=== PATIENT | male | born 1950 | race Caucasian/White ===

== ENCOUNTER 2016-05-29 14:01 | Inpatient (IN) | payer BC ==
--- NOTE | 2016-05-29 14:04 | PDOC ---
History of Present Illness - General History Source: Patient Exam Limitations: No Limitations - History of Present Illness Initial Comments: 05/29/16 14:20 The patient is a 65 year old male, with significant past medical history of GERD , HTN, who presents today complaining of chest pain starting this morning. The patient was talking to his son when he felt a sharp pain localized to the middle of his chest. He states the pain is a 4/10 in severity and was accompanied by sweats. The patient states that the chest pain is present at this moment. He denies performing any strenuous activity or heavy lifting. The patient notes that he is scheduled for a cholecystectomy on 06/08/16. No SOB, cough. No fever, chills, nausea, vomiting. No abdominal pain. Allergies: none reported 05/29/16 14:27 <Rosita Lima - Last Filed: 05/29/16 15:54> <Uzma Pacheco - Last Filed: 05/29/16 15:56> - General Chief Complaint: Chest Pain Stated Complaint: CHEST PAIN Time Seen by Provider: 05/29/16 14:03 Past History <Rosita Lima - Last Filed: 05/29/16 15:54> <Uzma Pacheco - Last Filed: 05/29/16 15:56> - Past Medical History Allergies/Adverse Reactions: Allergies Allergy/AdvReac Type Severity Reaction Status Date / Time No Known Allergies Allergy Verified 05/29/16 14:03 Home Medications: Ambulatory Orders Nebivolol [Bystolic -] 5 mg PO DAILY 05/29/16 Review of Systems - Review of Systems Able to Perform ROS?: Yes Comments:: 05/29/16 14:22 GENERAL/CONSTITUTIONAL: Yes: sweats. No fever or chills. No weakness. HEAD, EYES, EARS, NOSE AND THROAT: No change in vision. No ear pain or discharge. No sore throat. CARDIOVASCULAR: Yes: chest pain. No shortness of breath. RESPIRATORY: No cough, wheezing, or hemoptysis. GASTROINTESTINAL: No nausea, vomiting, diarrhea or constipation. GENITOURINARY: No dysuria, frequency, or change in urination. MUSCULOSKELETAL: No joint or muscle swelling or pain. No neck or back pain. SKIN: No rash NEUROLOGIC: No headache, vertigo, loss of consciousness, or change in strength/ sensation. ENDOCRINE: No increased thirst. No abnormal weight change. HEMATOLOGIC/LYMPHATIC: No anemia, easy bleeding, or history of blood clots. ALLERGIC/IMMUNOLOGIC: No hives or skin allergy. <Rosita Lima - Last Filed: 05/29/16 15:54> *Physical Exam - Vital Signs Last Vital Signs Temp Pulse Resp BP Pulse Ox 98.5 F 55 L 18 169/90 100 05/29/16 14:02 05/29/16 14:02 05/29/16 14:02 05/29/16 14:02 05/29/16 14:02 - Physical Exam Comments: 05/29/16 14:22 GENERAL: Anxious. Awake, alert, and fully oriented, in no acute distress HEAD: No signs of trauma EYES: PERRLA, EOMI, sclera anicteric, conjunctiva clear ENT: Auricles normal inspection, hearing grossly normal, nares patent, oropharynx clear without exudates. Moist mucosa NECK: Normal ROM, supple, no lymphadenopathy, JVD, or masses LUNGS: Breath sounds equal, clear to auscultation bilaterally. No wheezes, and no crackles HEART: Regular rate and rhythm, normal S1 and S2, no murmurs, rubs or gallops ABDOMEN: Soft, nontender, normoactive bowel sounds. No guarding, no rebound. No masses EXTREMITIES: Normal range of motion, no edema. No clubbing or cyanosis. No cords, erythema, or tenderness NEUROLOGICAL: Cranial nerves II through XII grossly intact. Normal speech, normal gait SKIN: Warm, Dry, normal turgor, no rashes or lesions noted. <Rosita Lima - Last Filed: 05/29/16 15:54> Heart Score/ECG Review - History History: Moderately suspicious - Electrocardiogram EKG: Non specific repolarization disturbance - Age Age: >/= 65 - Risk Factors Risk Factors Heart Score: Yes Hx Hypertension Based on the list above the patient has:: 1-2 risk factors - Troponin Troponin: </= normal limit - Score Heart Score - Total: 5 <Uzma Pacheco - Last Filed: 05/29/16 15:56> ED Treatment Course - LABORATORY CBC & Chemistry Diagram: 05/29/16 14:17 05/29/16 14:17 - RADIOLOGY Radiograph Interpretation: 05/29/16 14:32 EXAM#: TYPE/EXAM: RESULT: [id number] RAD/CHEST X-RAY PORTABLE* AP portable chest: Chest pain A single AP view of the chest reveals clear lungs, degenerative changes, normal mediastinum, prominent knob, normal shilpa and normal heart. The angles are sharp and the soft tissues are intact. An acute process is not seen. Impression: No acute pathology. No studies for comparison. Reported By: Jose Bejarano MD 05/29/16 1430 - Medications Given in the ED: ED Medications Discontinued Medications Generic Name Dose Route Start Last Admin Trade Name Freq PRN Reason Stop Dose Admin Aspirin 324 mg 05/29/16 14:14 05/29/16 14:17 Asa - PO 05/29/16 14:15 324 mg ONCE ONE Administration <Rosita Lima - Last Filed: 05/29/16 15:54> - LABORATORY CBC & Chemistry Diagram: 05/29/16 14:17 05/29/16 14:17 <Uzma Pacehco - Last Filed: 05/29/16 15:56> Medical Decision Making - Medical Decision Making 05/29/16 15:54 Dr. Morales was paged via paging service at 3:33pm. Dr. Malone is engineering document control clerk, awaiting call back. Dr. Malone called at 3:50pm and spoke with Dr. Pacheco regarding the patient' s care. <Rosita Lima - Last Filed: 05/29/16 15:54> *DC/Admit/Observation/Transfer - Attestations Scribe Attestion: 05/29/16 14:23 Documentation prepared by KAT Rosado, acting as dental assistant medical assistant for Uzma Pacheco MD. <Rosita Lima - Last Filed: 05/29/16 15:54> - Discharge Dispostion Admit: Yes <Uzma Pacheco - Last Filed: 05/29/16 15:56> Diagnosis at time of Disposition: Chest pain Qualifiers: Chest pain type: unspecified Qualified Code(s): R07.9 - Chest pain, unspecified - Discharge Dispostion Condition at time of disposition: Stable
[2016-05-29 14:05] VITALS: BMI 28.8
[2016-05-29] MEDS ORDERED: ASPIRIN 81 MG CHEWABLE TABLETS PO ONE (14:14)
[2016-05-29] MEDS ORDERED: NITROGLYCERIN SUBLINGUAL 1/150 0.4 MG TAB ONE (14:28)
[2016-05-29] MEDS ORDERED: NITROGLYCERIN SUBLINGUAL 1/150 0.4 MG TAB SL ONE (14:30)
[2016-05-29 14:37] LABS: BASOPHIL 0.9 % (0-2.0); EOSINOPHIL 2.5 % (0-4.5); MCH 31.6 pg (25.7-33.7); MCHC 34.8 g/dl (32.0-35.9); MEAN CELL VOLUME 90.8 fl (80-96); MEAN PLT VOLUME 8.1 fl (7.5-11.1); NEUTROPHILS 49.9 % (42.8-82.8); PLATELET COUNT 196 K/MM3 (134-434); RDW 12.5 % (11.9-15.9); WHITE BLOOD COUNT 6.9 K/mm3 (4.0-10.0)
[2016-05-29 14:42] LABS: INR 1.1 (0.82-1.09); PROTHROMBIN TIME (PATIENT) 12.3 SEC (10.2-13.0)
[2016-05-29 14:47] LABS: ALBUMIN 3.9 g/dl (3.5-5.0); ALK PHOS 122 U/L (32-92); ANION GAP 5 (8-16); CALCIUM 9.6 mg/dl (8.4-10.2); CO2 25 mmol/L (22-28); CPK(DFH) 75 IU/L (38-174); CREATININE 0.8 mg/dl (0.6-1.3); GLUCOSE,RANDOM 92 mg/dl (74-106); SGOT/AST 40 U/L (10-42); SGPT/ALT 29 U/L (10-40); TOT PROT 7.2 g/dl (6.4-8.3)
[2016-05-29] MEDS ORDERED: FAMOTIDINE 20 MG/50 ML IVPB 50 ML IVPB ONE ×2 (15:21→15:25)
[2016-05-29 15:26] LABS: TROPONIN I (DFP) < 0.03 ng/ml (0.03-0.50)
[2016-05-29] MEDS ORDERED: morphine CARPU-JECT 4 MG/1 ML DISP.SYRIN IVPUSH ONE (16:51)
[2016-05-29] MEDS ORDERED: morphine CARPU-JECT 2 MG/1 ML DISP.SYRIN IVPUSH PRN ×2 (16:55→17:20)
--- NOTE | 2016-05-29 16:57 | ED.PROV ---
Physicial Exam I saw and examined the patient. - Vital Signs Last Vital Signs Temp Pulse Resp BP Pulse Ox 97.6 F 54 L 18 131/70 100 05/29/16 16:26 05/29/16 16:26 05/29/16 16:26 05/29/16 16:26 05/29/16 16:26 - Physical Exam Reason for Response: 05/29/16 16:57 Called to bedside, as patient developed acute pain in the epigastric/substernal region. He is pacing in the room, in obvious discomfort. VSS. Will give morphine for pain.
[2016-05-29] MEDS ORDERED: NITROGLYCERIN SUBLINGUAL 1/150 0.4 MG TAB SL PRN (17:30)
[2016-05-29] MEDS ORDERED: DOCUSATE SODIUM 100 MG CAPSULE (FP) PO PRN (17:31)
[2016-05-29] MEDS ORDERED: DEXTROSE 5%-0.45% SALINE 1,000 ML IV SCH (17:45)
[2016-05-29] MEDS ORDERED: ONDANSETRON 4 MG/2 ML VIAL ONE (17:47)
[2016-05-29] MEDS: HEPARIN NA (PORCINE) 5,000 UNITS/ML 1ML VIAL SQ SCH (21:15)
[2016-05-29] MEDS: FAMOTIDINE 20 MG/50 ML IVPB 50 ML IVPB SCH (21:15)
[2016-05-29 21:33] LABS: CPK(DFH) 52 IU/L (38-174)
[2016-05-29 21:49] LABS: TROPONIN I (DFP) < 0.03 ng/ml (0.03-0.50)
[2016-05-30 04:27] LABS: TROPONIN I < 0.02 ng/ml (0.00-0.05)
[2016-05-30 08:10] LABS: EOSINOPHIL 0.2 % (0-4.5); MCHC 33.7 g/dl (32.0-35.9); MEAN PLT VOLUME 8.2 fl (7.5-11.1); NEUTROPHILS 83.9 % (42.8-82.8); PLATELET COUNT 172 K/MM3 (134-434); RDW 12.5 % (11.9-15.9); WHITE BLOOD COUNT 11.6 K/mm3 (4.0-10.0)
[2016-05-30 08:43] LABS: ALBUMIN 3.3 g/dl (3.5-5.0); ALK PHOS 170 U/L (32-92); ANION GAP 6 (8-16); BILIRUBIN,TOTAL 4.6 mg/dl (0.2-1.0); CALCIUM 8.7 mg/dl (8.4-10.2); CO2 27 mmol/L (22-28); CREATININE 0.8 mg/dl (0.6-1.3); GLUCOSE,RANDOM 119 mg/dl (74-106); SGOT/AST 196 U/L (10-42); SGPT/ALT 247 U/L (10-40); TOT PROT 6.2 g/dl (6.4-8.3)
[2016-05-30] MEDS ORDERED: morphine CARPU-JECT 4 MG/1 ML DISP.SYRIN ONE (08:50)
[2016-05-30] MEDS ORDERED: ONDANSETRON 4 MG/2 ML VIAL ONE (08:50)
[2016-05-30] MEDS ORDERED: morphine CARPU-JECT 4 MG/1 ML DISP.SYRIN IVPUSH ONE (08:51)
[2016-05-30] MEDS ORDERED: ONDANSETRON 4 MG/2 ML VIAL IVPUSH ONE (08:51)
--- NOTE | 2016-05-30 08:57 | ED.PROV ---
Physicial Exam I saw and examined the patient. - Vital Signs Last Vital Signs Temp Pulse Resp BP Pulse Ox 100.3 F H 60 18 102/57 95 05/30/16 07:41 05/30/16 06:08 05/30/16 06:08 05/30/16 06:08 05/30/16 07:42 - Physical Exam Reason for Response: 05/30/16 08:53 Asked to evaluate this patient who is admitted to the hospital. The patient c/ o severe burning epigastric pain this am that was unrelieved with morphine 2mg IV. The patient's admitting physician has not responded to nursing calls. The patient says that he has had this pain intermittently for the past month. The pain is localized to the epigastrium. Respiratory/Chest: positive: Normal Breath Sounds. negative: Chest Tender Cardiovascular: positive: Regular Rhythm, Regular Rate, S1, S2 Critical Care Time/MDM Note - Medical Decision Making Note: 05/30/16 08:54 65 y/o male with h/o gall stones and epigastric pain. DDx includes but is not limited to: cholecystitis, pancreatitis, ACS, aortic emergnecy. Plan: 1. Labs--cardiac enzymes and lipase 2. EKG 3. Urine analysis 4. Pain control with higher doses of narcotics 5. Zofran for nausea 6. Will discuss with PCP/admitting physician
[2016-05-30] MEDS: FAMOTIDINE 20 MG/50 ML IVPB 50 ML IVPB SCH ×2 (09:34→22:10)
[2016-05-30] MEDS: HEPARIN NA (PORCINE) 5,000 UNITS/ML 1ML VIAL SQ SCH ×2 (09:35→22:09)
[2016-05-30] MEDS: PNEUMOC 13-VAL CONJ-DIP CRM/PF 0.5 ML DISP.SYRIN IM ONE ×2 (09:35→10:42)
--- NOTE | 2016-05-30 09:47 | PN ---
Progress Note (short form) - Note Progress Note: ID Consult dictated Acute cholecystitis Possible biliary sepsis Possible gallstone pancreatitis Obtain c/s Surgical evaluation Empiric Zosyn
[2016-05-30] MEDS ORDERED: NEBIVOLOL 5 MG TABLET (FP) PO SCH (10:00)
[2016-05-30] MEDS ORDERED: PIPERACILLIN/TAZOB 4.5 GM 4.5 GM in DEXTROSE 5%-WATER - 100 ML IVPB SCH (10:00)
[2016-05-30 10:10] LABS: CPK(DFH) 40 IU/L (38-174)
[2016-05-30 10:20] LABS: TROPONIN I (DFP) < 0.03 ng/ml (0.03-0.50)
--- NOTE | 2016-05-30 10:42 | HP ---
Admitting History and Physical - Primary Care Physician PCP: Sheri Morales - Admission Chief Complaint: RUQ abdominal pain radiating to his right side of back since monday History of Present Illness: 65 yr old male came in on monday with sudden onset of excruciating RUQ and epigastric pain and right sided chest pain, had some nausea as well and he came to ER and found to have elevated temp 100.7 and wbc high. per patient he had similar attack about a month ago was at [facility] he got ivabx there and was told that he needs surgery but patient was skeptical about that and refused he has been seeing dr hutchinson every since that episode to see how he is doing he is schedule for gall ballder surgery on june [address] hutchinson in ER: he got asa ful dose and NTG morphine iv abx today he has temp 100.3 elevated wbc count just came back from liver sono was in excruciationg pain in epigastric and RUQ region nad right lower chest wall area earlier today get 2mg morphine no relief then got another 2mg morphine and now pain free History Source: Patient - Past Medical History Cardiovascular: Yes: HTN Gastrointestinal: Yes: GERD - Smoking History Smoking history: Never smoked Have you smoked in the past 12 months: No - Alcohol/Substance Use Hx Alcohol Use: No Home Medications - Allergies Allergies/Adverse Reactions: Allergies Allergy/AdvReac Type Severity Reaction Status Date / Time No Known Allergies Allergy Verified 05/29/16 14:03 - Home Medications Home Medications: Ambulatory Orders Nebivolol [Bystolic -] 5 mg PO DAILY 05/29/16 Review of Systems - Review of Systems Constitutional: reports: Other (no abdominal or chest wall pain- got morphine no nausea- got zofran) Physical Examination Vital Signs: Vital Signs Temperature 100.3 F H 05/30/16 07:41 Pulse Rate 79 05/30/16 09:40 Respiratory Rate 18 05/30/16 09:40 Blood Pressure 125/67 05/30/16 09:40 O2 Sat by Pulse Oximetry (%) 95 05/30/16 07:42 Constitutional: Yes: Calm Neck: Yes: Trachea Midline Cardiovascular: Yes: Regular Rate and Rhythm, S1, S2 Respiratory: Yes: CTA Bilaterally Gastrointestinal: Yes: Soft, Hypoactive Bowel Sounds, Other (no tenderness on exam bc he got iv pain meds a little while ago) Edema: No Neurological: Yes: Alert, Oriented Psychiatric: Yes: Alert, Oriented Labs: CBC, BMP 05/30/16 07:25 05/30/16 07:25 Imaging - Results Ultrasound: Pending Problem List - Problems (1) RUQ abdominal pain Assessment/Plan: NPO r/o cholecystitis iv abx ID on board dr hutchinson to see patient regarding surgery iv fluids iv pain meds iv zofran elevated LFT cehck GGTP and trend LFT DVT px Code(s): R10.11 - RIGHT UPPER QUADRANT PAIN (2) Chest pain Assessment/Plan: most likey liver related pain control will need surgery and med clearance so will get cardio to see patient CE negatie 2 sets EKG NSR Code(s): R07.9 - CHEST PAIN, UNSPECIFIED Qualifiers: Chest pain type: unspecified Qualified Code(s): R07.9 - Chest pain, unspecified (3) GERD (gastroesophageal reflux disease) Assessment/Plan: iv meds Code(s): K21.9 - GASTRO-ESOPHAGEAL REFLUX DISEASE WITHOUT ESOPHAGITIS (4) HTN (hypertension) Assessment/Plan: bystolic Code(s): I10 - ESSENTIAL (PRIMARY) HYPERTENSION
[2016-05-30] MEDS ORDERED: morphine CARPU-JECT 4 MG/1 ML DISP.SYRIN IVPUSH PRN (10:48)
--- NOTE | 2016-05-30 11:02 | CONS ---
DATE OF CONSULTATION: HISTORY: The patient is a 65-year-old male with a known history of cholelithiasis evaluated for fever and abdominal pain. The patient recently had an attack of acute cholecystitis and was hospitalized at [facility]. He was scheduled to have an elective cholecystectomy on June 08, 2016. He was now admitted with complaints of chest pain. He was admitted through the emergency room on May 29, 2016 with complaints of sternal chest pain. His course has been complicated by recurrent, severe epigastric pain associated with nausea but no vomiting. He also has developed low-grade fever. The patient denies any shortness of breath or palpitations. Denies diarrhea. He reports the pain he is experiencing is similar to the pain he had with his acute cholecystitis. PAST MEDICAL HISTORY: Positive for hypertension and gastroesophageal reflux. He is nondiabetic. ALLERGIES: No known allergies. MEDICATIONS: Include Bystolic. SOCIAL HISTORY: He resides at home. Denies tobacco, alcohol, or illicit drug use. REVIEW OF SYSTEMS: Neurologic: No loss of consciousness, seizure activity, or focal weakness. Cardiac: As per HPI. Respiratory: Negative cough or sputum production. Gastrointestinal: As per HPI. Genitourinary: Negative for urinary tract infection. LABORATORY DATA: White count 6.9, hematocrit 45.2, platelet count 196, BUN 16, creatinine 0.8. DIAGNOSTIC DATA: Chest x-ray negative for acute infiltrate. PHYSICAL EXAMINATION: General: He is in moderate distress secondary to epigastric pain. Vital Signs: Temperature 100.3, T-max 100.7, blood pressure 102/57, pulse 60 regular, respirations 18 per minute. HEENT: Sclerae mildly icteric. Dry mucous membranes. Heart: Sounds S1, S2. Lungs: Clear. Abdomen: Hypoactive bowel sounds. At the present time, there is no tenderness elicited. No right upper quadrant or epigastric tenderness to palpation. Extremities: Negative for edema. IMPRESSION: 1. Acute cholecystitis. 2. Possible biliary sepsis. 3. Chest pain syndrome, likely secondary to cholecystitis. 4. Possible gallstone pancreatitis. PLAN: Await blood culture results, surgical evaluation. Empiric antibiotic coverage with Zosyn 4.5 g IV piggyback every 8 hours. Analgesics. We will follow. Thank you for the kind referral. JOSÉ MIGUEL REYNAGA M.D. [id number]
--- NOTE | 2016-05-30 11:10 | CONSULT ---
Consult Consult Specialty:: Cardiology Referred by:: Dr Freitas Reason for Consultation:: CP, pre-op - History of Present Illness Chief Complaint: epigastric pain History of Present Illness: 65 yo male with remote smoking (jn his 20s), recent hx of hx (about a month ago) , recently developed abd pain -. dx with cholelithiasis and scheduled for surgery on 06/17/[address] hutchinson, presents here with severe epigastric pain. Patient clearly describes pain in epigastric area with some radiation laterally to the right, but no chest or back radiation. he reports some SOB with the severe pain, but no palpitations or dizziness. He is now pain free after pain meds He has no history of CAD, NE, CP syndrome or CHF. - History Source History Provided By: Patient - Past Medical History Cardio/Vascular: Yes: HTN (recent diagnosis a month ago after being diagnosed with cholelithiasis) Gastrointestinal: Yes: GERD Hepatobiliary: Yes: Cholelithiasis - Past Surgical History Additional Surgical History: right hernia, cataract (? side), left ear for tympanic membrane upture?, left finger resection after a table saw accident in 2008 - Alcohol/Substance Use Hx Alcohol Use: No - Smoking History Smoking history: Former smoker (remote, in his 20s) Have you smoked in the past 12 months: No - Social History Usual Living Arrangement: With Spouse (2nd spouse) Home Medications - Allergies Allergies/Adverse Reactions: Allergies Allergy/AdvReac Type Severity Reaction Status Date / Time No Known Allergies Allergy Verified 05/29/16 14:03 - Home Medications Home Medications: Ambulatory Orders Nebivolol [Bystolic -] 5 mg PO DAILY 05/29/16 Family Disease History - Family Disease History Family History: Denies (premature CAD, though father of Mi at 70. Had had valve surgery earlier) Review of Systems - Review of Systems Constitutional: reports: Fever (at gonzalo eof exam) Eyes: reports: No Symptoms HENT: reports: No Symptoms Neck: reports: No Symptoms Cardiovascular: reports: Edema (rare dependent (has varicosities)), Shortness of Breath (with the epigastric pain) Gastrointestinal: reports: Abdominal Pain (epigastric) Genitourinary: reports: No Symptoms Musculoskeletal: reports: No Symptoms Neurological: reports: No Symptoms Psychiatric: reports: No Symptoms Physical Exam Vital Signs: Vital Signs Temperature 102.1 F H 05/30/16 10:00 Pulse Rate 79 05/30/16 09:40 Respiratory Rate 18 05/30/16 09:40 Blood Pressure 125/67 05/30/16 09:40 O2 Sat by Pulse Oximetry (%) 95 05/30/16 07:42 Constitutional: Yes: No Distress Eyes: Yes: Conjunctiva Clear HENT: Yes: Atraumatic Neck: Yes: Supple Cardiovascular: Yes: Regular Rate and Rhythm. No: Murmur Respiratory: Yes: CTA Bilaterally Gastrointestinal: Yes: Normal Bowel Sounds, Soft, Tenderness (mild) Extremities: Yes: Other (warm, mild varicosities) Edema: No Peripheral Pulses WNL: Yes Neurological: Yes: Alert, Oriented Psychiatric: Yes: Alert, Oriented Labs: CBC, BMP 05/30/16 07:25 05/30/16 07:25 Imaging - Results Chest X-ray: Report Reviewed, Image Reviewed EKG: Report Reviewed, Image Reviewed (SR, RBBB, no acute changes(repeat EKG w/o sign changes)) Other: Other (tele -. SR) Assessment/Plan 65 yo male with the above history, here with severe epigastric pain -. ruled out for NE (has had 4 neg trop I) EKG w/o acute changes I think the epigastric pain was truly from his GB disease rather than atypical angina No cardiac contraindications to the intended surgery Rec: Proceed with ERCP/surgery as deemed indicated Continue bystolic Pain management Per Im/GI/surgery Thanks! We'll follow! D/w pt and at bedside D/w RN
[2016-05-30] MEDS: ACETAMINOPHEN 1000 MG/100 ML VIAL (NON FORMULARY) IVPB PRN (11:31)
[2016-05-30 11:40] LABS: PH,URINE 5.5 (4.5-8); URINE APPEARANCE Clear; URINE BILIRUBIN 3+ (NEGATIVE); URINE GLUCOSE (UA) Negative (NEGATIVE); URINE KETONE Negative (NEGATIVE); URINE LEUK ESTERASE Negative (NEGATIVE); URINE NITRITE Negative (NEGATIVE); URINE PROTEIN Trace (NEGATIVE); URINE UROBILINOGEN 1.0 E.U/dl (0.2-1.0)
[2016-05-30 12:00] LABS: URINE BLOOD TRACE (NEGATIVE); URINE COLOR DK YELLOW
[2016-05-30 12:02] LABS: URINE MUCUS 1+; URINE WBC 0-3 (3-5)
--- NOTE | 2016-05-30 12:43 | PN ---
Progress Note (short form) - Note Progress Note: spoke to surgery plan for surgery later in week after ERCP awaitng ultrasound report will consult GI for ERCP given elevated LFT repeat LFT in am Problem List - Problems (1) RUQ abdominal pain Code(s): R10.11 - RIGHT UPPER QUADRANT PAIN (2) Chest pain Code(s): R07.9 - CHEST PAIN, UNSPECIFIED Qualifiers: Qualified Code(s): R07.9 - Chest pain, unspecified (3) GERD (gastroesophageal reflux disease) Code(s): K21.9 - GASTRO-ESOPHAGEAL REFLUX DISEASE WITHOUT ESOPHAGITIS (4) HTN (hypertension) Code(s): I10 - ESSENTIAL (PRIMARY) HYPERTENSION
--- NOTE | 2016-05-30 12:43 | PN ---
Progress Note (short form) - Note Progress Note: surgery asked to evaluate for abd pain. full eval to follow. Labs suspicious for choledocholithiasis and dilated cbd. Dr. Diaz to be called to evaluate for ERCP.
--- NOTE | 2016-05-30 12:50 | PN ---
Progress Note (short form) - Note Progress Note: dr kylie woodson go to [facility] will consult dr haley and see if hey have priviliges there dr s[place] Problem List - Problems (1) RUQ abdominal pain Code(s): R10.11 - RIGHT UPPER QUADRANT PAIN (2) Chest pain Code(s): R07.9 - CHEST PAIN, UNSPECIFIED Qualifiers: Chest pain type: unspecified Qualified Code(s): R07.9 - Chest pain, unspecified (3) GERD (gastroesophageal reflux disease) Code(s): K21.9 - GASTRO-ESOPHAGEAL REFLUX DISEASE WITHOUT ESOPHAGITIS (4) HTN (hypertension) Code(s): I10 - ESSENTIAL (PRIMARY) HYPERTENSION
--- NOTE | 2016-05-30 13:50 | PN ---
Progress Note (short form) - Note Progress Note: dr hansa wolfe ERCP and dulce maria haley and wilfrido wilder come [facility] will have paient transfer to [facility] for ERCP and then surgery spoke to electric motor repair supervisor Problem List - Problems (1) RUQ abdominal pain Code(s): R10.11 - RIGHT UPPER QUADRANT PAIN (2) Chest pain Code(s): R07.9 - CHEST PAIN, UNSPECIFIED Qualifiers: Chest pain type: unspecified Qualified Code(s): R07.9 - Chest pain, unspecified (3) GERD (gastroesophageal reflux disease) Code(s): K21.9 - GASTRO-ESOPHAGEAL REFLUX DISEASE WITHOUT ESOPHAGITIS (4) HTN (hypertension) Code(s): I10 - ESSENTIAL (PRIMARY) HYPERTENSION
--- NOTE | 2016-05-30 14:19 | EKG ---
Test Reason : Blood Pressure : / mmHG Vent. Rate : 055 BPM Atrial Rate : 055 BPM P-R Int : 130 ms QRS Dur : 128 ms QT Int : 452 ms P-R-T Axes : 045 -37 020 degrees QTc Int : 432 ms SINUS BRADYCARDIA LEFT AXIS DEVIATION RIGHT BUNDLE BRANCH BLOCK NO PREVIOUS ECGS AVAILABLE Confirmed by MD FRAUSTO MARJORY ([id number]) on 05/30/2016 2:19:45 PM Referred By: CARMINA LUCAS Confirmed By:LEFTY FRAUSTO MD
[2016-05-30] MEDS ORDERED: SODIUM CHLORIDE 1,500 ML IV ONE (16:15)
--- NOTE | 2016-05-30 16:22 | CON.GI ---
Consult Consult Specialty:: GI Referred by:: Dr Morales Reason for Consultation:: abdominal pain - History of Present Illness Chief Complaint: Abdominal and chest pain History of Present Illness: 65 seen last month at [facility] with abdominal pain that proved to be cholecystitis. He was seen by Dr Carbajal who planned on doing abbie as opt next week. The patient now comes to the the [facility] with severe epigastric/ chest pain which began acutely. A consult was called with Dr Brunson but he is on vacation and as such,, the patient was transferred here after spending 36 hours at [facility]. On admission he had markedly elevated LFTs with a t bili of 4.6. This morning prior to his transfer here he had a BP of 78/55, and a temp >102. He states the pain resolved at ~9AM and he currently feels much better. He has had no radiologic studies done and no repeat BW to this point. - History Source History Provided By: Patient, Medical Record Limitations to Obtaining History: No Limitations - Past Medical History Cardio/Vascular: Yes: HTN (recent diagnosis a month ago after being diagnosed with cholelithiasis) Gastrointestinal: Yes: GERD Hepatobiliary: Yes: Cholelithiasis - Past Surgical History Additional Surgical History: right hernia, cataract (? side), left ear for tympanic membrane upture?, left finger resection after a table saw accident in 2008 - Alcohol/Substance Use Hx Alcohol Use: No - Smoking History Smoking history: Former smoker (remote, in his 20s) Have you smoked in the past 12 months: No - Social History Usual Living Arrangement: With Spouse (2nd spouse) Home Medications - Allergies Allergies/Adverse Reactions: Allergies Allergy/AdvReac Type Severity Reaction Status Date / Time No Known Allergies Allergy Verified 05/29/16 14:03 - Home Medications Home Medications: Ambulatory Orders Nebivolol [Bystolic -] 5 mg PO DAILY 05/29/16 Physical Exam-GI Vital Signs: Vital Signs Temperature 98.7 F 05/30/16 14:27 Pulse Rate 68 05/30/16 14:47 Respiratory Rate 18 05/30/16 14:47 Blood Pressure 98/54 05/30/16 14:47 O2 Sat by Pulse Oximetry (%) 95 05/30/16 07:42 Constitutional: Yes: Well Nourished, No Distress HENT: Yes: Normocephalic Neck: Yes: Supple Cardiovascular: Yes: Regular Rate and Rhythm Respiratory: Yes: CTA Bilaterally Gastrointestinal Inspection: Yes: WNL ...Auscultate: Yes: Normoactive Bowel Sounds ...Palpate: Yes: Soft. No: Tenderness Labs: CBC, BMP 05/30/16 07:25 05/30/16 07:25 INR, PTT INR 1.10 (0.82-1.09) 05/29/16 14:17 Hepatic Panel Total Bilirubin 4.6 mg/dl (0.2-1.0) H D 05/30/16 07:25 AST 196 U/L (10-42) H D 05/30/16 07:25 ALT 247 U/L (10-40) H D 05/30/16 07:25 Alkaline Phosphatase 170 U/L (32-92) H D 05/30/16 07:25 Albumin 3.3 g/dl (3.5-5.0) L 05/30/16 07:25 Abnormal Lab Results 05/29/16 05/30/16 05/30/16 21:00 07:25 07:25 WBC 11.6 H D Neutrophils % 83.9 H D Lymphocytes % 6.2 L D Sodium 135 L Anion Gap 6 L Random Glucose 119 H D Total Bilirubin 4.6 H D AST 196 H D ALT 247 H D Alkaline Phosphatase 170 H D Troponin I < 0.03 L Total Protein 6.2 L Albumin 3.3 L Urine Blood Urine Bilirubin 05/30/16 05/30/16 09:33 11:00 WBC Neutrophils % Lymphocytes % Sodium Anion Gap Random Glucose Total Bilirubin AST ALT Alkaline Phosphatase Troponin I < 0.03 L Total Protein Albumin Urine Blood Trace H Urine Bilirubin 3+ H Assessment/Plan Patient with likely passed gallstone, feeling better at this time. Will get MRCP to better evaluate and repeat BW NPO IV AbRx
--- NOTE | 2016-05-30 17:08 | PN ---
Teaching Attending Note Name of Resident: Paul Bridges ATTENDING PHYSICIAN STATEMENT I saw and evaluated the patient. I reviewed the resident's note and discussed the case with the resident. I agree with the resident's findings and plan as documented. SUBJECTIVE: Patient seen and examined in the ICU. Awake and alert. No CP or SOB. Abdominal pain has improved from yesterday (? passing of stone). Seen by GI. Noted borderline hemodynamics. Currently on IVF resuscitation. Bradycardia likely due to Bystolic. Intake & Output 05/27/16 05/28/16 05/29/16 05/30/16 23:59 23:59 23:59 23:59 Intake Total 0 1727 Output Total 350 400 Balance -350 1327 Weight 184 lb Last Vital Signs Temp Pulse Resp BP Pulse Ox 97.4 F L 47 L 18 100/59 95 05/30/16 16:49 05/30/16 16:49 05/30/16 16:49 05/30/16 16:49 05/30/16 16:40 Active Medications Acetaminophen (Ofirmev Injection -) 1,000 mg IVPB Q8H PRN Last Admin: 05/30/16 11:31 Dose: 1,000 mg Docusate Sodium (Colace -) 100 mg PO BID PRN PRN Reason: CONSTIPATION Heparin Sodium (Porcine) (Heparin -) 5,000 unit SQ BID [facility] Last Admin: 05/30/16 09:35 Dose: Not Given Famotidine/Sodium Chloride (Pepcid 20 Mg Premixed Ivpb -) 50 mls @ 100 mls/hr IVPB BID WM Last Admin: 05/30/16 09:34 Dose: 100 mls/hr Piperacillin Sod/Tazobactam (Sod 4.5 gm/ Dextrose) 100 mls @ 200 mls/hr IVPB Q8H-IV WM PRN Reason: Protocol Last Admin: 05/30/16 10:53 Dose: 200 mls/hr Sodium Chloride (Normal Saline -) 1,500 mls @ 1,500 mls/hr IV ASDIR ONE Stop: 05/30/16 17:14 Last Admin: 05/30/16 14:30 Dose: 1,500 mls/hr Dextrose/Sodium Chloride (Dextrose 5%-Normal Saline+20 Meq Kcl -) 1,000 mls @ 125 mls/hr IV ASDIR WM Morphine Sulfate (Morphine Injection -) 4 mg IVPUSH Q4H PRN PRN Reason: PAIN Nitroglycerin (Nitrostat -) 0.4 mg SL Q5M PRN PRN Reason: FOR CHEST PAIN Ondansetron HCl (Zofran Injection) 4 mg IVPB Q6H PRN PRN Reason: NAUSEA Constitutional: Yes: Awake and alert, NAD Neck: Yes: Trachea Midline Cardiovascular: Yes: S1, S2 bradycardia Respiratory: Yes: Clear Gastrointestinal: Yes: Soft, (+) BS, (+) minimal tenderness to the RUQ Edema: No Neurological: Yes: Alert, Oriented Psychiatric: Yes: Alert, Oriented Labs: Laboratory Results - last 24 hr 05/29/16 05/29/16 05/30/16 21:00 21:00 03:00 WBC RBC Hgb Hct MCV MCHC RDW Plt Count MPV Neutrophils % Lymphocytes % Monocytes % Eosinophils % Basophils % Sodium Potassium Chloride Carbon Dioxide Anion Gap BUN Creatinine Creat Clearance w eGFR Random Glucose Lactic Acid Calcium Total Bilirubin AST ALT Alkaline Phosphatase Creatine Kinase Cancelled 52 48 Troponin I Cancelled < 0.03 L < 0.02 Total Protein Albumin Total Amylase Lipase Urine Color Urine Appearance Urine pH Ur Specific [place] Urine Protein Urine Glucose (UA) Urine Ketones Urine Blood Urine Nitrite Urine Bilirubin Urine Urobilinogen Ur Leukocyte Esterase Urine RBC Urine WBC Ur Epithelial Cells Urine Mucus 05/30/16 05/30/16 05/30/16 07:25 07:25 07:25 WBC 11.6 H D RBC 4.67 Hgb 14.5 Hct 43.0 MCV 92.0 MCHC 33.7 RDW 12.5 Plt Count 172 MPV 8.2 Neutrophils % 83.9 H D Lymphocytes % 6.2 L D Monocytes % 9.7 Eosinophils % 0.2 D Basophils % 0.0 Sodium 135 L Potassium 4.0 Chloride 102 Carbon Dioxide 27 Anion Gap 6 L BUN 14 Creatinine 0.8 Creat Clearance w eGFR > 60 Random Glucose 119 H D Lactic Acid Calcium 8.7 Total Bilirubin 4.6 H D AST 196 H D ALT 247 H D Alkaline Phosphatase 170 H D Creatine Kinase Troponin I Total Protein 6.2 L Albumin 3.3 L Total Amylase 43 Lipase Urine Color Urine Appearance Urine pH Ur Specific [place] Urine Protein Urine Glucose (UA) Urine Ketones Urine Blood Urine Nitrite Urine Bilirubin Urine Urobilinogen Ur Leukocyte Esterase Urine RBC Urine WBC Ur Epithelial Cells Urine Mucus 05/30/16 05/30/16 05/30/16 09:33 09:33 10:00 WBC RBC Hgb Hct MCV MCHC RDW Plt Count MPV Neutrophils % Lymphocytes % Monocytes % Eosinophils % Basophils % Sodium Potassium Chloride Carbon Dioxide Anion Gap BUN Creatinine Creat Clearance w eGFR Random Glucose Lactic Acid 1.350 Calcium Total Bilirubin AST ALT Alkaline Phosphatase Creatine Kinase 40 Troponin I < 0.03 L Total Protein Albumin Total Amylase Lipase 33 Urine Color Urine Appearance Urine pH Ur Specific [place] Urine Protein Urine Glucose (UA) Urine Ketones Urine Blood Urine Nitrite Urine Bilirubin Urine Urobilinogen Ur Leukocyte Esterase Urine RBC Urine WBC Ur Epithelial Cells Urine Mucus 05/30/16 11:00 WBC RBC Hgb Hct MCV MCHC RDW Plt Count MPV Neutrophils % Lymphocytes % Monocytes % Eosinophils % Basophils % Sodium Potassium Chloride Carbon Dioxide Anion Gap BUN Creatinine Creat Clearance w eGFR Random Glucose Lactic Acid Calcium Total Bilirubin AST ALT Alkaline Phosphatase Creatine Kinase Troponin I Total Protein Albumin Total Amylase Lipase Urine Color Dk yellow Urine Appearance Clear Urine pH 5.5 Ur Specific [place] 1.025 Urine Protein Trace Urine Glucose (UA) Negative Urine Ketones Negative Urine Blood Trace H Urine Nitrite Negative Urine Bilirubin 3+ H Urine Urobilinogen 1.0 e.u/dl Ur Leukocyte Esterase Negative Urine RBC 3-5 Urine WBC 0-3 Ur Epithelial Cells 0-3 Urine Mucus 1+ Problem List (1) RUQ abdominal pain suspected Acute cholecystitis Code(s): R10.11 - RIGHT UPPER QUADRANT PAIN (2) Chest pain Code(s): R07.9 - CHEST PAIN, UNSPECIFIED Qualifiers: Chest pain type: unspecified Qualified Code(s): R07.9 - Chest pain, unspecified (3) GERD (gastroesophageal reflux disease) Assessment/Plan: Code(s): K21.9 - GASTRO-ESOPHAGEAL REFLUX DISEASE WITHOUT ESOPHAGITIS (4) HTN (hypertension) Assessment/Plan: Code(s): I10 - ESSENTIAL (PRIMARY) HYPERTENSION PLAN: IVF changed May need additional fluid boluses Palomo-culture D/C Bystolic ABX per ID Noted MRI was ordered NPO per GI Strict I&O VTE prophylaxis ICU monitoring Dr Aj CCTime 35"
--- NOTE | 2016-05-30 17:30 | CONSULT ---
Consultation: PCP: : Sheri Morales CONSULT REQUEST: We have been asked to medically evaluate this patient for (ICU) . HISTORY OF PRESENT ILLNESS: 65YM w significant history of recent of hx HTn, cholelithiasis one month ago, presents with epigastric. pain started yesterday gradually, progressed, constant , sharp, radiating to left, no chest or back radiation, associated with sob, dysuria, urgency, hesitancy, Dark yellow urine, nausea and no vomiting. Patient denies fever, chills, CP, palpitations, dizziness. currently patient denies any Abd pain, Nausea, or any SOB. hx (started on Bystolic two weeks ago) , recently developed abd pain. dx cholelithiasis one month ago patient differed surgery opting for second opinion. He reports some SOB with the severe pain, but no palpitations or dizziness. He is now pain free after pain meds. - Admission Chief Complaint: RUQ abdominal pain radiating to his right side of back since monday - History Source History Provided By: Patient, Medical Record Limitations to Obtaining History: No Limitations - Past Medical History Cardio/Vascular: Yes: HTN (recent diagnosis a month ago after being diagnosed with cholelithiasis) Gastrointestinal: Yes: GERD Hepatobiliary: Yes: Cholelithiasis Surgical History: left ear for tympanic membrane rupture repair, right hernia, left 3rd and 4th digit resection, and 2nd and 5th digit repair after a table saw accident in 2008 Social history: occacianal drinks beer, 15 pack years (quit 25 years ago), no history drug use. 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 Family History: father [place] 70's, mother DM, sister at 46 years of age ovarian CA. REVIEW OF SYSTEMS: CONSTITUTIONAL: Absent: fever, chills, diaphoresis, generalized weakness, malaise, loss of appetite, weight change HEENT: Absent: rhinorrhea, nasal congestion, throat pain, throat swelling, difficulty swallowing, mouth swelling, ear pain, eye pain, visual changes CARDIOVASCULAR: Absent: chest pain, syncope, palpitations, irregular heart rate, lightheadedness , peripheral edema RESPIRATORY: Absent: cough, shortness of breath, dyspnea with exertion, orthopnea, wheezing, stridor, hemoptysis. GASTROINTESTINAL: Absent: abdominal pain, abdominal distension, nausea, vomiting, diarrhea, constipation, melena, hematochezia GENITOURINARY: dysuria, urgency, hesitancy, Dark yellow urine Absent: frequency, hematuria, flank pain, genital pain MUSCULOSKELETAL: Absent: myalgia, arthralgia, joint swelling, back pain, neck pain SKIN: Absent: rash, itching, pallor HEMATOLOGIC/IMMUNOLOGIC: Absent: easy bleeding, easy bruising, lymphadenopathy, frequent infections ENDOCRINE: Absent: unexplained weight gain, unexplained weight loss, heat intolerance, cold intolerance NEUROLOGIC: Absent: headache, focal weakness or paresthesias, dizziness, unsteady gait, seizure, mental status changes, bladder or bowel incontinence PSYCHIATRIC: Absent: anxiety, depression, suicidal or homicidal ideation, hallucinations. PHYSICAL EXAMINATION Vital Signs - 24 hr 05/29/16 05/29/16 05/30/16 19:41 22:40 06:08 Temperature 100.7 F H 99.5 F Pulse Rate 85 60 Respiratory 18 17 18 Rate Blood Pressure 104/50 102/57 O2 Sat by Pulse 100 92 L 95 Oximetry (%) 05/30/16 05/30/16 05/30/16 07:41 07:42 09:40 Temperature 100.3 F H Pulse Rate 79 Respiratory 18 Rate Blood Pressure 125/67 O2 Sat by Pulse 95 Oximetry (%) 05/30/16 05/30/16 05/30/16 10:00 12:05 14:15 Temperature 102.1 F H 100.4 F H Pulse Rate 58 L Respiratory Rate Blood Pressure 78/55 O2 Sat by Pulse Oximetry (%) 05/30/16 05/30/16 14:27 14:47 Temperature 98.7 F Pulse Rate 68 Respiratory 18 Rate Blood Pressure 98/54 O2 Sat by Pulse Oximetry (%) GENERAL: Awake, alert, and fully oriented, in no acute distress. HEAD: Normal with no signs of trauma. EYES: Jaundice, extraocular movements intact, sclera anicteric, EARS, NOSE, THROAT: Ears normal, nares patent, oropharynx clear without exudates. dry mucous membranes. NECK: Normal range of motion, supple without lymphadenopathy, JVD, or masses. LUNGS: Breath sounds equal, crackles Right lung bases, No wheezes, No accessory muscle use. HEART: Regular rate and rhythm, normal S1 and S2 without murmur, rub or gallop. ABDOMEN: Soft, mild tenderness epgastric area, not distended, normoactive bowel sounds, no guarding, no rebound, no masses. No hepatomegaly or splenomegaly. MUSCULOSKELETAL: Normal range of motion at all joints. bony deformities right hand missing part 3rd and 4th digit, No CVA tenderness. EXTREMITIES: 2+ pulses, warm, well-perfused. No calf tenderness. No peripheral edema. NEUROLOGICAL: Cranial nerves II-XII intact. Normal speech.gait no assessed. PSYCHIATRIC: Cooperative. Good eye contact. Appropriate mood and affect. SKIN: Warm, dry, normal turgor, no rashes or lesions noted. Laboratory Results - last 24 hr 05/29/16 05/29/16 05/30/16 21:00 21:00 03:00 WBC RBC Hgb Hct MCV MCHC RDW Plt Count MPV Neutrophils % Lymphocytes % Monocytes % Eosinophils % Basophils % Sodium Potassium Chloride Carbon Dioxide Anion Gap BUN Creatinine Creat Clearance w eGFR Random Glucose Lactic Acid Calcium Total Bilirubin AST ALT Alkaline Phosphatase Creatine Kinase Cancelled 52 48 Troponin I Cancelled < 0.03 L < 0.02 Total Protein Albumin Total Amylase Lipase Urine Color Urine Appearance Urine pH Ur Specific [place] Urine Protein Urine Glucose (UA) Urine Ketones Urine Blood Urine Nitrite Urine Bilirubin Urine Urobilinogen Ur Leukocyte Esterase Urine RBC Urine WBC Ur Epithelial Cells Urine Mucus 05/30/16 05/30/16 05/30/16 07:25 07:25 07:25 WBC 11.6 H D RBC 4.67 Hgb 14.5 Hct 43.0 MCV 92.0 MCHC 33.7 RDW 12.5 Plt Count 172 MPV 8.2 Neutrophils % 83.9 H D Lymphocytes % 6.2 L D Monocytes % 9.7 Eosinophils % 0.2 D Basophils % 0.0 Sodium 135 L Potassium 4.0 Chloride 102 Carbon Dioxide 27 Anion Gap 6 L BUN 14 Creatinine 0.8 Creat Clearance w eGFR > 60 Random Glucose 119 H D Lactic Acid Calcium 8.7 Total Bilirubin 4.6 H D AST 196 H D ALT 247 H D Alkaline Phosphatase 170 H D Creatine Kinase Troponin I Total Protein 6.2 L Albumin 3.3 L Total Amylase 43 Lipase Urine Color Urine Appearance Urine pH Ur Specific [place] Urine Protein Urine Glucose (UA) Urine Ketones Urine Blood Urine Nitrite Urine Bilirubin Urine Urobilinogen Ur Leukocyte Esterase Urine RBC Urine WBC Ur Epithelial Cells Urine Mucus 05/30/16 05/30/16 05/30/16 09:33 09:33 10:00 WBC RBC Hgb Hct MCV MCHC RDW Plt Count MPV Neutrophils % Lymphocytes % Monocytes % Eosinophils % Basophils % Sodium Potassium Chloride Carbon Dioxide Anion Gap BUN Creatinine Creat Clearance w eGFR Random Glucose Lactic Acid 1.350 Calcium Total Bilirubin AST ALT Alkaline Phosphatase Creatine Kinase 40 Troponin I < 0.03 L Total Protein Albumin Total Amylase Lipase 33 Urine Color Urine Appearance Urine pH Ur Specific [place] Urine Protein Urine Glucose (UA) Urine Ketones Urine Blood Urine Nitrite Urine Bilirubin Urine Urobilinogen Ur Leukocyte Esterase Urine RBC Urine WBC Ur Epithelial Cells Urine Mucus 05/30/16 11:00 WBC RBC Hgb Hct MCV MCHC RDW Plt Count MPV Neutrophils % Lymphocytes % Monocytes % Eosinophils % Basophils % Sodium Potassium Chloride Carbon Dioxide Anion Gap BUN Creatinine Creat Clearance w eGFR Random Glucose Lactic Acid Calcium Total Bilirubin AST ALT Alkaline Phosphatase Creatine Kinase Troponin I Total Protein Albumin Total Amylase Lipase Urine Color Dk yellow Urine Appearance Clear Urine pH 5.5 Ur Specific [place] 1.025 Urine Protein Trace Urine Glucose (UA) Negative Urine Ketones Negative Urine Blood Trace H Urine Nitrite Negative Urine Bilirubin 3+ H Urine Urobilinogen 1.0 e.u/dl Ur Leukocyte Esterase Negative Urine RBC 3-5 Urine WBC 0-3 Ur Epithelial Cells 0-3 Urine Mucus 1+ Active Medications Generic Name Dose Route Start Last Admin Trade Name Freq PRN Reason Stop Dose Admin Acetaminophen 1,000 mg 05/30/16 09:24 05/30/16 11:31 Ofirmev Injection - IVPB 1,000 mg Q8H PRN Administration Docusate Sodium 100 mg 05/29/16 17:31 Colace - PO BID PRN CONSTIPATION Heparin Sodium (Porcine) 5,000 unit 05/29/16 22:00 05/30/16 09:35 Heparin - SQ Not Given BID WM Famotidine/Sodium Chloride 50 mls @ 100 mls/hr 05/29/16 22:00 05/30/16 09:34 Pepcid 20 Mg Premixed Ivpb - IVPB 100 mls/hr BID WM Administration Dextrose/Sodium Chloride 1,000 mls @ 83 mls/hr 05/29/16 17:45 05/29/16 17:30 D5-1/2ns - IV 83 mls/hr ASDIR WM Administration Piperacillin Sod/Tazobactam 100 mls @ 200 mls/hr 05/30/16 10:00 05/30/16 10:53 Sod 4.5 gm/ Dextrose IVPB 200 mls/hr Q8H-IV WM Administration Protocol Sodium Chloride 1,500 mls @ 1,500 mls/hr 05/30/16 16:15 05/30/16 14:30 Normal Saline - IV 05/30/16 17:14 1,500 mls/hr ASDIR ONE Administration Morphine Sulfate 4 mg 05/30/16 10:48 Morphine Injection - IVPUSH Q4H PRN PAIN Nebivolol 5 mg 05/30/16 10:00 05/30/16 09:40 Bystolic - PO 5 mg DAILY WM Administration Nitroglycerin 0.4 mg 05/29/16 17:30 Nitrostat - SL Q5M PRN FOR CHEST PAIN Ondansetron HCl 4 mg 05/30/16 10:47 Zofran Injection IVPB Q6H PRN NAUSEA ASSESSMENT/PLAN: A consult was called with Dr Brunson but he is on vacation and as such,, the patient was transferred here after spending 36 hours at [facility]. On admission he had markedly elevated LFTs with a t bili of 4.6. This morning prior to his transfer here he had a BP of 78/55, and a temp >102. Sever sepsis: 2/2 RUQ abdominal pain suspected Acute cholecystitis, most likely patient passed gallstone, feeling much better, patient with likely passed gallstone, feeling better at this time. Will get MRCP to better evaluate and repeat BW D5NS May need additional fluid boluses ID consulted GI following Piperacillin Sod/Tazobactam Strict I&O MRI was ordered follow cultures HTN borderline hemodynamics. D/C Bystolic Currently on IVF resuscitation. FEN: NPO replete electrolytes as needed Dextrose/Sodium Chloride DVT heprin 5,00units BID Dispo: We will continue to follow the patient in ICU. Visit type - Emergency Visit Emergency Visit: Yes ED Registration Date: 05/29/16 Care time: The patient presented to the Emergency Department on the above date and was hospitalized for further evaluation of their emergent condition. - New Patient This patient is new to me today: Yes Date on this admission: 05/29/16 - Critical Care Critical Care patient: Yes Total Critical Care Time (in minutes): 42 Critical Care Statement: The care of this patient involved high complexity decision making to prevent further life threatening deterioration of the patient 's condition and/or to evalute & treat vital organ system(s) failure or risk of failure.
[2016-05-30 17:41] LABS: BASOPHIL 0.2 % (0-2.0); EOSINOPHIL 0.7 % (0-4.5); MCH 31.3 pg (25.7-33.7); MEAN CELL VOLUME 92.1 fl (80-96); NEUTROPHILS 82.2 % (42.8-82.8); PLATELET COUNT 156 K/MM3 (134-434); RDW 13.2 % (11.9-15.9); WHITE BLOOD COUNT 10.5 K/mm3 (4.0-10.0)
[2016-05-30] MEDS: D5-NS + 20 MEQ KCL - 1,000 ML IV SCH (17:42)
[2016-05-30] MEDS: PIPERACILLIN/TAZOB 4.5 GM 100 ML IVPB SCH (17:43)
--- NOTE | 2016-05-30 17:46 | PN ---
Progress Note (short form) - Note Progress Note: surgery pt seen and examined. full consult dictated. 65m with known biliary disease admitted for r/o NM and severe chest pain. Initial lfts wnl but repeat this morning markedly elevated. u/s not read but poss dilated cbd noted on wet films. Pt transferred to [facility] for gi eval and poss ercp. on exam abd is soft, nt. pt appears well. Plan- cholelithiasis, elevated lfts- suspect choledocholithiasis. GI w/u in progress. Once cbd cleared or stone proven to have passed, would proceed with surgery this admission. Agree with abx to prophylax against cholangitis.
[2016-05-30 18:45] LABS: ALBUMIN 2.8 g/dl (3.4-5.0); ANION GAP 8 (8-16); CALCIUM 7.8 mg/dL (8.5-10.1); CO2 27 mmol/L (21-32); GLUCOSE,RANDOM 111 mg/dL (74-106)
[2016-05-30 18:49] LABS: ALK PHOS 173 U/L (45-117); BILIRUBIN,TOTAL 5.9 mg/dL (0.2-1.0); CREATININE 1.1 mg/dL (0.7-1.3); SGOT/AST 117 U/L (15-37); SGPT/ALT 209 U/L (12-78); TOT PROT 5.8 g/dl (6.4-8.2)
--- NOTE | 2016-05-30 19:22 | CONS ---
DATE OF CONSULTATION: 05/30/2016 REASON FOR CONSULTATION: Abdominal pain. REQUESTING PHYSICIAN: This is a consultation at the request of Fritz Malone M.D. BRIEF HISTORY: This is a 65-year-old male with known biliary disease, who had been scheduled for elective cholecystectomy in June. He presented to the [place] emergency room on Monday with severe chest pain and was admitted to rule out myocardial infarction. At the time, he had normal liver function tests. He had 3 sets of troponins done which were unremarkable. But because of persistent pain, a general surgery consultation was requested. At my recommendation, liver function tests were repeated, and an ultrasound was ordered. Repeat liver function tests now show markedly elevated with a bilirubin of 4.6, an AST of 196, an ALT of 247, and an alkaline phosphatase of 170. His amylase and lipase are noted to be normal. Patient at this point was transferred to the [facility] for a GI evaluation. Patient currently feels better but still has some epigastric pain, denies nausea, denies vomiting. PAST MEDICAL HISTORY: Significant for gastroesophageal reflux disease and hypertension. ALLERGIES: No known drug allergies. HOME MEDICATIONS: Include Bystolic. PAST SURGICAL HISTORY: Includes hand surgery and a right open inguinal hernia repair. FAMILY HISTORY: Significant for a sister with ovarian cancer. REVIEW OF SYSTEMS: General: Denies fatigue or malaise. Cardiac: Admits to chest pain and sweats. Gastrointestinal: No nausea, no vomiting, no diarrhea. Admits to occasional dark urine. Genitourinary: Denies dysuria. Musculoskeletal: Denies joint pain, joint swelling. Psychiatric: Denies anxiety, depression, or hearing voices. PHYSICAL EXAMINATION: General: This is a well-developed, well-nourished 65-year-old male in no distress. Vital signs: He is afebrile with a T-max of 102.1. HEENT: Head is normocephalic. Sclerae anicteric. Neck: Supple. Chest: Clear. Abdomen: Soft with mild epigastric fullness. No tenderness. He has a well healed right inguinal hernia scar. Extremities: No edema. LABORATORY: On review of his laboratory, his liver function tests are as in HPI. His white blood cell count is elevated at 11.6, which is up from 6.9. He is afebrile, but he has a T-max at 10 o'clock this morning of 102.1. IMAGING: On review of his imaging, he has an ultrasound which has not been read. There appears to be a dilated common bile duct, but this needs to be officially reviewed by the radiologist, as the films are not properly labeled. ASSESSMENT: A 65-year-old male with known cholelithiasis, and biliary disease, presents with severe epigastric pain and chest pain with now markedly elevated liver function test and fever. Clinically suspect he has choledocholithiasis. May even have cholangitis, as he had fevers and jaundice, but he does not have right upper quadrant pain, but he does have epigastric pain, which is likely close enough to Charcot triad. Therefore, I agree with antibiotics. I agree with gastrointestinal workup. Patient may benefit from endoscopic retrograde cholangiopancreatography to clear the duct. If an endoscopic retrograde cholangiopancreatography is not done, then the duct will need to be proven to be cleared by magnetic resonance cholangiopancreatography and resolution of elevation in liver function test and resolution of fevers. Once this is done, patient would benefit from cholecystectomy prior to discharge. I will follow the patient with you once the common duct has been shown to be clear, will make arrangements for cholecystectomy. Risks and benefits of surgery have been explained to patient in detail. These are including but not limited to the possibility of conversion to open, to the possibility of injury to the common bile duct , possibly cystic duct stump leak, possible injury to viscera, possibility of blood loss requiring blood transfusion, possibly future obstruction, possibly future hernia, plus a multitude of medical risks including but not limited to cardiac, neurologic, pulmonary and vascular complications, and even . The patient understands these risks and is agreeable to surgery. DO ANASTACIA LOPEZ/[id number]
--- NOTE | 2016-05-30 20:03 | PN ---
GI Progress Note Subjective: patient seen in ICU, chart reviewed, abd ultrasound done official reading -- pending - Objective Vital Signs: Vital Signs Temperature 97.4 F L 05/30/16 16:49 Pulse Rate 47 L 05/30/16 18:32 Respiratory Rate 20 05/30/16 18:32 Blood Pressure 85/57 05/30/16 18:32 O2 Sat by Pulse Oximetry (%) 95 05/30/16 16:40 Constitutional: Well Nourished Eyes: Yes: Sclera Icterus HENT: Yes: Atraumatic Neck: Yes: Supple Cardiovascular: Yes: Regular Rate and Rhythm Respiratory: Yes: CTA Bilaterally ...Palpate: Yes: Soft. No: Firm/Rigid, Guarding, Hepatomegaly, Mass, Pulsatile Mass, Splenomegaly, Tenderness Labs: CBC, BMP 05/30/16 17:00 INR, PTT INR 1.10 (0.82-1.09) 05/29/16 14:17 Problem List - Problems (1) Obstructive jaundice Assessment/Plan: r/o CBD stone R> await abd ultrasound and MRCP results informed consent obtained foe ERCP continue IV hydration CC: 35 min Code(s): K83.8 - OTHER SPECIFIED DISEASES OF BILIARY TRACT
[2016-05-31] MEDS ORDERED: ATROPINE SULFATE 1 MG/10 ML DISP.SYRIN ONE (00:29)
[2016-05-31] MEDS: PIPERACILLIN/TAZOB 4.5 GM 100 ML IVPB SCH ×3 (01:03→18:04)
[2016-05-31] MEDS: D5-NS + 20 MEQ KCL - 1,000 ML IV SCH ×3 (05:00→18:05)
[2016-05-31 06:56] LABS: TROPONIN I < 0.02 ng/ml (0.00-0.05)
[2016-05-31 07:00] LABS: BASOPHIL 0.4 % (0-2.0); EOSINOPHIL 3.7 % (0-4.5); MCH 31.3 pg (25.7-33.7); MEAN CELL VOLUME 92.1 fl (80-96); MEAN PLT VOLUME 8.3 fl (7.5-11.1); NEUTROPHILS 68.8 % (42.8-82.8); PLATELET COUNT 146 K/MM3 (134-434); RDW 13.3 % (11.9-15.9); WHITE BLOOD COUNT 6.4 K/mm3 (4.0-10.0)
[2016-05-31 07:01] LABS: MAGNESIUM 1.9 mg/dL (1.8-2.4); PHOSPHOROUS 1.8 mg/dL (2.5-4.9)
[2016-05-31 07:42] LABS: GLUCOSE,RANDOM 102 mg/dL (74-106)
[2016-05-31 07:43] LABS: ALBUMIN 2.8 g/dl (3.4-5.0); ANION GAP 9 (8-16); CALCIUM 8.1 mg/dL (8.5-10.1); CO2 25 mmol/L (21-32); SGOT/AST 74 U/L (15-37); SGPT/ALT 168 U/L (12-78); TOT PROT 5.9 g/dl (6.4-8.2)
[2016-05-31 07:44] LABS: ALK PHOS 165 U/L (45-117)
--- NOTE | 2016-05-31 07:50 | PN ---
Physical Exam: SUBJECTIVE: Patient seen and examined patient at bed side in ICU. Patient reports more discomfort and more RUQ and epgastric pain. reports chills. denies subjective fevers, cp, sob, N/V/D. reports two yellow soft BM today. awaiting official MRI abd to direct management for possible ERCP. called radiology and no dilation no stone per MRI, Radiology discussed case with dr. Rivers. OBJECTIVE: Vital Signs Period Temp Pulse Resp BP Sys/Myers Pulse Ox Last 24 Hr 97.4 F-102.1 F 45-79 18-22 78-139/54-87 95-99 GENERAL: Awake, alert, and fully oriented, in mild acute distress. HEAD: Normal with no signs of trauma. EYES: more Jaundice than yesterday, extraocular movements intact, sclera anicteric, EARS, NOSE, THROAT: Ears normal, nares patent, oropharynx clear without exudates. dry mucous membranes. NECK: Normal range of motion, supple without lymphadenopathy, JVD, or masses. LUNGS: Breath sounds equal, crackles Right lung bases, No wheezes, No accessory muscle use. HEART: Regular rate and rhythm, normal S1 and S2 without murmur, rub or gallop. ABDOMEN: Soft, mild tenderness epgastric area, and RUQ, not distended, normoactive bowel sounds, no guarding, no rebound, no masses. No hepatomegaly or splenomegaly. MUSCULOSKELETAL: Normal range of motion at all joints. bony deformities right hand missing part 3rd and 4th digit, No CVA tenderness. EXTREMITIES: 2+ pulses, warm, well-perfused. No calf tenderness. No peripheral edema. NEUROLOGICAL: Cranial nerves II-XII intact. Normal speech.gait no assessed. PSYCHIATRIC: Cooperative. Good eye contact. Appropriate mood and affect. SKIN: Warm, dry, normal turgor, no rashes or lesions noted. Laboratory Results - last 24 hr 05/30/16 05/30/16 05/30/16 07:25 07:25 07:25 WBC 11.6 H D RBC 4.67 Hgb 14.5 Hct 43.0 MCV 92.0 MCHC 33.7 RDW 12.5 Plt Count 172 MPV 8.2 Neutrophils % 83.9 H D Lymphocytes % 6.2 L D Monocytes % 9.7 Eosinophils % 0.2 D Basophils % 0.0 Sodium 135 L Potassium 4.0 Chloride 102 Carbon Dioxide 27 Anion Gap 6 L BUN 14 Creatinine 0.8 Creat Clearance w eGFR > 60 Random Glucose 119 H D Lactic Acid Calcium 8.7 Phosphorus Magnesium Total Bilirubin 4.6 H D AST 196 H D ALT 247 H D Alkaline Phosphatase 170 H D Creatine Kinase Troponin I Total Protein 6.2 L Albumin 3.3 L Total Amylase 43 Lipase Urine Color Urine Appearance Urine pH Ur Specific [place] Urine Protein Urine Glucose (UA) Urine Ketones Urine Blood Urine Nitrite Urine Bilirubin Urine Urobilinogen Ur Leukocyte Esterase Urine RBC Urine WBC Ur Epithelial Cells Urine Mucus 05/30/16 05/30/16 05/30/16 09:33 09:33 10:00 WBC RBC Hgb Hct MCV MCHC RDW Plt Count MPV Neutrophils % Lymphocytes % Monocytes % Eosinophils % Basophils % Sodium Potassium Chloride Carbon Dioxide Anion Gap BUN Creatinine Creat Clearance w eGFR Random Glucose Lactic Acid 1.350 Calcium Phosphorus Magnesium Total Bilirubin AST ALT Alkaline Phosphatase Creatine Kinase 40 Troponin I < 0.03 L Total Protein Albumin Total Amylase Lipase 33 Urine Color Urine Appearance Urine pH Ur Specific [place] Urine Protein Urine Glucose (UA) Urine Ketones Urine Blood Urine Nitrite Urine Bilirubin Urine Urobilinogen Ur Leukocyte Esterase Urine RBC Urine WBC Ur Epithelial Cells Urine Mucus 05/30/16 05/30/16 05/30/16 11:00 17:00 17:00 WBC 10.5 H RBC 4.23 Hgb 13.3 Hct 39.0 MCV 92.1 MCHC 34.0 RDW 13.2 Plt Count 156 MPV 8.0 Neutrophils % 82.2 Lymphocytes % 8.9 Monocytes % 8.0 Eosinophils % 0.7 Basophils % 0.2 Sodium 141 Potassium 4.3 Chloride 106 Carbon Dioxide 27 Anion Gap 8 BUN 14 Creatinine 1.1 Creat Clearance w eGFR > 60 Random Glucose 111 H Lactic Acid Calcium 7.8 L Phosphorus Magnesium Total Bilirubin 5.9 H AST 117 H ALT 209 H Alkaline Phosphatase 173 H Creatine Kinase Troponin I Total Protein 5.8 L Albumin 2.8 L Total Amylase Lipase 86 Urine Color Dk yellow Urine Appearance Clear Urine pH 5.5 Ur Specific [place] 1.025 Urine Protein Trace Urine Glucose (UA) Negative Urine Ketones Negative Urine Blood Trace H Urine Nitrite Negative Urine Bilirubin 3+ H Urine Urobilinogen 1.0 e.u/dl Ur Leukocyte Esterase Negative Urine RBC 3-5 Urine WBC 0-3 Ur Epithelial Cells 0-3 Urine Mucus 1+ 05/31/16 05/31/16 05/31/16 05:15 05:15 05:15 WBC 6.4 D RBC 4.19 Hgb 13.1 Hct 38.6 MCV 92.1 MCHC 34.0 RDW 13.3 Plt Count 146 MPV 8.3 Neutrophils % 68.8 Lymphocytes % 15.5 D Monocytes % 11.6 H Eosinophils % 3.7 D Basophils % 0.4 Sodium Potassium Chloride Carbon Dioxide Anion Gap BUN Creatinine Creat Clearance w eGFR Random Glucose Lactic Acid Calcium Phosphorus 1.8 L Magnesium 1.9 Total Bilirubin AST ALT Alkaline Phosphatase Creatine Kinase 30 L Troponin I < 0.02 Total Protein Albumin Total Amylase Lipase Urine Color Urine Appearance Urine pH Ur Specific [place] Urine Protein Urine Glucose (UA) Urine Ketones Urine Blood Urine Nitrite Urine Bilirubin Urine Urobilinogen Ur Leukocyte Esterase Urine RBC Urine WBC Ur Epithelial Cells Urine Mucus Active Medications Generic Name Dose Route Start Last Admin Trade Name Freq PRN Reason Stop Dose Admin Acetaminophen 1,000 mg 05/30/16 09:24 05/30/16 11:31 Ofirmev Injection - IVPB 1,000 mg Q8H PRN Administration Docusate Sodium 100 mg 05/29/16 17:31 Colace - PO BID PRN CONSTIPATION Heparin Sodium (Porcine) 5,000 unit 05/29/16 22:00 05/30/16 22:09 Heparin - SQ 5,000 unit BID WM Administration Famotidine/Sodium Chloride 50 mls @ 100 mls/hr 05/29/16 22:00 05/30/16 22:10 Pepcid 20 Mg Premixed Ivpb - IVPB 100 mls/hr BID WM Administration Dextrose/Sodium Chloride 1,000 mls @ 125 mls/hr 05/30/16 17:15 05/31/16 05:00 Dextrose 5%-Normal Saline+20 Meq Kcl - IV 125 mls/hr ASDIR WM Administration Piperacillin Sod/Tazobactam Sod 100 mls @ 200 mls/hr 05/30/16 18:00 05/31/16 01 :03 Zosyn 4.5gm Ivpb (Pre-Docked) IVPB 200 mls/hr Q8H-IV WM Administration Protocol Morphine Sulfate 4 mg 05/30/16 10:48 Morphine Injection - IVPUSH Q4H PRN PAIN Nitroglycerin 0.4 mg 05/29/16 17:30 Nitrostat - SL Q5M PRN FOR CHEST PAIN Ondansetron HCl 4 mg 05/30/16 10:47 Zofran Injection IVPB Q6H PRN NAUSEA Laboratory Tests 05/30/16 05/30/16 05/30/16 03:00 07:25 07:25 WBC 11.6 H D Hgb 14.5 Neutrophils % 83.9 H D Calcium Phosphorus Total Bilirubin 4.6 H D GGT AST 196 H D ALT 247 H D Troponin I < 0.02 Total Amylase Lipase 05/30/16 05/30/16 05/30/16 07:25 09:33 09:33 WBC Hgb Neutrophils % Calcium Phosphorus Total Bilirubin GGT AST ALT Troponin I < 0.03 L Total Amylase 43 Lipase 33 05/30/16 05/30/16 05/31/16 17:00 17:00 05:15 WBC 10.5 H 6.4 D Hgb 13.3 13.1 Neutrophils % Calcium Phosphorus Total Bilirubin 5.9 H GGT AST 117 H ALT 209 H Troponin I Total Amylase Lipase 86 05/31/16 05/31/16 05:15 05:15 WBC Hgb Neutrophils % Calcium 8.1 L Phosphorus 1.8 L Total Bilirubin 5.0 H GGT 261 H AST 74 H D ALT 168 H Troponin I < 0.02 Total Amylase Lipase MRI OF THE ABDOMEN WITHOUT IV GADOLINIUM WITH MRCP FINDINGS: The visualized lung bases inferior mediastinum are unremarkable. The liver is normal in size with no evidence of abnormal loss of signal on out of phase imaging to suggest fatty infiltration. There is no evidence of focal hepatic signal abnormality. The pancreas is homogeneous in signal with no evidence of focal signal abnormality. The pancreatic duct is nondilated. The gallbladder is distended containing small layering stones in the region of the neck but with no definite wall thickening or surrounding edema. The CBD is normal in caliber with no evidence of filling defects. There is no intrahepatic biliary ductal dilatation. The pancreatic duct and CBD are seen through the ampulla of Vater and appear widely patent. The adrenal glands are unremarkable. There is no focal renal signal abnormality. There is no hydronephrosis. There is no evidence of abdominal lymphadenopathy or abdominal ascites. Diverticular disease is seen in the cecum and ascending colon. Incompletely characterized lesions measuring approximately 2.1 cm seen in L1 and L3 vertebral arteries. IMPRESSION: Gallstones with no MRI evidence of cholecystitis. No choledocholithiasis or biliary ductal dilatation seen. Incompletely characterized L1 and L3 vertebral bodies lesions possibly hemangiomas. Further evaluation with MRI of the lumbar spine on a nonemergent basis is suggested. ASSESSMENT/PLAN: A consult was called with Dr Brunson but he is on vacation and as such,, the patient was transferred here after spending 36 hours at [facility]. On admission he had markedly elevated LFTs with a t bili. today afebrile wbc and LFTs trending down, Total bili High Sever sepsis: 2/2 RUQ abdominal pain suspected Acute cholecystitis, most likely patient passed gallstone, feeling much better, patient with likely passed gallstone, feeling better at this time. today afebrile wbc and LFTs trending down, Total bili 5.0 High D5NS ID following discussed case with Dr marin awaitng offical MRi report. concerned for obstruction in light of elevated T bili. Piperacillin Sod/Tazobactam Strict I&O follow cultures d/c pepcid started protonix HTN Stable today, may be secondary to medications or early sepsis. D/C Bystolic Currently on IVF resuscitation. Vertebarl body mass: Incompletely characterized L1 and L3 vertebral bodies lesions possibly hemangiomas. will need to follow up as outpatient. Further evaluation with MRI of the lumbar spine on a nonemergent basis is suggested. FEN: advance diet as tolerated, cholesterol fat controlled. replete electrolytes as needed Dextrose/Sodium Chloride DVT heprin 5,00units BID GI prophylaxis PPI Visit type - Emergency Visit Emergency Visit: Yes ED Registration Date: 05/29/16 Care time: The patient presented to the Emergency Department on the above date and was hospitalized for further evaluation of their emergent condition. - New Patient This patient is new to me today: No - Critical Care Critical Care patient: Yes Total Critical Care Time (in minutes): 44 Critical Care Statement: The care of this patient involved high complexity decision making to prevent further life threatening deterioration of the patient 's condition and/or to evalute & treat vital organ system(s) failure or risk of failure.
--- NOTE | 2016-05-31 07:57 | PN ---
Progress Note, Physician History of Present Illness: less pain no n/v no cp - Current Medication List Current Medications: Active Medications Acetaminophen (Ofirmev Injection -) 1,000 mg IVPB Q8H PRN Last Admin: 05/30/16 11:31 Dose: 1,000 mg Docusate Sodium (Colace -) 100 mg PO BID PRN PRN Reason: CONSTIPATION Heparin Sodium (Porcine) (Heparin -) 5,000 unit SQ BID [facility] Last Admin: 05/30/16 22:09 Dose: 5,000 unit Famotidine/Sodium Chloride (Pepcid 20 Mg Premixed Ivpb -) 50 mls @ 100 mls/hr IVPB BID [facility] Last Admin: 05/30/16 22:10 Dose: 100 mls/hr Dextrose/Sodium Chloride (Dextrose 5%-Normal Saline+20 Meq Kcl -) 1,000 mls @ 125 mls/hr IV ASDIR [facility] Last Admin: 05/31/16 05:00 Dose: 125 mls/hr Piperacillin Sod/Tazobactam Sod (Zosyn 4.5gm Ivpb (Pre-Docked)) 100 mls @ 200 mls/hr IVPB Q8H-IV WM PRN Reason: Protocol Last Admin: 05/31/16 01:03 Dose: 200 mls/hr Morphine Sulfate (Morphine Injection -) 4 mg IVPUSH Q4H PRN PRN Reason: PAIN Nitroglycerin (Nitrostat -) 0.4 mg SL Q5M PRN PRN Reason: FOR CHEST PAIN Ondansetron HCl (Zofran Injection) 4 mg IVPB Q6H PRN PRN Reason: NAUSEA - Objective Vital Signs: Vital Signs Temperature 98 F 05/31/16 06:00 Pulse Rate 50 L 05/31/16 06:00 Respiratory Rate 18 05/31/16 06:00 Blood Pressure 139/87 05/31/16 06:00 O2 Sat by Pulse Oximetry (%) 99 05/30/16 22:00 Cardiovascular: Yes: Regular Rate and Rhythm Respiratory: Yes: Regular, CTA Bilaterally Gastrointestinal: Yes: Normal Bowel Sounds, Soft. No: Tenderness Labs: CBC, BMP 05/31/16 05:15 05/31/16 05:15 INR, PTT INR 1.10 (0.82-1.09) 05/29/16 14:17 Problem List - Problems (1) Gallstone of bile duct with gallbladder inflammation and obstruction Assessment/Plan: NPO IV ABX SURGERY AND GI ON BOARD--AWAIT MRCP IVF MONITOR LABS DVT px Code(s): K80.41 - CALCULUS OF BILE DUCT W CHOLECYSTITIS, UNSP, W OBSTRUCTION (2) RUQ abdominal pain Assessment/Plan: ABOVE Code(s): R10.11 - RIGHT UPPER QUADRANT PAIN (3) Chest pain Assessment/Plan: RESOLVED--PROBABLY RELATED TO GB Code(s): R07.9 - CHEST PAIN, UNSPECIFIED Qualifiers: Chest pain type: unspecified Qualified Code(s): R07.9 - Chest pain, unspecified (4) HTN (hypertension) Assessment/Plan: MONITOR BP ON BYSTOLIC Code(s): I10 - ESSENTIAL (PRIMARY) HYPERTENSION (5) Hypotension Assessment/Plan: ?SEPSIS ON ABX MONITOR BP ON IVF AND ABX Code(s): I95.9 - HYPOTENSION, UNSPECIFIED
[2016-05-31] MEDS: HEPARIN NA (PORCINE) 5,000 UNITS/ML 1ML VIAL SQ SCH ×2 (09:15→21:06)
--- NOTE | 2016-05-31 10:53 | PN ---
Progress Note, Physician History of Present Illness: Awake, alert C/o intermittant epigastric pain, nausea No vomiting + soft BMs today Temps, WBC improved Blood c/s GNR MRCP done, results pending - Current Medication List Current Medications: Active Medications Acetaminophen (Ofirmev Injection -) 1,000 mg IVPB Q8H PRN Last Admin: 05/30/16 11:31 Dose: 1,000 mg Docusate Sodium (Colace -) 100 mg PO BID PRN PRN Reason: CONSTIPATION Heparin Sodium (Porcine) (Heparin -) 5,000 unit SQ BID [facility] Last Admin: 05/31/16 09:15 Dose: 5,000 unit Famotidine/Sodium Chloride (Pepcid 20 Mg Premixed Ivpb -) 50 mls @ 100 mls/hr IVPB BID [facility] Last Admin: 05/30/16 22:10 Dose: 100 mls/hr Dextrose/Sodium Chloride (Dextrose 5%-Normal Saline+20 Meq Kcl -) 1,000 mls @ 125 mls/hr IV ASDIR [facility] Last Admin: 05/31/16 05:00 Dose: 125 mls/hr Piperacillin Sod/Tazobactam Sod (Zosyn 4.5gm Ivpb (Pre-Docked)) 100 mls @ 200 mls/hr IVPB Q8H-IV WM PRN Reason: Protocol Last Admin: 05/31/16 09:17 Dose: 200 mls/hr Morphine Sulfate (Morphine Injection -) 4 mg IVPUSH Q4H PRN PRN Reason: PAIN Nitroglycerin (Nitrostat -) 0.4 mg SL Q5M PRN PRN Reason: FOR CHEST PAIN Ondansetron HCl (Zofran Injection) 4 mg IVPB Q6H PRN PRN Reason: NAUSEA - Objective Vital Signs: Vital Signs Temperature 98.9 F 05/31/16 09:23 Pulse Rate 50 L 05/31/16 06:00 Respiratory Rate 18 05/31/16 06:00 Blood Pressure 139/87 05/31/16 06:00 O2 Sat by Pulse Oximetry (%) 98 05/31/16 09:00 Constitutional: Yes: No Distress Eyes: Yes: Sclera Icterus Cardiovascular: Yes: Regular Rate and Rhythm, S1, S2 Respiratory: Yes: CTA Bilaterally Gastrointestinal: Yes: Normal Bowel Sounds, Soft, Tenderness, Other (+ Epigastric tenderness to palp) Edema: No Labs: CBC, BMP 05/31/16 05:15 05/31/16 05:15 INR, PTT INR 1.10 (0.82-1.09) 05/29/16 14:17 Assessment/Plan Probable acute cholecystitis Gram Negative bacteremia/ Biliary sepsis Await results of MRCP GI/ surgical follow up pending identification of blood isolate, continue empiric Zosyn
[2016-05-31] MEDS: FAMOTIDINE 20 MG/50 ML IVPB 50 ML IVPB SCH (11:22)
[2016-05-31] MEDS ORDERED: HYDROmorphone HCL CARPU-JECT 1 MG/1 ML DISP.SYRIN IVPUSH PRN (12:46)
[2016-05-31] MEDS ORDERED: DOCUSATE SODIUM 100 MG CAPSULE (FP) PO PRN (12:46)
--- NOTE | 2016-05-31 13:29 | EKG ---
Test Reason : Blood Pressure : / mmHG Vent. Rate : 043 BPM Atrial Rate : 043 BPM P-R Int : 132 ms QRS Dur : 124 ms QT Int : 466 ms P-R-T Axes : 040 -06 004 degrees QTc Int : 393 ms MARKED SINUS BRADYCARDIA RIGHT BUNDLE BRANCH BLOCK ABNORMAL ECG WHEN COMPARED WITH ECG OF 30-MAY-2016 08:03, VENT. RATE HAS DECREASED BY 36 BPM QT HAS SHORTENED Confirmed by CORRINE CONN MD ([id number]) on 05/31/2016 1:29:24 PM Referred By: Confirmed By:CORRINE CONN MD
--- NOTE | 2016-05-31 13:40 | EKG ---
Test Reason : Blood Pressure : / mmHG Vent. Rate : 079 BPM Atrial Rate : 079 BPM P-R Int : 138 ms QRS Dur : 132 ms QT Int : 392 ms P-R-T Axes : 033 -26 003 degrees QTc Int : 449 ms NORMAL SINUS RHYTHM RIGHT BUNDLE BRANCH BLOCK ABNORMAL ECG WHEN COMPARED WITH ECG OF 29-MAY-2016 14:02, NO SIGNIFICANT CHANGE WAS FOUND Confirmed by CORRINE CONN MD ([id number]) on 05/31/2016 1:40:28 PM Referred By: MD DR. LEIVA Confirmed By:CORRINE CONN MD
[2016-05-31] MEDS: PANTOPRAZOLE SODIUM 100 ML IVPB SCH (14:05)
--- NOTE | 2016-05-31 14:12 | PN ---
Progress Note, Physician History of Present Illness: Currently denies any abdominal pain, chest pain, or dyspnea. - Current Medication List Current Medications: Active Medications Acetaminophen (Ofirmev Injection -) 1,000 mg IVPB Q8H PRN Last Admin: 05/30/16 11:31 Dose: 1,000 mg Docusate Sodium (Colace -) 100 mg PO BID PRN PRN Reason: CONSTIPATION Heparin Sodium (Porcine) (Heparin -) 5,000 unit SQ BID [facility] Last Admin: 05/31/16 09:15 Dose: 5,000 unit Dextrose/Sodium Chloride (Dextrose 5%-Normal Saline+20 Meq Kcl -) 1,000 mls @ 125 mls/hr IV ASDIR WM Last Admin: 05/31/16 05:00 Dose: 125 mls/hr Piperacillin Sod/Tazobactam Sod (Zosyn 4.5gm Ivpb (Pre-Docked)) 100 mls @ 200 mls/hr IVPB Q8H-IV WM PRN Reason: Protocol Last Admin: 05/31/16 09:17 Dose: 200 mls/hr Pantoprazole Sodium (Protonix 40mg Ivpb (Pre-Docked)) 100 mls @ 200 mls/hr IVPB DAILY WM Nitroglycerin (Nitrostat -) 0.4 mg SL Q5M PRN PRN Reason: FOR CHEST PAIN Ondansetron HCl (Zofran Injection) 4 mg IVPB Q6H PRN PRN Reason: NAUSEA - Objective Vital Signs: Vital Signs Temperature 98.9 F 05/31/16 09:23 Pulse Rate 50 L 05/31/16 06:00 Respiratory Rate 18 05/31/16 06:00 Blood Pressure 139/87 05/31/16 06:00 O2 Sat by Pulse Oximetry (%) 98 05/31/16 09:00 Constitutional: Yes: Well Nourished, No Distress Eyes: Yes: Conjunctiva Clear, EOM Intact HENT: Yes: Atraumatic, Normocephalic Cardiovascular: Yes: Regular Rate and Rhythm. No: JVD, Murmur Respiratory: Yes: CTA Bilaterally Gastrointestinal: Yes: Normal Bowel Sounds, Soft. No: Tenderness Edema: No Neurological: Yes: Alert, Oriented, Cran Nerves II-XII Intact Psychiatric: Yes: WNL Labs: CBC, BMP 05/31/16 05:15 05/31/16 05:15 INR, PTT INR 1.10 (0.82-1.09) 05/29/16 14:17 Assessment/Plan 65 yo male with gallstones, who was admitted with severe epigastric pain -> ruled out for UT (trops negative x4) No acute ischemic ECG changes. Patient's epigastric pain was his known gallbladder disease. Patient does not have any cardiac contraindications to surgery if clinically indicated. MRCP results pending. RECS: Patient may proceed with surgery if clinically indicated. Patient may proceed without futher cardiac work-up or intervention. Ensure adequate pain management Further recs as per primary team, GI, and surgery. Will see prn. Please call with questions.
--- NOTE | 2016-05-31 15:27 | PN ---
Teaching Attending Note Name of Resident: Paul Bridges ATTENDING PHYSICIAN STATEMENT I saw and evaluated the patient. I reviewed the resident's note and discussed the case with the resident. I agree with the resident's findings and plan as documented. SUBJECTIVE: Patient seen and examined in the ICU. Awake and alert. No CP or SOB. Abdominal pain has slightly worsened since yesterday. Hungry as he has been NPO. For possible ERCP today. Intake & Output 05/28/16 05/29/16 05/30/16 05/31/16 23:59 23:59 23:59 23:59 Intake Total 0 2077 1600 Output Total 350 650 250 Balance -350 1427 1350 Weight 184 lb 185 lb 8 oz Last Vital Signs Temp Pulse Resp BP Pulse Ox 98.9 F 50 L 18 139/87 98 05/31/16 09:23 05/31/16 06:00 05/31/16 06:00 05/31/16 06:00 05/31/16 09:00 Active Medications Acetaminophen (Ofirmev Injection -) 1,000 mg IVPB Q8H PRN Last Admin: 05/30/16 11:31 Dose: 1,000 mg Docusate Sodium (Colace -) 100 mg PO BID PRN PRN Reason: CONSTIPATION Heparin Sodium (Porcine) (Heparin -) 5,000 unit SQ BID [facility] Last Admin: 05/31/16 09:15 Dose: 5,000 unit Dextrose/Sodium Chloride (Dextrose 5%-Normal Saline+20 Meq Kcl -) 1,000 mls @ 125 mls/hr IV ASDIR [facility] Last Admin: 05/31/16 14:43 Dose: 125 mls/hr Piperacillin Sod/Tazobactam Sod (Zosyn 4.5gm Ivpb (Pre-Docked)) 100 mls @ 200 mls/hr IVPB Q8H-IV WM PRN Reason: Protocol Last Admin: 05/31/16 09:17 Dose: 200 mls/hr Pantoprazole Sodium (Protonix 40mg Ivpb (Pre-Docked)) 100 mls @ 200 mls/hr IVPB DAILY [facility] Last Admin: 05/31/16 14:05 Dose: 200 mls/hr Nitroglycerin (Nitrostat -) 0.4 mg SL Q5M PRN PRN Reason: FOR CHEST PAIN Ondansetron HCl (Zofran Injection) 4 mg IVPB Q6H PRN PRN Reason: NAUSEA Ursodiol (Actigal -) 300 mg PO BID WM Constitutional: Yes: Awake and alert, NAD Neck: Yes: Trachea Midline Cardiovascular: Yes: S1, S2 bradycardia Respiratory: Yes: Clear Gastrointestinal: Yes: Soft, (+) BS, (+) mild tenderness mid-epigastric to the RUQ Edema: No Neurological: Yes: Alert, Oriented Psychiatric: Yes: Alert, Oriented Labs: Laboratory Results - last 24 hr 05/30/16 05/30/16 05/31/16 17:00 17:00 05:15 WBC 10.5 H 6.4 D RBC 4.23 4.19 Hgb 13.3 13.1 Hct 39.0 38.6 MCV 92.1 92.1 MCHC 34.0 34.0 RDW 13.2 13.3 Plt Count 156 146 MPV 8.0 8.3 Neutrophils % 82.2 68.8 Lymphocytes % 8.9 15.5 D Monocytes % 8.0 11.6 H Eosinophils % 0.7 3.7 D Basophils % 0.2 0.4 Sodium 141 Potassium 4.3 Chloride 106 Carbon Dioxide 27 Anion Gap 8 BUN 14 Creatinine 1.1 Creat Clearance w eGFR > 60 Random Glucose 111 H Calcium 7.8 L Phosphorus Magnesium Total Bilirubin 5.9 H GGT AST 117 H ALT 209 H Alkaline Phosphatase 173 H Creatine Kinase Troponin I Total Protein 5.8 L Albumin 2.8 L Lipase 86 05/31/16 05/31/16 05:15 05:15 WBC RBC Hgb Hct MCV MCHC RDW Plt Count MPV Neutrophils % Lymphocytes % Monocytes % Eosinophils % Basophils % Sodium 143 Potassium 4.3 Chloride 109 H Carbon Dioxide 25 Anion Gap 9 BUN 12 Creatinine 1.0 Creat Clearance w eGFR > 60 Random Glucose 102 Calcium 8.1 L Phosphorus 1.8 L Magnesium 1.9 Total Bilirubin 5.0 H GGT 261 H AST 74 H D ALT 168 H Alkaline Phosphatase 165 H Creatine Kinase 30 L Troponin I < 0.02 Total Protein 5.9 L Albumin 2.8 L Lipase Problem List (1) RUQ abdominal pain suspected Acute cholecystitis Code(s): R10.11 - RIGHT UPPER QUADRANT PAIN (2) Chest pain Code(s): R07.9 - CHEST PAIN, UNSPECIFIED Qualifiers: Chest pain type: unspecified Qualified Code(s): R07.9 - Chest pain, unspecified (3) GERD (gastroesophageal reflux disease) Assessment/Plan: Code(s): K21.9 - GASTRO-ESOPHAGEAL REFLUX DISEASE WITHOUT ESOPHAGITIS (4) HTN (hypertension) Assessment/Plan: Code(s): I10 - ESSENTIAL (PRIMARY) HYPERTENSION PLAN: IVF Monitor off Bystolic ABX per ID For possible ERCP NPO Strict I&O VTE prophylaxis Pain control Will need cholecystectomy Dr Aj CCTime 35"
[2016-05-31] MEDS ORDERED: HYDROmorphone HCL CARPU-JECT 1 MG/1 ML DISP.SYRIN IVPB PRN (16:34)
[2016-05-31] MEDS: ONDANSETRON 4 MG/2 ML VIAL IVPB PRN (18:00)
--- NOTE | 2016-05-31 19:09 | PN ---
GI Progress Note Subjective: The patient was seeen in the ICU. The abdominal pain has resolved. Discusssed case with Dr Morales and was informed that he was in [facility] a month a go with similar symptoms. MRCP was done which revealed a normal CBD. He was offered to have to a cholecystectomy but decided to have a second opinion. I reviewed MRCP and discussed the case with Dr Ramirez. Again the CBD and pancreatic duct was normal. The gallbladder was distended with small stones near the csytic duct. HIDS scan done at [facility] revealed a delayed in excretion of the radiotracer too the small yadira. Today he had an episode of severe abdominal pain that got worse after receiving morphine. - Objective Vital Signs: Vital Signs Temperature 99 F 05/31/16 18:00 Pulse Rate 68 05/31/16 18:00 Respiratory Rate 18 05/31/16 18:00 Blood Pressure 128/88 05/31/16 18:00 O2 Sat by Pulse Oximetry (%) 98 05/31/16 09:00 Constitutional: No Distress Eyes: Yes: Sclera Icterus Neck: Yes: Supple Cardiovascular: Yes: Regular Rate and Rhythm Respiratory: Yes: CTA Bilaterally Gastrointestinal Inspection: No: Ascites ...Palpate: Yes: Soft. No: Firm/Rigid, Guarding, Hepatomegaly, Pulsatile Mass, Splenomegaly Labs: CBC, BMP 05/31/16 05:15 05/31/16 05:15 INR, PTT INR 1.10 (0.82-1.09) 05/29/16 14:17 Problem List - Problems (1) Obstructive jaundice Assessment/Plan: possibly patient has passed stone , Sphincter of oddi dyskenisia, biliary sludge R> start on Actigall advance diet serial LFTS left message at office of Dr Gonzales results discussed with the patient Code(s): K83.8 - OTHER SPECIFIED DISEASES OF BILIARY TRACT
[2016-05-31] MEDS ORDERED: PT OWN MED DRAWER 7, Y5N ONE (20:38)
[2016-05-31] MEDS: URSODIOL 300 MG CAPSULE PO SCH (21:06)
[2016-06-01] MEDS ORDERED: SODIUM PHOSPHATE - 20 MM in DEXTROSE 5%-WATER - 250 ML IVPB ONE (00:19)
[2016-06-01] MEDS: PIPERACILLIN/TAZOB 4.5 GM 100 ML IVPB SCH ×3 (02:01→18:08)
[2016-06-01 06:05] LABS: BASOPHIL 0.3 % (0-2.0); EOSINOPHIL 4.4 % (0-4.5); MCH 31.3 pg (25.7-33.7); MCHC 34.3 g/dl (32.0-35.9); MEAN CELL VOLUME 91.4 fl (80-96); MEAN PLT VOLUME 8.3 fl (7.5-11.1); NEUTROPHILS 68.6 % (42.8-82.8); PLATELET COUNT 135 K/MM3 (134-434); RDW 13.5 % (11.9-15.9); WHITE BLOOD COUNT 5.9 K/mm3 (4.0-10.0)
[2016-06-01 06:38] LABS: ALBUMIN 2.8 g/dl (3.4-5.0); ANION GAP 10 (8-16); BILIRUBIN,TOTAL 4.7 mg/dL (0.2-1.0); CALCIUM 7.9 mg/dL (8.5-10.1); CO2 25 mmol/L (21-32); CREATININE 0.8 mg/dL (0.7-1.3); GLUCOSE,RANDOM 102 mg/dL (74-106); MAGNESIUM 1.8 mg/dL (1.8-2.4); PHOSPHOROUS 1.6 mg/dL (2.5-4.9); SGOT/AST 41 U/L (15-37); SGPT/ALT 120 U/L (12-78)
[2016-06-01 06:39] LABS: ALK PHOS 168 U/L (45-117)
--- NOTE | 2016-06-01 07:26 | PN ---
Physical Exam: SUBJECTIVE: Patient seen and examined at bed side. patient complains of same epgastric vague burning pain 05/13. complains of HAQ HR in 40's this morning, loose BMs. epigstric pain with food. Denies CP, SOb, dizziness, N/V/D. Not sleep well last night. WBC improved. afebrile, LFTs trending down but still elevated. Blood Culture - Preliminary + Lactose Fermenting Neg Bacilli OBJECTIVE: Vital Signs Period Temp Pulse Resp BP Sys/Myers Pulse Ox Last 24 Hr 98.9 F-99 F 50-98 16-24 128-166/78-93 98-98 GENERAL: Awake, alert, and fully oriented, in mild acute distress. HEAD: Normal with no signs of trauma. EYES: more Jaundice than yesterday, extraocular movements intact, sclera anicteric, EARS, NOSE, THROAT: Ears normal, nares patent, oropharynx clear without exudates. moist mucous membranes. NECK: Normal range of motion, supple without lymphadenopathy, JVD, or masses. LUNGS: Breath sounds equal, crackles Right lung bases, No wheezes, No accessory muscle use. HEART: Regular rate and rhythm, normal S1 and S2 without murmur, rub or gallop. ABDOMEN: Soft, mild tenderness epgastric area, and RUQ, not distended, normoactive bowel sounds, no guarding, no rebound, no masses. No hepatomegaly or splenomegaly. MUSCULOSKELETAL: Normal range of motion at all joints. bony deformities right hand missing part 3rd and 4th digit, No CVA tenderness. EXTREMITIES: 2+ pulses, warm, well-perfused. No calf tenderness. No peripheral edema. NEUROLOGICAL: Normal speech.gait no assessed. PSYCHIATRIC: Cooperative. Good eye contact. Appropriate mood and affect. SKIN: Warm, dry, normal turgor, no rashes or lesions noted. Laboratory Results - last 24 hr 05/31/16 06/01/16 06/01/16 05:15 05:10 05:10 WBC 5.9 RBC 4.30 Hgb 13.5 Hct 39.3 MCV 91.4 MCHC 34.3 RDW 13.5 Plt Count 135 MPV 8.3 Neutrophils % 68.6 Lymphocytes % 15.6 Monocytes % 11.1 H Eosinophils % 4.4 Basophils % 0.3 Sodium 143 142 Potassium 4.3 4.0 Chloride 109 H 107 Carbon Dioxide 25 25 Anion Gap 9 10 BUN 12 5 L D Creatinine 1.0 0.8 Creat Clearance w eGFR > 60 > 60 Random Glucose 102 102 Calcium 8.1 L 7.9 L Phosphorus 1.6 L Magnesium 1.8 Total Bilirubin 5.0 H 4.7 H GGT 261 H AST 74 H D 41 H D ALT 168 H 120 H D Alkaline Phosphatase 165 H 168 H Total Protein 5.9 L 6.0 L Albumin 2.8 L 2.8 L Active Medications Generic Name Dose Route Start Last Admin Trade Name Freq PRN Reason Stop Dose Admin Acetaminophen 1,000 mg 05/30/16 09:24 06/01/16 12:14 Ofirmev Injection - IVPB 1,000 mg Q8H PRN Administration Acetaminophen 1,000 mg 06/01/16 12:10 Ofirmev Injection - IVPB 06/02/16 06:11 Q6H PRN FEVER OR PAIN Docusate Sodium 100 mg 05/31/16 12:46 Colace - PO BID PRN CONSTIPATION Heparin Sodium (Porcine) 5,000 unit 05/29/16 22:00 06/01/16 09:34 Heparin - SQ 5,000 unit BID WM Administration Piperacillin Sod/Tazobactam Sod 100 mls @ 200 mls/hr 05/30/16 18:00 06/01/16 09 :35 Zosyn 4.5gm Ivpb (Pre-Docked) IVPB 200 mls/hr Q8H-IV WM Administration Protocol Pantoprazole Sodium 100 mls @ 200 mls/hr 05/31/16 13:00 06/01/16 09:34 Protonix 40mg Ivpb (Pre-Docked) IVPB 200 mls/hr DAILY WM Administration Dextrose/Sodium Chloride 1,000 mls @ 100 mls/hr 06/01/16 16:15 D5-Ns - IV ASDIR WM Nitroglycerin 0.4 mg 05/29/16 17:30 Nitrostat - SL Q5M PRN FOR CHEST PAIN Ondansetron HCl 4 mg 05/30/16 10:47 05/31/16 18:00 Zofran Injection IVPB 4 mg Q6H PRN Administration NAUSEA Ursodiol 300 mg 05/31/16 22:00 06/01/16 09:34 Actigal - PO 300 mg BID WM Administration Valsartan 80 mg 06/01/16 12:15 Diovan - PO DAILY [facility] Microbiology 05/30/16 09:33 Blood - Peripheral Venous Blood Culture - Preliminary Lactose Fermenting Neg Bacilli Laboratory Tests 06/01/16 06/01/16 05:10 05:10 WBC 5.9 Calcium 7.9 L Phosphorus 1.6 L Total Bilirubin 4.7 H AST 41 H D ALT 120 H D Alkaline Phosphatase 168 H ASSESSMENT/PLAN: 65YM w significant history of recent of hx HTn, cholelithiasis one month ago, presents with epigastric. On admission he had markedly elevated LFTs with a t bili. today afebrile wbc and LFTs trending down, Total bili High Sever sepsis: 2/2 RUQ abdominal pain suspected Acute cholecystitis, most likely patient passed gallstone, feeling much better, patient with likely passed gallstone, feeling better at this time. today afebrile wbc and LFTs trending down, Total bili 4.7 High MRCP confirms gallstones but not choledocholithiasis, cholecystitis, or dilated cbd. u/s negative as well. ERCP deferred due to negative MRCP. AST and ALT are dropping but alk phos and t.bili appear stagnant. will repeat labs in am, and will consider Gi and surgery input. D5NS ID following Concerned for obstruction in light of elevated T bili. Piperacillin Sod/Tazobactam Strict I&O follow cultures cont protonix Gram Negative bacteremia/ Biliary sepsis Probable 2/2 acute cholecystitis Pending identification of blood isolate, continue empiric Zosyn GI/ Surgery follow up HTN elevated today, and bradycardic, Currently on IVF resuscitation. started [id number] mg decrease IVF continue to hold Bystolic in light of bradycardia Vertebarl body mass: Incompletely characterized L1 and L3 vertebral bodies lesions possibly hemangiomas. will need to follow up as outpatient. Further evaluation with MRI of the lumbar spine on a nonemergent basis is suggested. FEN: advance diet as tolerated, cholesterol fat controlled. NPO at midnight replete electrolytes as needed Dextrose/Sodium Chloride DVT heprin 5,00units BID GI prophylaxis PPI will follow lfts and plan for poss surgery if labs drop consistent with passed stone. keep npo after mn. Visit type - Emergency Visit Emergency Visit: Yes ED Registration Date: 05/29/16 Care time: The patient presented to the Emergency Department on the above date and was hospitalized for further evaluation of their emergent condition. - New Patient This patient is new to me today: No - Critical Care Critical Care patient: Yes Total Critical Care Time (in minutes): 46 Critical Care Statement: The care of this patient involved high complexity decision making to prevent further life threatening deterioration of the patient 's condition and/or to evalute & treat vital organ system(s) failure or risk of failure.
[2016-06-01] MEDS ORDERED: PT OWN MED DRAWER 7, Y5N ONE (08:19)
[2016-06-01] MEDS: HEPARIN NA (PORCINE) 5,000 UNITS/ML 1ML VIAL SQ SCH ×2 (09:34→23:48)
[2016-06-01] MEDS: URSODIOL 300 MG CAPSULE PO SCH ×2 (09:34→23:48)
[2016-06-01] MEDS: PANTOPRAZOLE SODIUM 100 ML IVPB SCH (09:34)
--- NOTE | 2016-06-01 09:58 | PN ---
Progress Note, Physician History of Present Illness: less pain no n/v no cp - Current Medication List Current Medications: Active Medications Acetaminophen (Ofirmev Injection -) 1,000 mg IVPB Q8H PRN Last Admin: 05/30/16 11:31 Dose: 1,000 mg Docusate Sodium (Colace -) 100 mg PO BID PRN PRN Reason: CONSTIPATION Heparin Sodium (Porcine) (Heparin -) 5,000 unit SQ BID [facility] Last Admin: 06/01/16 09:34 Dose: 5,000 unit Dextrose/Sodium Chloride (Dextrose 5%-Normal Saline+20 Meq Kcl -) 1,000 mls @ 125 mls/hr IV ASDIR [facility] Last Admin: 05/31/16 18:05 Dose: Not Given Piperacillin Sod/Tazobactam Sod (Zosyn 4.5gm Ivpb (Pre-Docked)) 100 mls @ 200 mls/hr IVPB Q8H-IV WM PRN Reason: Protocol Last Admin: 06/01/16 09:35 Dose: 200 mls/hr Pantoprazole Sodium (Protonix 40mg Ivpb (Pre-Docked)) 100 mls @ 200 mls/hr IVPB DAILY [facility] Last Admin: 06/01/16 09:34 Dose: 200 mls/hr Nitroglycerin (Nitrostat -) 0.4 mg SL Q5M PRN PRN Reason: FOR CHEST PAIN Ondansetron HCl (Zofran Injection) 4 mg IVPB Q6H PRN PRN Reason: NAUSEA Last Admin: 05/31/16 18:00 Dose: 4 mg Ursodiol (Actigal -) 300 mg PO BID [facility] Last Admin: 06/01/16 09:34 Dose: 300 mg - Objective Vital Signs: Vital Signs Temperature 98.9 F 05/31/16 22:00 Pulse Rate 51 L 06/01/16 02:00 Respiratory Rate 21 06/01/16 02:00 Blood Pressure 133/87 06/01/16 02:00 O2 Sat by Pulse Oximetry (%) 98 05/31/16 20:51 Cardiovascular: Yes: Regular Rate and Rhythm Respiratory: Yes: Regular, CTA Bilaterally Gastrointestinal: Yes: Normal Bowel Sounds, Soft Labs: CBC, BMP 06/01/16 05:10 06/01/16 05:10 INR, PTT INR 1.10 (0.82-1.09) 05/29/16 14:17 Problem List - Problems (1) Gallstone of bile duct with gallbladder inflammation and obstruction Assessment/Plan: IV ABX SURGERY AND GI ON BOARD-- MRCP NOTED SURGICAL F/U REGARDING SURGERY DATE IVF MONITOR LABS DVT px Code(s): K80.41 - CALCULUS OF BILE DUCT W CHOLECYSTITIS, UNSP, W OBSTRUCTION (2) RUQ abdominal pain Assessment/Plan: ABOVE Code(s): R10.11 - RIGHT UPPER QUADRANT PAIN (3) Chest pain Assessment/Plan: RESOLVED--PROBABLY RELATED TO GB Code(s): R07.9 - CHEST PAIN, UNSPECIFIED Qualifiers: Chest pain type: unspecified Qualified Code(s): R07.9 - Chest pain, unspecified (4) HTN (hypertension) Assessment/Plan: MONITOR BP ON BYSTOLIC Code(s): I10 - ESSENTIAL (PRIMARY) HYPERTENSION (5) Hypotension Assessment/Plan: ?SEPSIS ON ABX MONITOR BP ON IVF AND ABX Code(s): I95.9 - HYPOTENSION, UNSPECIFIED (6) Bacteremia Assessment/Plan: ABX ID F/U Code(s): R78.81 - BACTEREMIA
--- NOTE | 2016-06-01 11:27 | PN ---
Progress Note (short form) - Note Progress Note: surgery pt seen and examined. still with some epigastric pain with food. MRCP confirms gallstones but not choledocholithiasis, cholecystitis, or dilated cbd. u/s negative as well. ERCP deferred due to negative MRCP. lfts still elevated. Laboratory Tests 05/30/16 05/31/16 06/01/16 07:25 05:15 05:10 Total Bilirubin 4.6 H D 5.0 H 4.7 H AST 196 H D 74 H D 41 H D ALT 247 H D 168 H 120 H D Alkaline Phosphatase 170 H D 165 H 168 H Plan- working diagnosis is passed cbd stone. If this is the case then lfts should rapidly improve. AST and ALT are dropping but alk phos and t.bili appear stagnant. will repeat lfts tomorrow. would not proceed with surgery until confident cbd is clear. MRCP is not 100% sensitive (90% in new machines) and proceeding with surgery with choledocholithiasis present will increase risk of post surgical complications such as biloma. Also unclear why patient continues to have episgastric pain with food if cbd clear. Consideration also made toward intraoperative cholangiogram, however, this is not optimal. If a stone is noted during surgical cholangiagram patient would then need a post surgical ERCP/stone extraction which would would carry greater risk of complications than preop ercp and if not successful would require a second surgery for cbd exploration which would be made more difficult from the previous cholecystectomy. will follow lfts and plan for poss surgery if labs drop consistent with passed stone. keep npo after mn.
--- NOTE | 2016-06-01 11:30 | EKG ---
Test Reason : Blood Pressure : / mmHG Vent. Rate : 051 BPM Atrial Rate : 051 BPM P-R Int : 134 ms QRS Dur : 124 ms QT Int : 470 ms P-R-T Axes : 025 -12 009 degrees QTc Int : 433 ms SINUS BRADYCARDIA RIGHT BUNDLE BRANCH BLOCK ABNORMAL ECG WHEN COMPARED WITH ECG OF 31-MAY-2016 00:02, NO SIGNIFICANT CHANGE WAS FOUND Confirmed by GRUPO DE LA ROSA MD ([id number]) on 06/01/2016 11:29:52 AM Referred By: Barbi ISLAS Confirmed By:GRUPO DE LA ROSA MD
--- NOTE | 2016-06-01 12:03 | PN ---
Progress Note, Physician History of Present Illness: C/O nausea, loose BMs No vomiting No c/o abdominal pain Temps down, afebrile WBC improved LFTs improving - Current Medication List Current Medications: Active Medications Acetaminophen (Ofirmev Injection -) 1,000 mg IVPB Q8H PRN Last Admin: 05/30/16 11:31 Dose: 1,000 mg Docusate Sodium (Colace -) 100 mg PO BID PRN PRN Reason: CONSTIPATION Heparin Sodium (Porcine) (Heparin -) 5,000 unit SQ BID [facility] Last Admin: 06/01/16 09:34 Dose: 5,000 unit Dextrose/Sodium Chloride (Dextrose 5%-Normal Saline+20 Meq Kcl -) 1,000 mls @ 125 mls/hr IV ASDIR [facility] Last Admin: 05/31/16 18:05 Dose: Not Given Piperacillin Sod/Tazobactam Sod (Zosyn 4.5gm Ivpb (Pre-Docked)) 100 mls @ 200 mls/hr IVPB Q8H-IV WM PRN Reason: Protocol Last Admin: 06/01/16 09:35 Dose: 200 mls/hr Pantoprazole Sodium (Protonix 40mg Ivpb (Pre-Docked)) 100 mls @ 200 mls/hr IVPB DAILY [facility] Last Admin: 06/01/16 09:34 Dose: 200 mls/hr Nitroglycerin (Nitrostat -) 0.4 mg SL Q5M PRN PRN Reason: FOR CHEST PAIN Ondansetron HCl (Zofran Injection) 4 mg IVPB Q6H PRN PRN Reason: NAUSEA Last Admin: 05/31/16 18:00 Dose: 4 mg Ursodiol (Actigal -) 300 mg PO BID [facility] Last Admin: 06/01/16 09:34 Dose: 300 mg - Objective Vital Signs: Vital Signs Temperature 98.9 F 05/31/16 22:00 Pulse Rate 51 L 06/01/16 02:00 Respiratory Rate 21 06/01/16 02:00 Blood Pressure 133/87 06/01/16 02:00 O2 Sat by Pulse Oximetry (%) 98 05/31/16 20:51 Constitutional: Yes: No Distress Eyes: Yes: Conjunctiva Clear Cardiovascular: Yes: Regular Rate and Rhythm, S1, S2 Respiratory: Yes: CTA Bilaterally Gastrointestinal: Yes: Normal Bowel Sounds, Soft. No: Tenderness Edema: No Labs: CBC, BMP 06/01/16 05:10 06/01/16 05:10 INR, PTT INR 1.10 (0.82-1.09) 05/29/16 14:17 Assessment/Plan Probable acute cholecystitis Gram Negative bacteremia/ Biliary sepsis pending identification of blood isolate, continue empiric Zosyn GI/ Surgery follow up
[2016-06-01] MEDS ORDERED: ACETAMINOPHEN 1000 MG/100 ML VIAL (NON FORMULARY) IVPB PRN (12:10)
[2016-06-01] MEDS: ACETAMINOPHEN 1000 MG/100 ML VIAL (NON FORMULARY) IVPB PRN ×2 (12:14→23:52)
[2016-06-01] MEDS: D5-NS + 20 MEQ KCL - 1,000 ML IV SCH (12:19)
[2016-06-01] MEDS: VALSARTAN 80 MG TABLET (UD) PO SCH (15:00)
[2016-06-01] MEDS: DEXTROSE 5%-NORMAL SALINE 1,000 ML IV SCH (17:05)
--- NOTE | 2016-06-01 17:17 | PN ---
Teaching Attending Note Name of Resident: Paul Bridges ATTENDING PHYSICIAN STATEMENT I saw and evaluated the patient. I reviewed the resident's note and discussed the case with the resident. I agree with the resident's findings and plan as documented. SUBJECTIVE: Pt seen and examined in the ICU. Some nausea but no vomiting. +diarrhea. No fevers or chills. Above GI/surgery notes reviewed. c/o frontal headahce. OBJECTIVE: Last Vital Signs Temp Pulse Resp BP Pulse Ox 98.9 F 51 L 21 133/87 98 05/31/16 22:00 06/01/16 02:00 06/01/16 02:00 06/01/16 02:00 05/31/16 20:51 Intake & Output 05/29/16 05/30/16 05/31/16 06/01/16 23:59 23:59 23:59 23:59 Intake Total 0 2077 3450 1975 Output Total 350 650 250 750 Balance -350 1427 3200 1225 Weight 184 lb 185 lb 8 oz 187 lb 2 oz Gen: NAD at rest Heart: RRR Lung: decreased breath sounds at the bases Abd: soft, nontender Ext: no edema CBC, BMP 06/01/16 05:10 06/01/16 05:10 Active Medications Acetaminophen (Ofirmev Injection -) 1,000 mg IVPB Q8H PRN Last Admin: 06/01/16 12:14 Dose: 1,000 mg Acetaminophen (Ofirmev Injection -) 1,000 mg IVPB Q6H PRN PRN Reason: FEVER OR PAIN Stop: 06/02/16 06:11 Docusate Sodium (Colace -) 100 mg PO BID PRN PRN Reason: CONSTIPATION Heparin Sodium (Porcine) (Heparin -) 5,000 unit SQ BID WM Last Admin: 06/01/16 09:34 Dose: 5,000 unit Piperacillin Sod/Tazobactam Sod (Zosyn 4.5gm Ivpb (Pre-Docked)) 100 mls @ 200 mls/hr IVPB Q8H-IV WM PRN Reason: Protocol Last Admin: 06/01/16 09:35 Dose: 200 mls/hr Pantoprazole Sodium (Protonix 40mg Ivpb (Pre-Docked)) 100 mls @ 200 mls/hr IVPB DAILY [facility] Last Admin: 06/01/16 09:34 Dose: 200 mls/hr Dextrose/Sodium Chloride (D5-Ns -) 1,000 mls @ 100 mls/hr IV ASDIR [facility] Last Admin: 06/01/16 17:05 Dose: 100 mls/hr Nitroglycerin (Nitrostat -) 0.4 mg SL Q5M PRN PRN Reason: FOR CHEST PAIN Ondansetron HCl (Zofran Injection) 4 mg IVPB Q6H PRN PRN Reason: NAUSEA Last Admin: 05/31/16 18:00 Dose: 4 mg Ursodiol (Actigal -) 300 mg PO BID [facility] Last Admin: 06/01/16 09:34 Dose: 300 mg Valsartan (Diovan -) 80 mg PO DAILY [facility] Last Admin: 06/01/16 15:00 Dose: 80 mg ASSESSMENT AND PLAN: r/o Acute Cholecystitis Gram Negative Bacteremia Elevated LFTs from above HTN - continue antibiotics - f/u cultures - IVF - PO as tolerated - trend LFTs - continued GI/surgery f/u - antihypertensives - DVT prophylaxis - can monitor on floor
--- NOTE | 2016-06-01 18:22 | PN ---
GI Progress Note Subjective: abdominal pain resolved, has epigastric pain after meals - Objective Vital Signs: Vital Signs Temperature 98.9 F 06/01/16 17:00 Pulse Rate 59 L 06/01/16 17:00 Respiratory Rate 19 06/01/16 17:00 Blood Pressure 152/81 06/01/16 17:00 O2 Sat by Pulse Oximetry (%) 98 06/01/16 09:00 Constitutional: Well Nourished Eyes: Yes: Conjunctiva Clear HENT: Yes: Atraumatic, Tonsillar Exudate Cardiovascular: Yes: Regular Rate and Rhythm Respiratory: Yes: CTA Bilaterally ...Palpate: Yes: Soft. No: Firm/Rigid, Guarding, Hepatomegaly, Mass, Pulsatile Mass, Splenomegaly, Tenderness Labs: CBC, BMP 06/01/16 05:10 06/01/16 05:10 INR, PTT INR 1.10 (0.82-1.09) 05/29/16 14:17 Problem List - Problems (1) Obstructive jaundice Assessment/Plan: --resolving R> continue to trend LFTs continue Actigall 300mg tid Code(s): K83.8 - OTHER SPECIFIED DISEASES OF BILIARY TRACT
[2016-06-02] MEDS: PIPERACILLIN/TAZOB 4.5 GM 100 ML IVPB SCH ×2 (01:21→10:06)
[2016-06-02] MEDS: NEBIVOLOL 5 MG TABLET (FP) PO SCH ×2 (01:52→11:12)
--- NOTE | 2016-06-02 08:27 | PN ---
Progress Note, Physician History of Present Illness: NO PAIN THIS AM - Current Medication List Current Medications: Active Medications Acetaminophen (Ofirmev Injection -) 1,000 mg IVPB Q8H PRN Last Admin: 06/01/16 23:52 Dose: 1,000 mg Docusate Sodium (Colace -) 100 mg PO BID PRN PRN Reason: CONSTIPATION Heparin Sodium (Porcine) (Heparin -) 5,000 unit SQ BID [facility] Last Admin: 06/01/16 23:48 Dose: 5,000 unit Piperacillin Sod/Tazobactam Sod (Zosyn 4.5gm Ivpb (Pre-Docked)) 100 mls @ 200 mls/hr IVPB Q8H-IV WM PRN Reason: Protocol Last Admin: 06/02/16 01:21 Dose: 200 mls/hr Pantoprazole Sodium (Protonix 40mg Ivpb (Pre-Docked)) 100 mls @ 200 mls/hr IVPB DAILY [facility] Last Admin: 06/01/16 09:34 Dose: 200 mls/hr Dextrose/Sodium Chloride (D5-Ns -) 1,000 mls @ 100 mls/hr IV ASDIR [facility] Last Admin: 06/01/16 17:05 Dose: 100 mls/hr Nebivolol (Bystolic -) 5 mg PO DAILY [facility] Last Admin: 06/02/16 01:52 Dose: 5 mg Nitroglycerin (Nitrostat -) 0.4 mg SL Q5M PRN PRN Reason: FOR CHEST PAIN Ondansetron HCl (Zofran Injection) 4 mg IVPB Q6H PRN PRN Reason: NAUSEA Last Admin: 05/31/16 18:00 Dose: 4 mg Ursodiol (Actigal -) 300 mg PO BID [facility] Last Admin: 06/01/16 23:48 Dose: 300 mg Valsartan (Diovan -) 80 mg PO DAILY [facility] Last Admin: 06/01/16 15:00 Dose: 80 mg - Objective Vital Signs: Vital Signs Temperature 98.9 F 06/02/16 06:00 Pulse Rate 54 L 06/02/16 06:00 Respiratory Rate 20 06/02/16 06:00 Blood Pressure 131/89 06/02/16 06:00 O2 Sat by Pulse Oximetry (%) 96 06/01/16 21:00 Neck: Yes: Supple Cardiovascular: Yes: Regular Rate and Rhythm Respiratory: Yes: Regular, CTA Bilaterally Gastrointestinal: Yes: Normal Bowel Sounds, Soft. No: Tenderness Labs: CBC, BMP 06/01/16 05:10 06/01/16 05:10 INR, PTT INR 1.10 (0.82-1.09) 05/29/16 14:17 Problem List - Problems (1) Gallstone of bile duct with gallbladder inflammation and obstruction Assessment/Plan: IV ABX SURGERY AND GI ON BOARD-- MRCP NOTED D/W SURGERY WILL HAVE SURGERY THIS ADMISSION--DEPENDING ON LABS MAY NEED ERCP IVF MONITOR LABS DVT px Code(s): K80.41 - CALCULUS OF BILE DUCT W CHOLECYSTITIS, UNSP, W OBSTRUCTION (2) RUQ abdominal pain Assessment/Plan: ABOVE Code(s): R10.11 - RIGHT UPPER QUADRANT PAIN (3) Chest pain Assessment/Plan: RESOLVED--PROBABLY RELATED TO GB Code(s): R07.9 - CHEST PAIN, UNSPECIFIED Qualifiers: Chest pain type: unspecified Qualified Code(s): R07.9 - Chest pain, unspecified (4) HTN (hypertension) Assessment/Plan: MONITOR BP ON BYSTOLIC Code(s): I10 - ESSENTIAL (PRIMARY) HYPERTENSION (5) Hypotension Code(s): I95.9 - HYPOTENSION, UNSPECIFIED (6) Bacteremia Assessment/Plan: ABX ID F/U--NOTED--ZOSYN Code(s): R78.81 - BACTEREMIA
[2016-06-02 08:41] LABS: BASOPHIL 0.8 % (0-2.0); EOSINOPHIL 5.5 % (0-4.5); MCH 31.1 pg (25.7-33.7); MCHC 34.3 g/dl (32.0-35.9); MEAN CELL VOLUME 90.5 fl (80-96); MEAN PLT VOLUME 8.1 fl (7.5-11.1); PLATELET COUNT 174 K/MM3 (134-434); RDW 13.5 % (11.9-15.9); WHITE BLOOD COUNT 5.5 K/mm3 (4.0-10.0)
[2016-06-02 09:09] LABS: AMYLASE 41 U/L (25-115); ANION GAP 10 (8-16); CO2 23 mmol/L (21-32); CREATININE 0.9 mg/dL (0.7-1.3); GLUCOSE,RANDOM 104 mg/dL (74-106); SGOT/AST 31 U/L (15-37); SGPT/ALT 106 U/L (12-78)
[2016-06-02 09:14] LABS: ALK PHOS 193 U/L (45-117); BILIRUBIN,TOTAL 4.7 mg/dL (0.2-1.0); TOT PROT 6.6 g/dl (6.4-8.2); TROPONIN I < 0.02 ng/ml (0.00-0.05)
[2016-06-02] MEDS: PANTOPRAZOLE SODIUM 100 ML IVPB SCH (10:07)
[2016-06-02] MEDS: URSODIOL 300 MG CAPSULE PO SCH ×2 (11:11→22:55)
[2016-06-02] MEDS: VALSARTAN 80 MG TABLET (UD) PO SCH (11:11)
[2016-06-02] MEDS ORDERED: PT OWN MED DRAWER 7, Y5N ONE (11:47)
[2016-06-02] MEDS: DEXTROSE 5%-NORMAL SALINE 1,000 ML IV SCH (11:53)
[2016-06-02] MEDS: ONDANSETRON 4 MG/2 ML VIAL IVPB PRN (12:06)
[2016-06-02] MEDS: HEPARIN NA (PORCINE) 5,000 UNITS/ML 1ML VIAL SQ SCH ×2 (12:11→22:54)
[2016-06-02] MEDS ORDERED: BUPIVACAINE HCL/PF 0.5% (5MG/ML) 10 ML VIAL ONE (13:26)
--- NOTE | 2016-06-02 15:26 | OP ---
Operative Note - Note: Operative Date: 06/02/16 Pre-Operative Diagnosis: cholelithiasis, choledocholithiasis, abnormal lfts Operation: laparoscopic cholecystectomy, lavage. pale gb, non inflamed Post-Operative Diagnosis: Same as Pre-op Surgeon: Jose Gonzales Anesthesiologist/TECHNOLOGY STRATEGIST: Augie Boss Anesthesia: General Specimens Removed: gb Estimated Blood Loss (mls): 30
[2016-06-02] MEDS ORDERED: PROPOFOL 20 ML ONE (15:29)
[2016-06-02] MEDS ORDERED: SUCCINYLCHOLINE CHLORIDE 200 MG/10 ML VIAL ONE (15:29)
[2016-06-02] MEDS ORDERED: ROCURONIUM BROMIDE 50 MG/5 ML VIAL ONE (15:29)
[2016-06-02] MEDS ORDERED: MIDAZOLAM HCL 2 MG/2 ML SINGLE DOSE VIAL ONE (15:29)
[2016-06-02] MEDS ORDERED: DEXAMETHASONE SOD PHOSPHATE 4 MG/1 ML VIAL ONE (15:47)
[2016-06-02] MEDS ORDERED: ONDANSETRON 4 MG/2 ML VIAL ONE (15:47)
[2016-06-02] MEDS ORDERED: HYDROmorphone HCL/PF 1 MG/ML VIAL (FOR PYXIS CHARGING ONLY) ONE (16:03)
[2016-06-02] MEDS ORDERED: hydrALAZINE HCL 20 MG/ML VIAL ONE (16:11)
[2016-06-02] MEDS ORDERED: NEOSTIGMINE METHYLSULFATE 0.5 MG/ML - 10 ML MDV ONE (16:30)
[2016-06-02] MEDS ORDERED: GLYCOPYRROLATE 0.2 MG/1 ML VIAL ONE (16:31)
[2016-06-02] MEDS ORDERED: ONDANSETRON 4 MG/2 ML VIAL IVPUSH PRN (16:48)
[2016-06-02] MEDS ORDERED: morphine CARPU-JECT 4 MG/1 ML DISP.SYRIN IVPB PRN (16:52)
[2016-06-02] MEDS ORDERED: LACTATED RINGERS SOLUTION 1,000 ML IV SCH (17:00)
[2016-06-02] MEDS ORDERED: DILTIAZEM INJECTION 125 MG in DEXTROSE 5%-WATER - 100 ML IVPB SCH (18:00)
[2016-06-02] MEDS ORDERED: MEROPENEM 500 MG VIAL (RESTRICTED TO ID) IVPB SCH (18:00)
[2016-06-02] MEDS ORDERED: dilTIAZem HCL 125 MG/25 ML - 5 ML VIAL IV ONE (18:05)
[2016-06-02] MEDS: HYDROmorphone HCL CARPU-JECT 1 MG/1 ML DISP.SYRIN IVPUSH PRN ×2 (18:10→18:20)
[2016-06-02 18:11] LABS: MEAN CELL VOLUME 91.1 fl (80-96); MEAN PLT VOLUME 8.1 fl (7.5-11.1); PLATELET COUNT 194 K/MM3 (134-434); RDW 13.5 % (11.9-15.9); WHITE BLOOD COUNT 11.8 K/mm3 (4.0-10.0)
[2016-06-02] MEDS ORDERED: HYDROmorphone HCL CARPU-JECT 2 MG/1 ML DISP.SYRIN ONE (18:11)
[2016-06-02] MEDS ORDERED: DEXTROSE 5%-NORMAL SALINE 1,000 ML IV SCH (18:26)
[2016-06-02] MEDS ORDERED: ONDANSETRON 4 MG/2 ML VIAL IVPB PRN (18:26)
[2016-06-02 19:00] LABS: ALBUMIN 3.1 g/dl (3.4-5.0); ALK PHOS 209 U/L (45-117); ANION GAP 12 (8-16); BILIRUBIN,TOTAL 4.6 mg/dL (0.2-1.0); CALCIUM 8.5 mg/dL (8.5-10.1); CO2 22 mmol/L (21-32); CREATININE 0.8 mg/dL (0.7-1.3); GLUCOSE,RANDOM 160 mg/dL (74-106); SGOT/AST 42 U/L (15-37); SGPT/ALT 104 U/L (12-78); TOT PROT 6.9 g/dl (6.4-8.2); TROPONIN I < 0.02 ng/ml (0.00-0.05)
[2016-06-02] MEDS: MEROPENEM 500 MG in DEXTROSE 5%-WATER - 100 ML IVPB SCH (22:55)
[2016-06-03] MEDS: MEROPENEM 500 MG in DEXTROSE 5%-WATER - 100 ML IVPB SCH ×3 (01:35→18:14)
[2016-06-03] MEDS: morphine CARPU-JECT 2 MG/1 ML DISP.SYRIN IVPB PRN ×2 (02:25→05:59)
--- NOTE | 2016-06-03 07:54 | PN ---
Progress Note, Physician Chief Complaint: Pt. pain controlled, no GA complaints. Back in sinus rhythm after going into A- fib on extubation, resolved after Cardizem drip in PACU. - Current Medication List Current Medications: Active Medications Docusate Sodium (Colace -) 100 mg PO Q12H PRN PRN Reason: CONSTIPATION Heparin Sodium (Porcine) (Heparin -) 5,000 unit SQ BID [facility] Last Admin: 06/02/16 22:54 Dose: 5,000 unit Lactated Ringer's (Lactated Ringers Solution) 1,000 mls @ 125 mls/hr IV ASDIR [facility] Meropenem 500 mg/ Dextrose 100 mls @ 200 mls/hr IVPB Q8H-IV [facility] Last Admin: 06/03/16 01:35 Dose: Not Given Dextrose/Sodium Chloride (D5-Ns -) 1,000 mls @ 100 mls/hr IV ASDIR WM Pantoprazole Sodium (Protonix 40mg Ivpb (Pre-Docked)) 100 mls @ 200 mls/hr IVPB DAILY [facility] [place] Morphine Sulfate (Morphine Injection -) 4 mg IVPB Q3H PRN PRN Reason: MODERATE PAIN Last Admin: 06/03/16 05:59 Dose: 4 mg Nebivolol (Bystolic -) 5 mg PO DAILY [facility] [place] Ondansetron HCl (Zofran Injection) 4 mg IVPB Q6H PRN PRN Reason: NAUSEA Oxycodone HCl (Roxicodone -) 7.5 mg PO Q4H PRN PRN Reason: PAIN Ursodiol (Actigal -) 300 mg PO BID [facility] [place] Last Admin: 06/02/16 22:55 Dose: 300 mg Valsartan (Diovan -) 80 mg PO DAILY [facility] - Objective Vital Signs: Vital Signs Temperature 98.3 F 06/03/16 05:26 Pulse Rate 56 L 06/03/16 05:26 Respiratory Rate 18 06/03/16 05:26 Blood Pressure 127/70 06/03/16 05:26 O2 Sat by Pulse Oximetry (%) 94 L 06/02/16 22:00 Constitutional: Yes: Well Nourished, No Distress, Calm Cardiovascular: Yes: WNL, Regular Rate and Rhythm Musculoskeletal: Yes: WNL Neurological: Yes: WNL, Alert, Oriented ...Motor Strength: WNL Labs: CBC, BMP 06/02/16 18:00 06/02/16 18:00 INR, PTT INR 1.10 (0.82-1.09) 05/29/16 14:17 Assessment/Plan POD#1 s/p Laparoscopic Cholecystectomy under GA. Doing well. A-fib resolved. D/C from anesthesia care.
--- NOTE | 2016-06-03 08:50 | PN ---
Progress Note, Physician - Current Medication List Current Medications: Active Medications Docusate Sodium (Colace -) 100 mg PO Q12H PRN PRN Reason: CONSTIPATION Heparin Sodium (Porcine) (Heparin -) 5,000 unit SQ BID [facility] Last Admin: 06/02/16 22:54 Dose: 5,000 unit Lactated Ringer's (Lactated Ringers Solution) 1,000 mls @ 125 mls/hr IV ASDIR [facility] Meropenem 500 mg/ Dextrose 100 mls @ 200 mls/hr IVPB Q8H-IV [facility] Last Admin: 06/03/16 01:35 Dose: Not Given Dextrose/Sodium Chloride (D5-Ns -) 1,000 mls @ 100 mls/hr IV ASDIR [facility] Pantoprazole Sodium (Protonix 40mg Ivpb (Pre-Docked)) 100 mls @ 200 mls/hr IVPB DAILY [facility] Morphine Sulfate (Morphine Injection -) 4 mg IVPB Q3H PRN PRN Reason: MODERATE PAIN Last Admin: 06/03/16 05:59 Dose: 4 mg Nebivolol (Bystolic -) 5 mg PO DAILY [facility] Ondansetron HCl (Zofran Injection) 4 mg IVPB Q6H PRN PRN Reason: NAUSEA Oxycodone HCl (Roxicodone -) 7.5 mg PO Q4H PRN PRN Reason: PAIN Ursodiol (Actigal -) 300 mg PO BID [facility] Last Admin: 06/02/16 22:55 Dose: 300 mg Valsartan (Diovan -) 80 mg PO DAILY [facility] - Objective Vital Signs: Vital Signs Temperature 98.3 F 06/03/16 05:26 Pulse Rate 56 L 06/03/16 05:26 Respiratory Rate 18 06/03/16 05:26 Blood Pressure 127/70 06/03/16 05:26 O2 Sat by Pulse Oximetry (%) 94 L 06/02/16 22:00 Labs: CBC, BMP 06/02/16 18:00 06/02/16 18:00 INR, PTT INR 1.10 (0.82-1.09) 05/29/16 14:17 Problem List - Problems (1) Gallstone of bile duct with gallbladder inflammation and obstruction Assessment/Plan: IV ABX per id SURGERY AND GI ON BOARD-- MRCP NOTED MONITOR LABS DVT px Operative Date: 03/30/17 Pre-Operative Diagnosis: cholelithiasis, choledocholithiasis, abnormal lfts Operation: laparoscopic cholecystectomy, lavage. pale gb, non inflamed Post-Operative Diagnosis: Same as Pre-op Code(s): K80.41 - CALCULUS OF BILE DUCT W CHOLECYSTITIS, UNSP, W OBSTRUCTION (2) RUQ abdominal pain Code(s): R10.11 - RIGHT UPPER QUADRANT PAIN (3) Chest pain Code(s): R07.9 - CHEST PAIN, UNSPECIFIED Qualifiers: Chest pain type: unspecified Qualified Code(s): R07.9 - Chest pain, unspecified (4) HTN (hypertension) Assessment/Plan: MONITOR BP ON BYSTOLIC Code(s): I10 - ESSENTIAL (PRIMARY) HYPERTENSION (5) Hypotension Code(s): I95.9 - HYPOTENSION, UNSPECIFIED (6) Bacteremia Assessment/Plan: ABX ID F/U--NOTED-- Microbiology 05/30/16 09:33 Blood Culture - Preliminary Blood - Peripheral Venous NO GROWTH OBTAINED AFTER 96 HOURS, INCUBATION TO CONTINUE FOR 1 DAYS. 05/30/16 09:33 Blood Culture - Final Blood - Peripheral Venous Klebsiella Pneumoniae - Esbl Code(s): R78.81 - BACTEREMIA (7) PAF (paroxysmal atrial fibrillation) Assessment/Plan: NO FURTHER RECURRENCE MONITOR Code(s): I48.0 - PAROXYSMAL ATRIAL FIBRILLATION
[2016-06-03] MEDS ORDERED: PT OWN MED DRAWER 7, Y5N ONE (09:12)
--- NOTE | 2016-06-03 09:43 | OP ---
DATE OF OPERATION: 06/02/2016 PREOPERATIVE DIAGNOSIS: Cholelithiasis, abnormal liver function tests, choledocholithiasis. POSTOPERATIVE DIAGNOSIS: Cholelithiasis, abnormal liver function tests, choledocholithiasis. PROCEDURE: Laparoscopic cholecystectomy, lavage. SURGEON: Jose Gonzales DO SURVEILLANCE DIRECTOR: None. ANESTHESIOLOGIST: Augie Boss MD (general) SPECIMEN: Gallbladder. DRAINS: Jesse-Walker drain, hepatic fossa. BLOOD LOSS: Minimal. COMPLICATIONS: None. BRIEF HISTORY: This is a 65-year-old male who presented to [facility] with signs and symptoms of cholangitis. His liver function tests were markedly elevated, and he was noted to have cholelithiasis. His fever was improved, and he had an MRCP, which was negative. He was evaluated by GI service for ERCP , and it was felt that he likely had a passed stone. Despite the fact that his liver function test did not rapidly improve as expected, it was felt that there was no significant stone in the bile duct and that risk of the ERCP would outweigh benefit. At this point, the patient was placed on Ursodiol by the GI service, and recommendation to proceed with cholecystectomy was made. The patient presents now for cholecystectomy assuming a risk of retained stone. DESCRIPTION OF PROCEDURE: The patient was placed in a supine position. General anesthesia was initiated. The abdomen was prepped and draped in sterile fashion. Zosyn antibiotic was given. Next, a transverse incision was made infraumbilical with scalpel used to go through skin and subcutaneous tissue. The fascia was then lifted with Hilario clamp. Veress needle was inserted, and pneumoperitoneum was created. Next, an 11-mm trocar was placed followed by insertion of a 10-mm 0-degree laparoscope. Next, an additional 11-mm trocar was placed subxiphoid, and two 5- mm trocars were placed in the right upper quadrant, 1 in the midclavicular line and 1 anterior axillary line. At this point, attention was turned to the right upper quadrant. The gallbladder was seen. It was pale, nonthickened. There was slight edema to it. The fundus was at the cephalad. The infundibulum retracted laterally. The peritoneal was dissected down exposing a generous cystic duct and cystic artery. The cystic duct was divided with an Endo AFTAB multifire, fast reload stapler. The otoniel were inspected. They were intact. No bleeding, no breaks, no signs of leakage. Next, the cystic artery was clipped and divided. The gallbladder was then liberated from the liver bed, and hemostasis was maintained using electrocautery. At this point, the gallbladder was removed through the infraumbilical trocar site after a significant fascial dilatation and sent to Pathology marked as specimen. A limited lavage was then done. A Jesse-Walker drain was then placed in the gallbladder fossa as prophylaxis against biloma and secured with a silk drain stitch in the lateral trocar site. Next, trocars were removed. No bleeding was seen. Pneumoperitoneum was released. The fascia of the infraumbilical trocar site was then closed with multiple interrupted 0 Vicryl sutures. The 3 remaining skin incisions were closed with subcuticular Biosyn, and Dermabond dressing was placed. DO ANASTACIA LOPEZ/[id number] MTDD
[2016-06-03] MEDS ORDERED: NEBIVOLOL 5 MG TABLET (FP) PO SCH (10:00)
[2016-06-03 10:12] LABS: BASOPHIL 0.1 % (0-2.0); MCH 31.3 pg (25.7-33.7); MCHC 34.1 g/dl (32.0-35.9); MEAN CELL VOLUME 91.9 fl (80-96); MEAN PLT VOLUME 7.8 fl (7.5-11.1); NEUTROPHILS 80.9 % (42.8-82.8); PLATELET COUNT 198 K/MM3 (134-434); RDW 13.6 % (11.9-15.9); WHITE BLOOD COUNT 8.2 K/mm3 (4.0-10.0)
[2016-06-03] MEDS: PANTOPRAZOLE SODIUM 100 ML IVPB SCH (10:55)
[2016-06-03] MEDS: oxyCODONE HCL 5 MG TABLET PO PRN (11:00)
[2016-06-03] MEDS: URSODIOL 300 MG CAPSULE PO SCH ×2 (11:53→22:23)
[2016-06-03] MEDS: VALSARTAN 80 MG TABLET (UD) PO SCH (11:53)
[2016-06-03] MEDS: HEPARIN NA (PORCINE) 5,000 UNITS/ML 1ML VIAL SQ SCH ×2 (11:54→22:23)
--- NOTE | 2016-06-03 11:58 | PN ---
Progress Note, Physician Chief Complaint: Cardiology Episode of AFib during surgical procedure. History of Present Illness: Patient known by me from outpatient evaluation. This is a 65 yo M w significant medical history of HTN, know RBBB, and obesity, on beta-blockers at home, who is in his POD #1 Laparoscopic cholecystectomy under general anesthesia. Per notes, patient had a short episode of Atrial fibrillation with spontaneous conversion to NST. Patient was briefly on CCB ( Cardizem drip) and Metoprolol. Today patient reports mild abdominal pain at the surgical area. No other complaints. Mr. Guerrero denies history of CP, palpitations, dizziness, lightheadedness, syncope or near syncope. Telemetry: NSR with episodes of sinus bradycardia at 50s (baseline HR). - Current Medication List Current Medications: Active Medications Docusate Sodium (Colace -) 100 mg PO Q12H PRN PRN Reason: CONSTIPATION Heparin Sodium (Porcine) (Heparin -) 5,000 unit SQ BID [facility] Last Admin: 06/02/16 22:54 Dose: 5,000 unit Lactated Ringer's (Lactated Ringers Solution) 1,000 mls @ 125 mls/hr IV ASDIR [facility] Meropenem 500 mg/ Dextrose 100 mls @ 200 mls/hr IVPB Q8H-IV [facility] Last Admin: 06/03/16 01:35 Dose: Not Given Dextrose/Sodium Chloride (D5-Ns -) 1,000 mls @ 100 mls/hr IV ASDIR [facility] Pantoprazole Sodium (Protonix 40mg Ivpb (Pre-Docked)) 100 mls @ 200 mls/hr IVPB DAILY [facility] Morphine Sulfate (Morphine Injection -) 4 mg IVPB Q3H PRN PRN Reason: MODERATE PAIN Last Admin: 06/03/16 05:59 Dose: 4 mg Nebivolol (Bystolic -) 5 mg PO DAILY [facility] Ondansetron HCl (Zofran Injection) 4 mg IVPB Q6H PRN PRN Reason: NAUSEA Oxycodone HCl (Roxicodone -) 7.5 mg PO Q4H PRN PRN Reason: PAIN Ursodiol (Actigal -) 300 mg PO BID [facility] Last Admin: 06/02/16 22:55 Dose: 300 mg Valsartan (Diovan -) 80 mg PO DAILY [facility] - Objective Vital Signs: Vital Signs Temperature 98.3 F 06/03/16 05:26 Pulse Rate 56 L 06/03/16 05:26 Respiratory Rate 18 06/03/16 05:26 Blood Pressure 127/70 06/03/16 05:26 O2 Sat by Pulse Oximetry (%) 94 L 06/02/16 22:00 Constitutional: Yes: Well Nourished, No Distress, Calm Eyes: Yes: WNL Neck: Yes: WNL Cardiovascular: Yes: Regular Rate and Rhythm, Bradycardia, S1, S2. No: Bruit, JVD, Murmur, Rub, S3, S4 Respiratory: Yes: WNL, CTA Bilaterally Gastrointestinal: Yes: Soft (Jesse Walker drain. Surgical scars.) Extremities: Yes: WNL Edema: No Labs: CBC, BMP 06/03/16 09:45 06/02/16 18:00 INR, PTT INR 1.10 (0.82-1.09) 05/29/16 14:17 - ....Imaging EKG: Image Reviewed (Sinus bradicardia. RBBB. Nomal axis. No ST-T changes) Other: Other (Echo - 04/2016: Normal LV size and function. No wma. EF: 69%. No significant VHD. Normal RV Stress Echo - 05/2016: Negative for ischemia. Normal wall motion at peak stress.) Assessment/Plan 65 yo M w significant medical history of HTN, know RBBB, and obesity, who is in his POD #1 Laparoscopic cholecystectomy Isolated episode of AFib with RVR during surgical procedure. No tele events. Lone Afib associated to surgical procedure?? Patient is a candidate for systemic AC for primary prevention of stroke if he has any new episode of AFib. Please keep patient on telemetry monitoring while in the hospital. Please get an event monitor once discharge. If negative I would consider a loop recorder. Continue current medications (Please consider reduction of Nebivolol to 2.5 mg d ) Discussed in length with patient and his . Educated regarding symptoms and signs (irregular pulse) of Afib. Close follow-up by PMD and cardiology clinic once discharge. Will follow with you. Thank you
--- NOTE | 2016-06-03 14:43 | PN ---
Progress Note (short form) - Note Progress Note: surgery pt tolerating diet. voiding. ambulating. minimal pain. afebrile Selected Entries 06/03/16 05:26 Temperature 98.3 F Blood Pressure 127/70 Laboratory Tests 06/03/16 09:45 WBC 8.2 D Hgb 13.6 one episode of afib last night, seen by cardiology. resistant bacteria noted in blood. Plan- 1) afib- ok to fully anticoagulate tomorrow if indicated by cardiology, on prophylaxis now. (cardiology not needing at this point) 2) cholangitis/bacteremia- abx per id/medicine/gi 3) elevated lfts- per GI. on ursodiolol. cholecystectomy done to prevent recurrence of choledocholithiasis but still possibility of retained stone. 4) post op care- can d/c home with drain when medically ready. f/u in 1-2 weeks for drain removal and post operative check. ok to shower. ok to drive, no lifting. no narcotics indicated. [phone]
--- NOTE | 2016-06-03 15:10 | PN ---
Progress Note, Physician History of Present Illness: POD #1 cholecystectomy Lab reported + ESBL in blood yesterday, switched to Meropenem Feeling better No c/o abdominal pain No fever/ chills - Current Medication List Current Medications: Active Medications Docusate Sodium (Colace -) 100 mg PO Q12H PRN PRN Reason: CONSTIPATION Heparin Sodium (Porcine) (Heparin -) 5,000 unit SQ BID [facility] Last Admin: 06/03/16 11:54 Dose: 5,000 unit Meropenem 500 mg/ Dextrose 100 mls @ 200 mls/hr IVPB Q8H-IV [facility] Last Admin: 06/03/16 10:54 Dose: 200 mls/hr Pantoprazole Sodium (Protonix 40mg Ivpb (Pre-Docked)) 100 mls @ 200 mls/hr IVPB DAILY [facility] Last Admin: 06/03/16 10:55 Dose: 200 mls/hr Morphine Sulfate (Morphine Injection -) 4 mg IVPB Q3H PRN PRN Reason: MODERATE PAIN Last Admin: 06/03/16 05:59 Dose: 4 mg Nebivolol (Bystolic -) 2.5 mg PO DAILY [facility] Ondansetron HCl (Zofran Injection) 4 mg IVPB Q6H PRN PRN Reason: NAUSEA Oxycodone HCl (Roxicodone -) 7.5 mg PO Q4H PRN PRN Reason: PAIN Ursodiol (Actigal -) 300 mg PO BID [facility] Last Admin: 06/03/16 11:53 Dose: Not Given Valsartan (Diovan -) 80 mg PO DAILY [facility] Last Admin: 06/03/16 11:53 Dose: 80 mg - Objective Vital Signs: Vital Signs Temperature 98.8 F 06/03/16 14:43 Pulse Rate 51 L 06/03/16 14:43 Respiratory Rate 18 06/03/16 14:43 Blood Pressure 137/69 06/03/16 14:43 O2 Sat by Pulse Oximetry (%) 94 L 06/02/16 22:00 Constitutional: Yes: No Distress Eyes: Yes: Conjunctiva Clear Cardiovascular: Yes: Regular Rate and Rhythm, S1, S2 Respiratory: Yes: CTA Bilaterally Gastrointestinal: Yes: Normal Bowel Sounds, Soft, Other (LLOYD drain in place- bloody fluid in drain). No: Tenderness Edema: No Labs: CBC, BMP 06/03/16 09:45 06/02/16 18:00 INR, PTT INR 1.10 (0.82-1.09) 05/29/16 14:17 Assessment/Plan Probable acute cholecystitis Gram Negative bacteremia/ Biliary sepsis- ESBL Continue Meropenem, day #2
[2016-06-04] MEDS ORDERED: PT OWN MED DRAWER 7, Y5N ONE ×3 (01:26→18:28)
[2016-06-04] MEDS: MEROPENEM 500 MG in DEXTROSE 5%-WATER - 100 ML IVPB SCH ×3 (01:28→18:29)
[2016-06-04] MEDS: oxyCODONE HCL 5 MG TABLET PO PRN ×2 (01:55→16:22)
[2016-06-04 09:23] LABS: BASOPHIL 0.4 % (0-2.0); EOSINOPHIL 2.3 % (0-4.5); MCH 31.4 pg (25.7-33.7); MCHC 34.2 g/dl (32.0-35.9); MEAN CELL VOLUME 91.9 fl (80-96); MEAN PLT VOLUME 8.3 fl (7.5-11.1); NEUTROPHILS 67.9 % (42.8-82.8); PLATELET COUNT 202 K/MM3 (134-434); RDW 13.7 % (11.9-15.9); WHITE BLOOD COUNT 7.5 K/mm3 (4.0-10.0)
[2016-06-04 09:35] LABS: ALBUMIN 2.8 g/dl (3.4-5.0); ANION GAP 9 (8-16); CALCIUM 8.5 mg/dL (8.5-10.1); CO2 28 mmol/L (21-32); GLUCOSE,RANDOM 88 mg/dL (74-106)
[2016-06-04 09:43] LABS: ALK PHOS 187 U/L (45-117); BILIRUBIN,TOTAL 2.2 mg/dL (0.2-1.0); CREATININE 0.8 mg/dL (0.7-1.3); SGOT/AST 32 U/L (15-37); SGPT/ALT 83 U/L (12-78); TOT PROT 6.2 g/dl (6.4-8.2)
[2016-06-04] MEDS: PANTOPRAZOLE SODIUM 100 ML IVPB SCH (10:19)
[2016-06-04] MEDS: VALSARTAN 80 MG TABLET (UD) PO SCH (10:19)
[2016-06-04] MEDS: URSODIOL 300 MG CAPSULE PO SCH ×2 (10:19→21:56)
[2016-06-04] MEDS: HEPARIN NA (PORCINE) 5,000 UNITS/ML 1ML VIAL SQ SCH ×2 (10:20→21:56)
[2016-06-04] MEDS: NEBIVOLOL 2.5 MG TABLET (FP) PO SCH (10:20)
[2016-06-04] MEDS: DOCUSATE SODIUM 100 MG CAPSULE (FP) PO PRN (10:30)
--- NOTE | 2016-06-04 10:33 | PN ---
Progress Note, Physician History of Present Illness: Currently denies any abdominal pain, chest pain, palpitations, or dyspnea. - Current Medication List Current Medications: Active Medications Docusate Sodium (Colace -) 100 mg PO Q12H PRN PRN Reason: CONSTIPATION Heparin Sodium (Porcine) (Heparin -) 5,000 unit SQ BID [facility] Last Admin: 06/03/16 22:23 Dose: 5,000 unit Meropenem 500 mg/ Dextrose 100 mls @ 200 mls/hr IVPB Q8H-IV [facility] Last Admin: 06/04/16 01:28 Dose: 200 mls/hr Pantoprazole Sodium (Protonix 40mg Ivpb (Pre-Docked)) 100 mls @ 200 mls/hr IVPB DAILY [facility] Last Admin: 06/03/16 10:55 Dose: 200 mls/hr Morphine Sulfate (Morphine Injection -) 4 mg IVPB Q3H PRN PRN Reason: MODERATE PAIN Last Admin: 06/03/16 05:59 Dose: 4 mg Nebivolol (Bystolic -) 2.5 mg PO DAILY [facility] Ondansetron HCl (Zofran Injection) 4 mg IVPB Q6H PRN PRN Reason: NAUSEA Oxycodone HCl (Roxicodone -) 7.5 mg PO Q4H PRN PRN Reason: PAIN Last Admin: 06/04/16 01:55 Dose: 7.5 mg Ursodiol (Actigal -) 300 mg PO BID [facility] Last Admin: 06/03/16 22:23 Dose: 300 mg Valsartan (Diovan -) 80 mg PO DAILY [facility] Last Admin: 06/03/16 11:53 Dose: 80 mg - Objective Vital Signs: Vital Signs Temperature 98.6 F 06/04/16 06:40 Pulse Rate 56 L 06/04/16 06:40 Respiratory Rate 18 06/04/16 09:00 Blood Pressure 161/89 06/04/16 06:40 O2 Sat by Pulse Oximetry (%) 97 06/04/16 09:00 Constitutional: Yes: Well Nourished, No Distress Eyes: Yes: Conjunctiva Clear, EOM Intact HENT: Yes: Atraumatic, Normocephalic Cardiovascular: Yes: Regular Rate and Rhythm, Bradycardia. No: JVD, Murmur Respiratory: Yes: CTA Bilaterally Gastrointestinal: Yes: Normal Bowel Sounds, Soft. No: Tenderness Edema: No Neurological: Yes: Alert, Oriented, Cran Nerves II-XII Intact Psychiatric: Yes: WNL Labs: CBC, BMP 06/04/16 06:07 06/04/16 06:07 INR, PTT INR 1.10 (0.82-1.09) 05/29/16 14:17 Assessment/Plan 65 yo male with HTN, known RBBB, s/p POD #2 laparoscopic cholecystectomy. Isolated episode of AFib with RVR during surgical procedure. No recurrence of afib per telemetry. Lone Afib associated to surgical procedure?? Patient is a candidate for systemic AC for primary prevention of stroke if he has any further episodes of AFib. RECS: Continue to monitor on telemetry. No anticoagulation at this time unless he has recurrence of AFib Upon discharge, patient will need event monitor for further evaluation and follow-up with Dr. Roque Rangel. Continue nebivolol 2.5 mg po daily Will follow. Call with quetsions.
--- NOTE | 2016-06-04 11:12 | PN ---
Progress Note, Physician History of Present Illness: NO PAIN THIS AM - Current Medication List Current Medications: Active Medications Docusate Sodium (Colace -) 100 mg PO Q12H PRN PRN Reason: CONSTIPATION Last Admin: 06/04/16 10:30 Dose: 100 mg Heparin Sodium (Porcine) (Heparin -) 5,000 unit SQ BID [facility] Last Admin: 06/04/16 10:20 Dose: 5,000 unit Meropenem 500 mg/ Dextrose 100 mls @ 200 mls/hr IVPB Q8H-IV [facility] Last Admin: 06/04/16 10:20 Dose: 200 mls/hr Pantoprazole Sodium (Protonix 40mg Ivpb (Pre-Docked)) 100 mls @ 200 mls/hr IVPB DAILY [facility] Last Admin: 06/04/16 10:19 Dose: 200 mls/hr Morphine Sulfate (Morphine Injection -) 4 mg IVPB Q3H PRN PRN Reason: MODERATE PAIN Last Admin: 06/03/16 05:59 Dose: 4 mg Nebivolol (Bystolic -) 2.5 mg PO DAILY [facility] Last Admin: 06/04/16 10:20 Dose: 2.5 mg Ondansetron HCl (Zofran Injection) 4 mg IVPB Q6H PRN PRN Reason: NAUSEA Oxycodone HCl (Roxicodone -) 7.5 mg PO Q4H PRN PRN Reason: PAIN Last Admin: 06/04/16 01:55 Dose: 7.5 mg Ursodiol (Actigal -) 300 mg PO BID [facility] Last Admin: 06/04/16 10:19 Dose: 300 mg Valsartan (Diovan -) 80 mg PO DAILY [facility] Last Admin: 06/04/16 10:19 Dose: 80 mg - Objective Vital Signs: Vital Signs Temperature 98.6 F 06/04/16 06:40 Pulse Rate 56 L 06/04/16 06:40 Respiratory Rate 18 06/04/16 09:00 Blood Pressure 161/89 06/04/16 06:40 O2 Sat by Pulse Oximetry (%) 97 06/04/16 09:00 Cardiovascular: Yes: Regular Rate and Rhythm Respiratory: Yes: Regular, CTA Bilaterally Gastrointestinal: Yes: Normal Bowel Sounds, Soft Labs: CBC, BMP 06/04/16 06:07 06/04/16 06:07 INR, PTT INR 1.10 (0.82-1.09) 05/29/16 14:17 Problem List - Problems (1) Gallstone of bile duct with gallbladder inflammation and obstruction Assessment/Plan: IV ABX per id SURGERY AND GI ON BOARD-- MRCP NOTED MONITOR LABS DVT px Operative Date: 06/02/16 Pre-Operative Diagnosis: cholelithiasis, choledocholithiasis, abnormal lfts Operation: laparoscopic cholecystectomy, lavage. pale gb, non inflamed Post-Operative Diagnosis: Same as Pre-op Code(s): K80.41 - CALCULUS OF BILE DUCT W CHOLECYSTITIS, UNSP, W OBSTRUCTION (2) RUQ abdominal pain Code(s): R10.11 - RIGHT UPPER QUADRANT PAIN (3) Chest pain Assessment/Plan: RESOLVED--PROBABLY RELATED TO GB Code(s): R07.9 - CHEST PAIN, UNSPECIFIED Qualifiers: Chest pain type: unspecified Qualified Code(s): R07.9 - Chest pain, unspecified (4) HTN (hypertension) Assessment/Plan: MONITOR BP ON BYSTOLIC Code(s): I10 - ESSENTIAL (PRIMARY) HYPERTENSION (5) Hypotension Code(s): I95.9 - HYPOTENSION, UNSPECIFIED (6) Bacteremia Assessment/Plan: ABX ID F/U--NOTED-- Microbiology 05/30/16 09:33 Blood Culture - Preliminary Blood - Peripheral Venous NO GROWTH OBTAINED AFTER 96 HOURS, INCUBATION TO CONTINUE FOR 1 DAYS. 05/30/16 09:33 Blood Culture - Final Blood - Peripheral Venous Klebsiella Pneumoniae - Esbl Code(s): R78.81 - BACTEREMIA (7) PAF (paroxysmal atrial fibrillation) Assessment/Plan: NO FURTHER RECURRENCE MONITOR Code(s): I48.0 - PAROXYSMAL ATRIAL FIBRILLATION
--- NOTE | 2016-06-04 14:27 | PN ---
Progress Note (short form) - Note Progress Note: No acute events overnight. No CP or SOB. Intake & Output 06/01/16 06/02/16 06/03/16 06/04/16 23:59 23:59 23:59 23:59 Intake Total 1975 3600 1840 200 Output Total 750 2150 1335 Balance 1225 1450 505 200 Weight 187 lb 2 oz 183 lb 4.8 oz 179 lb 3.2 oz Last Vital Signs Temp Pulse Resp BP Pulse Ox 98.6 F 56 L 18 161/89 97 06/04/16 06:40 06/04/16 06:40 06/04/16 09:00 06/04/16 06:40 06/04/16 09:00 Active Medications Docusate Sodium (Colace -) 100 mg PO Q12H PRN PRN Reason: CONSTIPATION Last Admin: 06/04/16 10:30 Dose: 100 mg Heparin Sodium (Porcine) (Heparin -) 5,000 unit SQ BID [facility] Last Admin: 06/04/16 10:20 Dose: 5,000 unit Meropenem 500 mg/ Dextrose 100 mls @ 200 mls/hr IVPB Q8H-IV [facility] Last Admin: 06/04/16 10:20 Dose: 200 mls/hr Pantoprazole Sodium (Protonix 40mg Ivpb (Pre-Docked)) 100 mls @ 200 mls/hr IVPB DAILY [facility] Last Admin: 06/04/16 10:19 Dose: 200 mls/hr Morphine Sulfate (Morphine Injection -) 4 mg IVPB Q3H PRN PRN Reason: MODERATE PAIN Last Admin: 06/03/16 05:59 Dose: 4 mg Nebivolol (Bystolic -) 2.5 mg PO DAILY [facility] Last Admin: 06/04/16 10:20 Dose: 2.5 mg Ondansetron HCl (Zofran Injection) 4 mg IVPB Q6H PRN PRN Reason: NAUSEA Oxycodone HCl (Roxicodone -) 7.5 mg PO Q4H PRN PRN Reason: PAIN Last Admin: 06/04/16 01:55 Dose: 7.5 mg Ursodiol (Actigal -) 300 mg PO BID [facility] Last Admin: 06/04/16 10:19 Dose: 300 mg Valsartan (Diovan -) 80 mg PO DAILY [facility] Last Admin: 06/04/16 10:19 Dose: 80 mg Gen: NAD at rest Heart: RRR Lung: decreased breath sounds at the bases Abd: soft, nontender Ext: no edema Laboratory Results - last 24 hr 06/04/16 06/04/16 06:07 06:07 WBC 7.5 RBC 4.47 Hgb 14.0 Hct 41.0 MCV 91.9 MCHC 34.2 RDW 13.7 Plt Count 202 MPV 8.3 Neutrophils % 67.9 Lymphocytes % 19.3 D Monocytes % 10.1 Eosinophils % 2.3 D Basophils % 0.4 D Sodium 139 Potassium 3.8 Chloride 102 Carbon Dioxide 28 D Anion Gap 9 BUN 10 D Creatinine 0.8 Creat Clearance w eGFR > 60 Random Glucose 88 D Calcium 8.5 Total Bilirubin 2.2 H D AST 32 D ALT 83 H D Alkaline Phosphatase 187 H Total Protein 6.2 L Albumin 2.8 L ASSESSMENT AND PLAN: Acute Cholangitis Gram Negative Bacteremia Elevated LFTs from above HTN - ABX per ID - PO as tolerated - DVT prophylaxis - O2 as needed Dr Aj
--- NOTE | 2016-06-04 14:56 | PN ---
GI Progress Note Subjective: Patient ambulating, no pain, tolerating regular diet - Objective Vital Signs: Vital Signs Temperature 98.4 F 06/04/16 14:43 Pulse Rate 62 06/04/16 14:43 Respiratory Rate 20 06/04/16 14:43 Blood Pressure 139/88 06/04/16 14:43 O2 Sat by Pulse Oximetry (%) 97 06/04/16 09:00 Constitutional: Well Nourished HENT: Yes: Normocephalic Cardiovascular: Yes: Regular Rate and Rhythm Respiratory: Yes: CTA Bilaterally Gastrointestinal Inspection: Yes: WNL ...Auscultate: Yes: Normoactive Bowel Sounds ...Palpate: Yes: Soft, Tenderness (expected, at site of surgery) Labs: CBC, BMP 06/04/16 06:07 06/04/16 06:07 INR, PTT INR 1.10 (0.82-1.09) 05/29/16 14:17 Assessment/Plan Patient with likely passed gallstone, feeling better at this time. MRCP negative for choledocholithiasis. Repeat BW shows significant downward trend of LFT's with t bili of 4.6 to 2.2 Continue regular diet Management per surgery Will see as opt
[2016-06-05] MEDS ORDERED: PT OWN MED DRAWER 7, Y5N ONE ×2 (00:55→17:51)
[2016-06-05] MEDS: MEROPENEM 500 MG in DEXTROSE 5%-WATER - 100 ML IVPB SCH ×3 (01:01→17:55)
[2016-06-05] MEDS: HEPARIN NA (PORCINE) 5,000 UNITS/ML 1ML VIAL SQ SCH ×2 (09:36→21:56)
[2016-06-05] MEDS: VALSARTAN 80 MG TABLET (UD) PO SCH (09:36)
[2016-06-05] MEDS: PANTOPRAZOLE SODIUM 100 ML IVPB SCH (09:36)
[2016-06-05] MEDS: NEBIVOLOL 2.5 MG TABLET (FP) PO SCH (09:36)
--- NOTE | 2016-06-05 10:10 | PN ---
Progress Note, Physician History of Present Illness: Currently denies any abdominal pain, chest pain, palpitations, or dyspnea. - Current Medication List Current Medications: Active Medications Docusate Sodium (Colace -) 100 mg PO Q12H PRN PRN Reason: CONSTIPATION Last Admin: 06/04/16 10:30 Dose: 100 mg Heparin Sodium (Porcine) (Heparin -) 5,000 unit SQ BID [facility] Last Admin: 06/05/16 09:36 Dose: 5,000 unit Meropenem 500 mg/ Dextrose 100 mls @ 200 mls/hr IVPB Q8H-IV [facility] Last Admin: 06/05/16 09:00 Dose: 200 mls/hr Pantoprazole Sodium (Protonix 40mg Ivpb (Pre-Docked)) 100 mls @ 200 mls/hr IVPB DAILY [facility] Last Admin: 06/05/16 09:36 Dose: 200 mls/hr Morphine Sulfate (Morphine Injection -) 4 mg IVPB Q3H PRN PRN Reason: MODERATE PAIN Last Admin: 06/03/16 05:59 Dose: 4 mg Nebivolol (Bystolic -) 2.5 mg PO DAILY [facility] Last Admin: 06/05/16 09:36 Dose: 2.5 mg Ondansetron HCl (Zofran Injection) 4 mg IVPB Q6H PRN PRN Reason: NAUSEA Oxycodone HCl (Roxicodone -) 7.5 mg PO Q4H PRN PRN Reason: PAIN Last Admin: 06/04/16 16:22 Dose: 7.5 mg Ursodiol (Actigal -) 300 mg PO BID [facility] Last Admin: 06/04/16 21:56 Dose: 300 mg Valsartan (Diovan -) 80 mg PO DAILY [facility] Last Admin: 06/05/16 09:36 Dose: 80 mg - Objective Vital Signs: Vital Signs Temperature 97.9 F 06/05/16 09:30 Pulse Rate 65 06/05/16 09:30 Respiratory Rate 18 06/05/16 09:30 Blood Pressure 127/84 06/05/16 09:30 O2 Sat by Pulse Oximetry (%) 96 06/05/16 08:25 Constitutional: Yes: Well Nourished, No Distress Eyes: Yes: Conjunctiva Clear, EOM Intact HENT: Yes: Atraumatic, Normocephalic Cardiovascular: Yes: Regular Rate and Rhythm. No: JVD, Murmur Respiratory: Yes: CTA Bilaterally Gastrointestinal: Yes: Normal Bowel Sounds, Soft Edema: No Neurological: Yes: Alert, Oriented, Cran Nerves II-XII Intact Labs: CBC, BMP 06/04/16 06:07 06/04/16 06:07 INR, PTT INR 1.10 (0.82-1.09) 05/29/16 14:17 Assessment/Plan 65 yo male with HTN, known RBBB, s/p POD #2 laparoscopic cholecystectomy. Isolated episode of AFib with RVR during surgical procedure. No recurrence of afib per telemetry. Lone Afib associated to surgical procedure?? Patient is a candidate for systemic AC for primary prevention of stroke if he has any further episodes of AFib. RECS: May discontinue telemetry. No anticoagulation at this time unless he has recurrence of AFib in the future. Patient may be discharged from cardiac standpoint. Upon discharge, patient will need event monitor for further evaluation and follow-up with Dr. Roque Rangel. Continue nebivolol 2.5 mg po daily. Will see prn. Please call with questions.
--- NOTE | 2016-06-05 11:15 | PN ---
Progress Note, Physician History of Present Illness: NO PAIN THIS AM - Current Medication List Current Medications: Active Medications Docusate Sodium (Colace -) 100 mg PO Q12H PRN PRN Reason: CONSTIPATION Last Admin: 06/04/16 10:30 Dose: 100 mg Heparin Sodium (Porcine) (Heparin -) 5,000 unit SQ BID [facility] Last Admin: 06/05/16 09:36 Dose: 5,000 unit Meropenem 500 mg/ Dextrose 100 mls @ 200 mls/hr IVPB Q8H-IV [facility] Last Admin: 06/05/16 09:00 Dose: 200 mls/hr Pantoprazole Sodium (Protonix 40mg Ivpb (Pre-Docked)) 100 mls @ 200 mls/hr IVPB DAILY [facility] Last Admin: 06/05/16 09:36 Dose: 200 mls/hr Morphine Sulfate (Morphine Injection -) 4 mg IVPB Q3H PRN PRN Reason: MODERATE PAIN Last Admin: 06/03/16 05:59 Dose: 4 mg Nebivolol (Bystolic -) 2.5 mg PO DAILY [facility] Last Admin: 06/05/16 09:36 Dose: 2.5 mg Ondansetron HCl (Zofran Injection) 4 mg IVPB Q6H PRN PRN Reason: NAUSEA Oxycodone HCl (Roxicodone -) 7.5 mg PO Q4H PRN PRN Reason: PAIN Last Admin: 06/04/16 16:22 Dose: 7.5 mg Ursodiol (Actigal -) 300 mg PO BID [facility] Last Admin: 06/04/16 21:56 Dose: 300 mg Valsartan (Diovan -) 80 mg PO DAILY [facility] Last Admin: 06/05/16 09:36 Dose: 80 mg - Objective Vital Signs: Vital Signs Temperature 97.9 F 06/05/16 09:30 Pulse Rate 65 06/05/16 09:30 Respiratory Rate 18 06/05/16 09:30 Blood Pressure 127/84 06/05/16 09:30 O2 Sat by Pulse Oximetry (%) 96 06/05/16 08:25 Cardiovascular: Yes: Regular Rate and Rhythm Respiratory: Yes: Regular, CTA Bilaterally Gastrointestinal: Yes: Normal Bowel Sounds, Soft, Tenderness (LESS) Labs: CBC, BMP 06/04/16 06:07 06/04/16 06:07 INR, PTT INR 1.10 (0.82-1.09) 05/29/16 14:17 Problem List - Problems (1) Gallstone of bile duct with gallbladder inflammation and obstruction Assessment/Plan: IV ABX per id SURGERY AND GI ON BOARD-- MRCP NOTED MONITOR LABS DVT px Operative Date: 06/02/16 Pre-Operative Diagnosis: cholelithiasis, choledocholithiasis, abnormal lfts Operation: laparoscopic cholecystectomy, lavage. pale gb, non inflamed Post-Operative Diagnosis: Same as Pre-op Code(s): K80.41 - CALCULUS OF BILE DUCT W CHOLECYSTITIS, UNSP, W OBSTRUCTION (2) RUQ abdominal pain Assessment/Plan: ABOVE Code(s): R10.11 - RIGHT UPPER QUADRANT PAIN (3) Chest pain Assessment/Plan: RESOLVED--PROBABLY RELATED TO GB Code(s): R07.9 - CHEST PAIN, UNSPECIFIED Qualifiers: Chest pain type: unspecified Qualified Code(s): R07.9 - Chest pain, unspecified (4) HTN (hypertension) Assessment/Plan: MONITOR BP ON BYSTOLIC Code(s): I10 - ESSENTIAL (PRIMARY) HYPERTENSION (5) Hypotension Code(s): I95.9 - HYPOTENSION, UNSPECIFIED (6) Bacteremia Assessment/Plan: ABX ID F/U--NOTED-- Microbiology 05/30/16 09:33 Blood Culture - Preliminary Blood - Peripheral Venous NO GROWTH OBTAINED AFTER 96 HOURS, INCUBATION TO CONTINUE FOR 1 DAYS. 05/30/16 09:33 Blood Culture - Final Blood - Peripheral Venous Klebsiella Pneumoniae - Esbl Code(s): R78.81 - BACTEREMIA (7) PAF (paroxysmal atrial fibrillation) Assessment/Plan: NO FURTHER RECURRENCE MONITOR Code(s): I48.0 - PAROXYSMAL ATRIAL FIBRILLATION
[2016-06-05] MEDS: URSODIOL 300 MG CAPSULE PO SCH ×2 (12:30→21:55)
--- NOTE | 2016-06-05 13:18 | PN ---
Progress Note (short form) - Note Progress Note: No acute events overnight. No abdominal pain. No CP or SOB. Intake & Output 06/02/16 06/03/16 06/04/16 06/05/16 23:59 23:59 23:59 23:59 Intake Total 3600 1840 810 110 Output Total 2150 1335 15 8 Balance 1450 505 795 102 Weight 183 lb 4.8 oz 179 lb 3.2 oz 176 lb 9.6 oz Last Vital Signs Temp Pulse Resp BP Pulse Ox 97.9 F 65 18 127/84 96 06/05/16 09:30 06/05/16 09:30 06/05/16 09:30 06/05/16 09:30 06/05/16 08:25 Active Medications Docusate Sodium (Colace -) 100 mg PO Q12H PRN PRN Reason: CONSTIPATION Last Admin: 06/04/16 10:30 Dose: 100 mg Heparin Sodium (Porcine) (Heparin -) 5,000 unit SQ BID [facility] Last Admin: 06/05/16 09:36 Dose: 5,000 unit Meropenem 500 mg/ Dextrose 100 mls @ 200 mls/hr IVPB Q8H-IV [facility] Last Admin: 06/05/16 09:00 Dose: 200 mls/hr Pantoprazole Sodium (Protonix 40mg Ivpb (Pre-Docked)) 100 mls @ 200 mls/hr IVPB DAILY [facility] Last Admin: 06/05/16 09:36 Dose: 200 mls/hr Morphine Sulfate (Morphine Injection -) 4 mg IVPB Q3H PRN PRN Reason: MODERATE PAIN Last Admin: 06/03/16 05:59 Dose: 4 mg Nebivolol (Bystolic -) 5 mg PO DAILY [facility] Ondansetron HCl (Zofran Injection) 4 mg IVPB Q6H PRN PRN Reason: NAUSEA Oxycodone HCl (Roxicodone -) 7.5 mg PO Q4H PRN PRN Reason: PAIN Last Admin: 06/04/16 16:22 Dose: 7.5 mg Ursodiol (Actigal -) 300 mg PO BID [facility] Last Admin: 06/04/16 21:56 Dose: 300 mg Valsartan (Diovan -) 80 mg PO DAILY [facility] Last Admin: 06/05/16 09:36 Dose: 80 mg Gen: NAD at rest Heart: RRR Lung: decreased breath sounds at the bases Abd: soft, nontender Ext: no edema ASSESSMENT AND PLAN: Acute Cholangitis Gram Negative Bacteremia Elevated LFTs from above HTN - ABX per ID - PO as tolerated - DVT prophylaxis - O2 as needed - Ambulate - Actigall Dr Aj
[2016-06-06] MEDS: MEROPENEM 500 MG in DEXTROSE 5%-WATER - 100 ML IVPB SCH (01:25)
[2016-06-06] MEDS ORDERED: PT OWN MED DRAWER 7, Y5N ONE (07:43)
--- NOTE | 2016-06-06 08:16 | PN ---
Progress Note, Physician History of Present Illness: NO PAIN THIS AM - Current Medication List Current Medications: Active Medications Docusate Sodium (Colace -) 100 mg PO Q12H PRN PRN Reason: CONSTIPATION Last Admin: 06/04/16 10:30 Dose: 100 mg Heparin Sodium (Porcine) (Heparin -) 5,000 unit SQ BID [facility] Last Admin: 06/05/16 21:56 Dose: 5,000 unit Meropenem 500 mg/ Dextrose 100 mls @ 200 mls/hr IVPB Q8H-IV [facility] Last Admin: 06/06/16 01:25 Dose: 200 mls/hr Pantoprazole Sodium (Protonix 40mg Ivpb (Pre-Docked)) 100 mls @ 200 mls/hr IVPB DAILY [facility] Last Admin: 06/05/16 09:36 Dose: 200 mls/hr Nebivolol (Bystolic -) 5 mg PO DAILY [facility] Ondansetron HCl (Zofran Injection) 4 mg IVPB Q6H PRN PRN Reason: NAUSEA Ursodiol (Actigal -) 300 mg PO BID [facility] Last Admin: 06/05/16 21:55 Dose: 300 mg Valsartan (Diovan -) 80 mg PO DAILY [facility] Last Admin: 06/05/16 09:36 Dose: 80 mg - Objective Vital Signs: Vital Signs Temperature 98.1 F 06/06/16 06:00 Pulse Rate 61 06/06/16 06:00 Respiratory Rate 18 06/06/16 06:00 Blood Pressure 139/80 06/06/16 06:00 O2 Sat by Pulse Oximetry (%) 98 06/06/16 06:00 Cardiovascular: Yes: Regular Rate and Rhythm Respiratory: Yes: Regular, CTA Bilaterally Gastrointestinal: Yes: Normal Bowel Sounds, Soft, Tenderness (LESS) Labs: INR, PTT INR 1.10 (0.82-1.09) 05/29/16 14:17 Problem List - Problems (1) Gallstone of bile duct with gallbladder inflammation and obstruction Assessment/Plan: IV ABX per id SURGERY AND GI ON BOARD-- MRCP NOTED MONITOR LABS DVT px Operative Date: 06/02/16 Pre-Operative Diagnosis: cholelithiasis, choledocholithiasis, abnormal lfts Operation: laparoscopic cholecystectomy, lavage. pale gb, non inflamed Post-Operative Diagnosis: Same as Pre-op Code(s): K80.41 - CALCULUS OF BILE DUCT W CHOLECYSTITIS, UNSP, W OBSTRUCTION (2) RUQ abdominal pain Code(s): R10.11 - RIGHT UPPER QUADRANT PAIN (3) Chest pain Code(s): R07.9 - CHEST PAIN, UNSPECIFIED Qualifiers: Chest pain type: unspecified Qualified Code(s): R07.9 - Chest pain, unspecified (4) HTN (hypertension) Assessment/Plan: MONITOR BP ON BYSTOLIC Code(s): I10 - ESSENTIAL (PRIMARY) HYPERTENSION (5) Bacteremia Assessment/Plan: ABX ID F/U-DURATION OF ABX?? Microbiology 05/30/16 09:33 Blood Culture - Preliminary Blood - Peripheral Venous NO GROWTH OBTAINED AFTER 96 HOURS, INCUBATION TO CONTINUE FOR 1 DAYS. 05/30/16 09:33 Blood Culture - Final Blood - Peripheral Venous Klebsiella Pneumoniae - Esbl Code(s): R78.81 - BACTEREMIA (6) PAF (paroxysmal atrial fibrillation) Assessment/Plan: NO FURTHER RECURRENCE MONITOR Code(s): I48.0 - PAROXYSMAL ATRIAL FIBRILLATION
[2016-06-06 08:34] LABS: ALBUMIN 2.9 g/dl (3.4-5.0); ANION GAP 10 (8-16); BILIRUBIN,TOTAL 1.6 mg/dL (0.2-1.0); CALCIUM 8.7 mg/dL (8.5-10.1); CO2 27 mmol/L (21-32); CREATININE 0.8 mg/dL (0.7-1.3); GLUCOSE,RANDOM 96 mg/dL (74-106); SGOT/AST 30 U/L (15-37); SGPT/ALT 79 U/L (12-78); TOT PROT 6.7 g/dl (6.4-8.2)
[2016-06-06 08:35] LABS: ALK PHOS 207 U/L (45-117); BASOPHIL 0.5 % (0-2.0); EOSINOPHIL 6.9 % (0-4.5); MCH 31.1 pg (25.7-33.7); MCHC 33.9 g/dl (32.0-35.9); MEAN CELL VOLUME 91.7 fl (80-96); MEAN PLT VOLUME 7.7 fl (7.5-11.1); NEUTROPHILS 62.3 % (42.8-82.8); PLATELET COUNT 262 K/MM3 (134-434); RDW 13.6 % (11.9-15.9); WHITE BLOOD COUNT 7.7 K/mm3 (4.0-10.0)
[2016-06-06] MEDS: URSODIOL 300 MG CAPSULE PO SCH ×2 (09:32→21:52)
[2016-06-06] MEDS: HEPARIN NA (PORCINE) 5,000 UNITS/ML 1ML VIAL SQ SCH ×2 (09:32→21:52)
[2016-06-06] MEDS: VALSARTAN 80 MG TABLET (UD) PO SCH (09:32)
[2016-06-06] MEDS: PANTOPRAZOLE SODIUM 100 ML IVPB SCH (09:32)
[2016-06-06] MEDS: DOCUSATE SODIUM 100 MG CAPSULE (FP) PO PRN (09:33)
[2016-06-06] MEDS: NEBIVOLOL 5 MG TABLET (FP) PO SCH (10:10)
[2016-06-06] MEDS ORDERED: PICC LINE 8 ML FLUSH PROTOCOL IVPUSH PRN (10:39)
--- NOTE | 2016-06-06 10:46 | PATH ---
Surgical Pathology Report Patient Name: MUSA DE SOUZA Med. Rec. #: [id number] /Age/Gender: 1950 (Age: 65) / M Account: [id number] Location: 4 W TELEMETRY U Taken: 06/02/2016 Received: 06/03/2016 Reported: 06/06/2016 Physicians: Jose Gonzales M.D. Specimen(s) Received GALLBLADDER Clinical History Cholelithiasis Final Diagnosis GALLBLADDER, CHOLECYSTECTOMY: CHRONIC CHOLECYSTITIS, CHOLESTEROLOSIS, AND CHOLELITHIASIS. Electronically Signed Cirilo Ratliff M.D. Gross Description Received in formalin, labeled "gallbladder," is a 7.0 x 2.5 x 2.5 cm. gallbladder with a 0.2 cm. in length portion of cystic duct attached. The outer surface is villarreal-pink and varies from smooth to shaggy. The lumen contains yellow, tenacious bile as well as multiple black, irregular to fragmented choleliths ranging from 0.1-0.5 cm in greatest dimension. The mucosa is villarreal and focally eroded. The wall of the gallbladder ranges from 0.1-0.3 cm. in thickness. Film Librarian sections are submitted in one cassette. 06/03/201606/03/2016
--- NOTE | 2016-06-06 14:33 | PN ---
Progress Note (short form) - Note Progress Note: Surgery- pt off floor getting picc line. plans for d/c. lfts cont to improve. will d/ c home with drain. see previous discharge instructions below from Monday. 4) post op care- can d/c home with drain when medically ready. f/u in 1-2 weeks for drain removal and post operative check. ok to shower. ok to drive, no lifting. no narcotics indicated. [phone]
[2016-06-06] MEDS: ERTAPENEM SODIUM 1 GM in SODIUM CHLORIDE 50 ML IVPB SCH (15:10)
--- NOTE | 2016-06-06 18:17 | PN ---
Progress Note, Physician History of Present Illness: Doing well No c/o abdominal pain No fever/ chills Tolerating diet + BMs PICC in place - Current Medication List Current Medications: Active Medications Docusate Sodium (Colace -) 100 mg PO Q12H PRN PRN Reason: CONSTIPATION Last Admin: 06/06/16 09:33 Dose: 100 mg Heparin Sodium (Porcine) (Heparin -) 5,000 unit SQ BID [facility] Last Admin: 06/06/16 09:32 Dose: 5,000 unit IV Flush (Picc Line Flush) 8 ml IVPUSH PRN PRN PRN Reason: Protocol Pantoprazole Sodium (Protonix 40mg Ivpb (Pre-Docked)) 100 mls @ 200 mls/hr IVPB DAILY [facility] Last Admin: 06/06/16 09:32 Dose: 200 mls/hr Ertapenem 1 gm/ Sodium (Chloride) 50 mls @ 50 mls/hr IVPB DAILY [facility] PRN Reason: Protocol Last Admin: 06/06/16 15:10 Dose: 50 mls/hr Nebivolol (Bystolic -) 5 mg PO DAILY [facility] Last Admin: 06/06/16 10:10 Dose: 5 mg Ondansetron HCl (Zofran Injection) 4 mg IVPB Q6H PRN PRN Reason: NAUSEA Ursodiol (Actigal -) 300 mg PO BID [facility] Last Admin: 06/06/16 09:32 Dose: 300 mg Valsartan (Diovan -) 80 mg PO DAILY [facility] Last Admin: 06/06/16 09:32 Dose: 80 mg - Objective Vital Signs: Vital Signs Temperature 98.7 F 06/06/16 10:00 Pulse Rate 74 06/06/16 10:00 Respiratory Rate 18 06/06/16 10:00 Blood Pressure 133/78 06/06/16 10:00 O2 Sat by Pulse Oximetry (%) 98 06/06/16 10:00 Constitutional: Yes: No Distress Eyes: Yes: Conjunctiva Clear Cardiovascular: Yes: Regular Rate and Rhythm, S1, S2 Respiratory: Yes: CTA Bilaterally Gastrointestinal: Yes: Normal Bowel Sounds, Soft, Other (LLOYD drain in place- serosanguinous fluid) Edema: No Labs: CBC, BMP 06/06/16 06:00 06/06/16 06:00 INR, PTT INR 1.10 (0.82-1.09) 05/29/16 14:17 Assessment/Plan S/P Laparoscopic cholecystecomy Gram Negative bacteremia/ Biliary sepsis- ESBL Continue Ertapenem To complete 14d course IV carbapenem as outpatient
--- NOTE | 2016-06-06 22:39 | EKG ---
Test Reason : Blood Pressure : / mmHG Vent. Rate : 119 BPM Atrial Rate : 085 BPM P-R Int : 000 ms QRS Dur : 126 ms QT Int : 362 ms P-R-T Axes : 000 -26 -16 degrees QTc Int : 509 ms ATRIAL FIBRILLATION WITH RAPID VENTRICULAR RESPONSE RIGHT BUNDLE BRANCH BLOCK ABNORMAL ECG WHEN COMPARED WITH ECG OF 01-JUN-2016 08:52, ATRIAL FIBRILLATION HAS REPLACED SINUS RHYTHM VENT. RATE HAS INCREASED BY [address] NOW DEPRESSED IN LATERAL LEADS T WAVE INVERSION NOW EVIDENT IN ANTERIOR LEADS Confirmed by GEETHA DUNBAR MD ([id number]) on 06/06/2016 10:39:22 PM Referred By: Confirmed By:GEETHA DUNBAR MD
--- NOTE | 2016-06-06 22:40 | EKG ---
Test Reason : Blood Pressure : / mmHG Vent. Rate : 057 BPM Atrial Rate : 057 BPM P-R Int : 134 ms QRS Dur : 122 ms QT Int : 490 ms P-R-T Axes : 033 001 007 degrees QTc Int : 476 ms SINUS BRADYCARDIA RIGHT BUNDLE BRANCH BLOCK ABNORMAL ECG WHEN COMPARED WITH ECG OF 02-JUN-2016 17:34, SINUS RHYTHM HAS REPLACED ATRIAL FIBRILLATION VENT. RATE HAS DECREASED BY [address] NO LONGER DEPRESSED IN LATERAL LEADS T WAVE INVERSION NO LONGER EVIDENT IN ANTERIOR LEADS Confirmed by GEETHA DUNBAR MD ([id number]) on 06/06/2016 10:40:19 PM Referred By: Confirmed By:GEETHA DUNBAR MD
[2016-06-07 09:02] LABS: ANION GAP 10 (8-16); CALCIUM 9.5 mg/dL (8.5-10.1); CO2 26 mmol/L (21-32); CREATININE 0.9 mg/dL (0.7-1.3); GLUCOSE,RANDOM 117 mg/dL (74-106); SGOT/AST 24 U/L (15-37); SGPT/ALT 71 U/L (12-78)
[2016-06-07 09:04] LABS: ALK PHOS 209 U/L (45-117); BILIRUBIN,TOTAL 1.7 mg/dL (0.2-1.0); TOT PROT 6.9 g/dl (6.4-8.2)
--- NOTE | 2016-06-07 09:19 | DS ---
Physical Examination Vital Signs: Vital Signs Temperature 97 F L 06/07/16 05:37 Pulse Rate 62 06/07/16 05:37 Respiratory Rate 20 06/07/16 05:37 Blood Pressure 117/66 06/07/16 05:37 O2 Sat by Pulse Oximetry (%) 98 06/06/16 21:00 Findings/Remarks: NO COMPLAINTS Cardiovascular: Yes: Regular Rate and Rhythm Respiratory: Yes: Regular, CTA Bilaterally Gastrointestinal: Yes: Normal Bowel Sounds, Soft Labs: CBC, BMP 06/06/16 06:00 06/07/16 08:10 Discharge Summary Reason For Visit: CHEST PAIN Current Active Problems Bacteremia (Acute) Chest pain (Acute) GERD (gastroesophageal reflux disease) (Acute) Gallstone of bile duct with gallbladder inflammation and obstruction (Acute) HTN (hypertension) (Acute) Obstructive jaundice (Acute) PAF (paroxysmal atrial fibrillation) (Acute) RUQ abdominal pain (Acute) Hospital Course: Chief Complaint: RUQ abdominal pain radiating to his right side of back since monday History of Present Illness: 65 yr old male came in on monday with sudden onset of excruciating RUQ and epigastric pain and right sided chest pain, had some nausea as well and he came to ER and found to have elevated temp 100.7 and wbc high. per patient he had similar attack about a month ago was at [facility] he got ivabx there and was told that he needs surgery but patient was skeptical about that and refused he has been seeing dr hutchinson every since that episode to see how he is doing he is schedule for gall ballder surgery on june [address] hutchinson in ER: he got asa ful dose and NTG morphine iv abx today he has temp 100.3 elevated wbc count just came back from liver sono was in excruciationg pain in epigastric and RUQ region nad right lower chest wall area earlier today get 2mg morphine no relief then got another 2mg morphine and now pain free History Source: Patient - Past Medical History Cardiovascular: Yes: HTN Gastrointestinal: Yes: GERD - Problems (1) Gallstone of bile duct with gallbladder inflammation and obstruction Assessment/Plan: IV ABX per id SURGERY AND GI ON BOARD-- MRCP NOTED MONITOR LABS DVT px Operative Date: 06/02/16 Pre-Operative Diagnosis: cholelithiasis, choledocholithiasis, abnormal lfts Operation: laparoscopic cholecystectomy, lavage. pale gb, non inflamed Post-Operative Diagnosis: Same as Pre-op Code(s): K80.41 - CALCULUS OF BILE DUCT W CHOLECYSTITIS, UNSP, W OBSTRUCTION (2) RUQ abdominal pain Code(s): R10.11 - RIGHT UPPER QUADRANT PAIN (3) Chest pain Code(s): R07.9 - CHEST PAIN, UNSPECIFIED Qualifiers: Chest pain type: unspecified Qualified Code(s): R07.9 - Chest pain, unspecified (4) HTN (hypertension) Assessment/Plan: MONITOR BP ON BYSTOLIC Code(s): I10 - ESSENTIAL (PRIMARY) HYPERTENSION (5) Bacteremia Assessment/Plan: ABX ID F/U-DURATION OF ABX?? Microbiology 05/30/16 09:33 Blood Culture - Preliminary Blood - Peripheral Venous NO GROWTH OBTAINED AFTER 96 HOURS, INCUBATION TO CONTINUE FOR 1 DAYS. 05/30/16 09:33 Blood Culture - Final Blood - Peripheral Venous Klebsiella Pneumoniae - Esbl Continue Ertapenem To complete 14d course IV carbapenem as outpatient Code(s): R78.81 - BACTEREMIA (6) PAF (paroxysmal atrial fibrillation) Assessment/Plan: NO FURTHER RECURRENCE MONITOR Code(s): I48.0 - PAROXYSMAL ATRIAL FIBRILLATION Condition: Stable - Instructions Disposition: [facility] - Home Medications Comprehensive Discharge Medication List: Ambulatory Orders Nebivolol [Bystolic -] 5 mg PO DAILY 05/29/16 Docusate Sodium [Colace -] 100 mg PO Q12H PRN #60 tab 06/07/16 Ertapenem Sodium [Invanz -] 1 gm IVPB DAILY #11 vial 06/07/16 Pantoprazole Sodium 40 mg PO DAILY #30 tablet. 06/07/16 Picc Line Flush [Picc Line Flush -] 8 ml IVPUSH PRN PRN #0 ml 06/07/16 Ursodiol [Actigal -] 300 mg PO BID #60 tab 06/07/16 Valsartan [Diovan] 80 mg PO DAILY #30 tablet 06/07/16
[2016-06-07] MEDS: ERTAPENEM SODIUM 1 GM in SODIUM CHLORIDE 50 ML IVPB SCH (10:17)
[2016-06-07] MEDS: NEBIVOLOL 5 MG TABLET (FP) PO SCH (10:56)
[2016-06-07] MEDS: URSODIOL 300 MG CAPSULE PO SCH (10:56)
[2016-06-07] MEDS: HEPARIN NA (PORCINE) 5,000 UNITS/ML 1ML VIAL SQ SCH (10:56)
[2016-06-07] MEDS: VALSARTAN 80 MG TABLET (UD) PO SCH (10:56)
[2016-06-07] MEDS: PANTOPRAZOLE SODIUM 100 ML IVPB SCH (10:57)
[2016-06-07] MEDS ORDERED: PT OWN MED DRAWER 7, Y5N ONE (11:10)
[2016-06-07 14:23] VITALS: BP 127/70; PULSE 61; TEMP 97.2
== END 2016-06-07 11:55 | disposition home or self-care (01) | DRG 418 ==
LOC: FER 14:01 → FM/S 15:55 → OBSVTOIN 17:27 → JICU 05-30 16:19 → J7W 06-01 20:19 → JSAMEDAYSX 06-02 15:35 → J4W 06-02 21:58
PROVIDERS: ADMIT Family Medicine; ATTEND Family Medicine
PROC: 0FT44ZZ Resection of Gallbladder, Percutaneous Endoscopic Approach (ICD-10-PCS; principal; 2016-06-02 14:30)
PROC: 02HV33Z Insertion of Infusion Device into Superior Vena Cava, Percutaneous Approach (ICD-10-PCS; 2016-06-06)
DX: K80.10 Calculus of gallbladder with chronic cholecystitis without obstruction (principal); K80.41 Calculus of bile duct with cholecystitis, unspecified, with obstruction; R78.81 Bacteremia; R07.9 Chest pain, unspecified; K21.9 Gastro-esophageal reflux disease without esophagitis; I10 Essential (primary) hypertension; I48.0 Paroxysmal atrial fibrillation; R10.11 Right upper quadrant pain; I95.9 Hypotension, unspecified
CPT/HCPCS: 36415; 36569; 71010-TC; 74181-TC; 76705-TC; 77001-TC; 80053; 81003; 81015; 82150; 82550; 82977; 83605; 83690; 83735; 84100; 84484; 85025; 85027; 85610; 86376; 87040; 87186; 88304-TC; 93005; 93010; 94010; 94760; 99284-25; C1751; G0378; J1644

== ENCOUNTER 2018-02-08 20:40 | Inpatient (IN) | payer BC, OTHER ==
[2018-02-08 20:44] VITALS: BMI 30.5
--- NOTE | 2018-02-08 20:45 | PDOC ---
Rapid Medical Evaluation Time Seen by Provider: 02/08/18 20:41 Medical Evaluation: Allergies Allergy/AdvReac Type Severity Reaction Status Date / Time No Known Allergies Allergy Verified 05/29/16 14:03 I have performed a brief in-person evaluation of this patient. The patient presents with a chief complaint of: left kidney pain. hx of kidney stones. was seen at [facility] this morning and had a CT scan. They discharged him with pain killers Pertinent physical exam findings: No CVA TTP b/l I have ordered the following: labs, UA/culture The patient will proceed to the ED for further evaluation. Discharge Disposition - Diagnosis Renal colic on left side - Referrals - Patient Instructions - Post Discharge Activity
[2018-02-08 21:14] LABS: BASO % 0.4 % (0-2.0); EOS % 1.3 % (0-4.5); HEMATOCRIT 42.6 % (35.4-49); HEMOGLOBIN 15.1 GM/dL (11.7-16.9); LYMPH % 15.8 % (8-40); MCH 32.4 pg (25.7-33.7); MCHC 35.5 g/dl (32.0-35.9); MEAN CELL VOLUME 91.4 fl (80-96); NEUT % 75.5 % (42.8-82.8); PLATELET COUNT 213 K/MM3 (134-434); RBC 4.66 M/mm3 (4.00-5.60); RDW 14.3 % (11.9-15.9)
[2018-02-08 21:17] LABS: URINE APPEARANCE CLEAR; URINE BILIRUBIN NEGATIVE (<2.0 mg/dL); URINE COLOR YELLOW; URINE GLUCOSE (UA) NEGATIVE (NEGATIVE); URINE KETONE TRACE (NEGATIVE); URINE LEUK ESTERASE NEGATIVE (NEGATIVE); URINE NITRITE NEGATIVE (NEGATIVE); URINE PROTEIN NEGATIVE (NEGATIVE); URINE UROBILINOGEN NEGATIVE mg/dL (0.2-1.0)
[2018-02-08 21:25] LABS: URINE MUCUS FEW
[2018-02-08 21:43] LABS: ALBUMIN 4.2 g/dl (3.4-5.0); ALK PHOS 133 U/L (45-117); ANION GAP 8 MMOL/L (8-16); BILIRUBIN,TOTAL 0.9 mg/dL (0.2-1); BLOOD UREA NITROGEN 20 mg/dL (7-18); CALCIUM 8.7 mg/dL (8.5-10.1); CHLORIDE 108 mmol/L (98-107); CO2 24 mmol/L (21-32); CREATININE 1.1 mg/dL (0.55-1.3); GLUCOSE,RANDOM 121 mg/dL (74-106); POTASSIUM 4.1 mmol/L (3.5-5.1); SGOT/AST 16 U/L (15-37); SGPT/ALT 23 U/L (13-61); SODIUM 140 mmol/L (136-145); TOT PROT 7.6 g/dl (6.4-8.2)
[2018-02-08] MEDS ORDERED: SODIUM CHLORIDE 0.9% 500 ML INFUS.BAG IV ONE (22:16)
[2018-02-08] MEDS ORDERED: KETOROLAC TROMETHAMINE 30 MG/1 ML VIAL IVPUSH ONE (22:18)
[2018-02-08] MEDS ORDERED: TAMSULOSIN HCL 0.4 MG CAP PO ONE (22:19)
[2018-02-08] MEDS ORDERED: KETOROLAC TROMETHAMINE 30 MG/1 ML VIAL ONE (22:25)
[2018-02-08] MEDS ORDERED: TAMSULOSIN HCL 0.4 MG CAP ONE (22:25)
--- NOTE | 2018-02-08 22:33 | PDOC ---
History of Present Illness - General Chief Complaint: Pain, Acute Stated Complaint: PAIN, ACUTE Time Seen by Provider: 02/08/18 20:41 History Source: Patient - History of Present Illness Initial Comments: 02/08/18 22:25 The patient is a 67 year old male with a PMH of nephrolithiasis, HTN, BPH that presented to ED complaining of left flank pain that started early today. He went to [facility] in [facility] where he was told that he has non obstructing kidney stone on left side and he was discharged home on Naproxen 250 mg BID. He also had CT of the abdomen but he doesn't know the results. The pain was not well controlled, so he decided to come to [facility]. It is 10, constant, left flank, no radiation, improves with lying flat. He also reports dysuria, decreased frequency of urination and hematuria. The patient visited his Urologist 2 weeks ago. He was treated for UTI and had CT of the abdomen but was not notified about the results yet. He denies fever, chills, nausea, vomiting. PMD: Dr Morales Timing/Duration: reports: constant Quality: reports: severe Abdominal Pain Onset Location: reports: flank (left) Pain Radiation: reports: no radiation Past History - Past Medical History Allergies/Adverse Reactions: Allergies Allergy/AdvReac Type Severity Reaction Status Date / Time No Known Allergies Allergy Verified 02/08/18 23:10 Home Medications: Ambulatory Orders Tamsulosin HCl [Flomax] 0.4 mg PO BID 02/08/18 COPD: No GI Disorders: Yes (GALL BLADDER DISEASE,GERD) HTN: Yes - Suicide/Smoking/Psychosocial Hx Smoking History: Never smoked Have you smoked in the past 12 months: No Hx Alcohol Use: No Drug/Substance Use Hx: No Substance Use Type: None Hx Substance Use Treatment: No Review of Systems - Review of Systems Able to Perform ROS?: Yes Constitutional: No: Symptoms Reported, Fever HEENTM: No: Symptoms Reported Respiratory: No: Symptoms reported Cardiac (ROS): No: Symptoms Reported ABD/GI: No: Symptoms Reported : Yes: Symptoms Reported, See HPI, Dysuria, Frequency, Flank Pain, Hematuria Musculoskeletal: Yes: Symptoms Reported, Back Pain *Physical Exam - Vital Signs Last Vital Signs Temp Pulse Resp BP Pulse Ox 97.8 F 76 18 133/89 98 02/08/18 20:42 02/08/18 20:42 02/08/18 20:42 02/08/18 20:42 02/08/18 20:42 - Physical Exam General Appearance: Yes: Nourished, Appropriately Dressed, Moderate Distress HEENT: positive: EOMI, ALBINA Respiratory/Chest: positive: Lungs Clear, Normal Breath Sounds Cardiovascular: positive: Regular Rhythm, Regular Rate, S1, S2. negative: Murmur Gastrointestinal/Abdominal: positive: Normal Bowel Sounds, Soft. negative: Guarding, Rebound Moderate Sedation - Procedure Monitoring Vital Signs: Procedure Monitoring Vital Signs Temperature 97.8 F 02/08/18 20:42 Pulse Rate 76 02/08/18 20:42 Respiratory Rate 18 02/08/18 20:42 Blood Pressure 133/89 02/08/18 20:42 O2 Sat by Pulse Oximetry (%) 98 02/08/18 20:42 ED Treatment Course - LABORATORY CBC & Chemistry Diagram: 02/08/18 21:04 02/08/18 21:04 - ADDITIONAL ORDERS Additional order review: Laboratory Results 02/08/18 02/08/18 21:04 21:04 Sodium 140 Potassium 4.1 Chloride 108 H Carbon Dioxide 24 Anion Gap 8 BUN 20 H Creatinine 1.1 Creat Clearance w eGFR > 60 Random Glucose 121 H Calcium 8.7 Total Bilirubin 0.9 AST 16 ALT 23 Alkaline Phosphatase 133 H Total Protein 7.6 Albumin 4.2 Urine Color Yellow Urine Appearance Clear Urine pH 5.0 Ur Specific [place] 1.031 Urine Protein Negative Urine Glucose (UA) Negative Urine Ketones Trace H Urine Blood 2+ H Urine Nitrite Negative Urine Bilirubin Negative Urine Urobilinogen Negative Ur Leukocyte Esterase Negative Urine WBC (Auto) 3 Urine RBC (Auto) 145 Urine Mucus Few 02/08/18 21:04 RBC 4.66 MCV 91.4 MCHC 35.5 RDW 14.3 MPV 7.0 L Neutrophils % 75.5 D Lymphocytes % 15.8 Monocytes % 7.0 Eosinophils % 1.3 D Basophils % 0.4 Medical Decision Making - Medical Decision Making 02/08/18 22:40 The patient presents today complaining of left flank pain. He had imaging CT done earlier today that visualized stone. He doesn't have the report of the test with him. He was prescribed Naproxen that didn't improve the pain. For his nephrolithiasis we ordered CBC, CMP, UA. CBC and CMP normal, UA with 2+blood. Normal vital signs. We ordered NS 1L, Ketorolac, Flomax. 02/08/18 23:25 The patient has good improvement of his pain with Toradol, it is 4/10 now. [facility], spoke to Natalie MADDEN. The patient was evaluated there for left flank pain, had CT abdomen that showed 5 mm stone in left UV junction, 4 mm left distal uretheral calculus, bilateral nephrolithiasis, diverticulosis. He was seen by Urologist that recommended discharge on PO medications and f/u with Urology. We are going to recommend Ibuprophen 600 mg Q6h and Oxycodone for breakthrough pain, f/u with His Urologist in [place]. 02/08/18 23:55 The patient started experiencing severe pain again, Morphine 4 mg was given and Spiral CT ordered. Will probably need admission. 02/09/18 00:[address] Hospitalist called for admission to observation. *DC/Admit/Observation/Transfer Diagnosis at time of Disposition: Renal colic on left side - Discharge Dispostion Decision to Admit order: Yes - Referrals - Patient Instructions - Post Discharge Activity
[2018-02-08] MEDS ORDERED: morphine SULFATE 4 MG/ML VIAL IVPUSH ONE (23:49)
[2018-02-08] MEDS ORDERED: morphine SULFATE 4 MG/ML VIAL ONE (23:59)
--- NOTE | 2018-02-09 00:40 | PDOC ---
Attending Attestation - Resident Resident Name: Ekaterina Irwin - ED Attending Attestation I have performed the following: I have examined & evaluated the patient, The case was reviewed & discussed with the resident, I agree w/resident's findings & plan, Exceptions are as noted - HPI HPI: 02/09/18 00:41 The patient is a 67 year old male presenting with his , with a significant past medical history of nephrolithiasis, HTN, BPH and GERD, who presents to the ED complaining of left sided flank pain that began this morning. He notes that he went to [facility] earlier today and was diagnosed with a non obstructing kidney stone on the left side. He was given medication for pain with relief and DC to f/u with his urologist at [place]. He reports that he was prescribed naproxen 250 mg BID upon discharge. He notes that the pain was not well controlled with naproxen prompting him to come to the ED. He notes that his left flank pain is constant, 9/10 in severity. He denies any radiation. He states it feels like his previous renal colic. Denies dysuria, frequency, urgency, hesitation. The patient saw a urologist and was treated for a UTI 2 weeks ago. The patient denies chest pain, shortness of breath, headache and dizziness. Denies fever, chills, nausea, vomiting, diarrhea or constipation. Dr. Obrien able to speak with ED PA from [facility] who reports pt had a 5mm stone in L UVJ and 4mm stone in the distal urethra. Allergies: none Past surgical history: None reported Social History: No alcohol, tobacco or drug use reported - Physicial Exam PE: 02/09/18 00:56 GENERAL: Awake, alert, and fully oriented, appears uncomfortable EYES: PERRLA, EOMI, sclera anicteric, conjunctiva clear ENT: Moist mucosa NECK: Normal ROM, supple, no lymphadenopathy, JVD, or masses LUNGS: Breath sounds equal, clear to auscultation bilaterally. No wheezes, and no crackles HEART: Regular rate and rhythm, normal S1 and S2, no murmurs, rubs or gallops ABDOMEN: Soft, nontender, normoactive bowel sounds. No guarding, no rebound. No masses EXTREMITIES: Normal range of motion, no edema. No erythema, or tenderness BACK:+ L CVAT NEUROLOGICAL: Normal speech, cranial nerves intact, 5/5 strength in all 4 extremities, normal sensation to light touch in all 4 extremities, normal gait SKIN: Warm, Dry, normal turgor, no rashes or lesions noted - Medical Decision Making 02/09/18 01:11 67yo M hx renal colic presents to the ED with poorly controlled pain after dx with 5mm L UVJ stone and 4mm distal urethral stone earlier today. Vitals wnl. Exam with L CVAT. Thus far, labs unremarkable. UA with blood, but no evidence of infection. Pain initially controlled with toradol, however, pt later having 9 /10 pain again. Dosed morphine with relief initially but pain returned. states she may seen a small stone in his urine. At this point will admit pt for pain control and further w/u. Case discussed with Dr. Paredes, pt accepted for admission to obs. Case discussed in detail with admitting physician including history, physical exam and ancillary studies. Admitting physician has assumed care for the patient, will follow all pending diagnostics and will complete the evaluation and treatment.
[2018-02-09] MEDS ORDERED: MORPHINE SULFATE 2 MG/ML VIAL IVPUSH PRN (01:14)
[2018-02-09] MEDS ORDERED: ONDANSETRON 4 MG/2 ML VIAL IVPUSH PRN ×2 (01:15→16:25)
[2018-02-09] MEDS: SODIUM CHLORIDE 1,000 ML IV SCH ×4 (02:00→22:47)
--- NOTE | 2018-02-09 03:28 | HP ---
CHIEF COMPLAINT: left flank pain, nephrolithiasis PCP: Carmen HISTORY OF PRESENT ILLNESS: 67yo man with history of HTN, remote hx of nephrolithiasis on right side, c/o severe left sided flank pain which started 12/6 in am seen in ER in [facility] and diagnosed 5 mm stone in left UVJ and 4 mm stone in urethra. D/c with pain meds home. Pain returned and patient came to [facility] for further evaluation. Declined repeat abd/pelvis CT for fear of excessive radiation. Pain is now better controlled. ER course was notable for: (1) toradol (2) IV fluids (3) Recent Travel: none PAST MEDICAL HISTORY: nephrolithiasis, HTN, GERD PAST SURGICAL HISTORY: none Social History: Smoking: no Alcohol: no Drugs: no Family History: Allergies No Known Allergies Allergy (Verified 02/08/18 23:10) HOME MEDICATIONS: Home Medications Medication Instructions Recorded Tamsulosin HCl [Flomax] 0.4 mg PO BID 02/08/18 REVIEW OF SYSTEMS CONSTITUTIONAL: Absent: fever, chills, diaphoresis, generalized weakness, malaise, loss of appetite, weight change HEENT: Absent: rhinorrhea, nasal congestion, throat pain, throat swelling, difficulty swallowing, mouth swelling, ear pain, eye pain, visual changes CARDIOVASCULAR: Absent: chest pain, syncope, palpitations, irregular heart rate, lightheadedness , peripheral edema RESPIRATORY: Absent: cough, shortness of breath, dyspnea with exertion, orthopnea, wheezing, stridor, hemoptysis GASTROINTESTINAL: Absent: abdominal pain, abdominal distension, vomiting, diarrhea, constipation, melena, hematochezia Present- nausea, GENITOURINARY: Absent: dysuria, frequency, urgency, hesitancy, hematuria, genital pain Present- left flank pain MUSCULOSKELETAL: Absent: myalgia, arthralgia, joint swelling, back pain, neck pain SKIN: Absent: rash, itching, pallor HEMATOLOGIC/IMMUNOLOGIC: Absent: easy bleeding, easy bruising, lymphadenopathy, frequent infections ENDOCRINE: Absent: unexplained weight gain, unexplained weight loss, heat intolerance, cold intolerance NEUROLOGIC: Absent: headache, focal weakness or paresthesias, dizziness, unsteady gait, seizure, mental status changes, bladder or bowel incontinence PSYCHIATRIC: Absent: anxiety, depression, suicidal or homicidal ideation, hallucinations. PHYSICAL EXAMINATION Vital Signs - 24 hr 02/08/18 02/09/18 20:42 02:15 Temperature 97.8 F 98.7 F Pulse Rate 76 Pulse Rate [ 64 Right Radial] Respiratory 18 16 Rate Blood Pressure 133/89 Blood Pressure 122/70 [Right Arm] O2 Sat by Pulse 98 95 Oximetry (%) GENERAL: Awake, alert, and fully oriented, in no acute distress. HEAD: Normal with no signs of trauma. EYES: Pupils equal, round and reactive to light, extraocular movements intact, sclera anicteric, conjunctiva clear. No lid lag. EARS, NOSE, THROAT: Ears normal, nares patent, oropharynx clear without exudates. Moist mucous membranes. NECK: Normal range of motion, supple without lymphadenopathy, JVD, or masses. LUNGS: Breath sounds equal, clear to auscultation bilaterally. No wheezes, and no crackles. No accessory muscle use. HEART: Regular rate and rhythm, normal S1 and S2 without murmur, rub or gallop. ABDOMEN: Soft, nontender, not distended, normoactive bowel sounds, no guarding, no rebound, no masses. No hepatomegaly or splenomegaly. MUSCULOSKELETAL: Normal range of motion at all joints. No bony deformities or tenderness. No CVA tenderness. UPPER EXTREMITIES: 2+ pulses, warm, well-perfused. 2 distal phalanxes s/p traumatic amputation LOWER EXTREMITIES: 2+ pulses, warm, well-perfused. No calf tenderness. No peripheral edema. NEUROLOGICAL: Cranial nerves II-XII intact. Normal speech. Normal gait. PSYCHIATRIC: Cooperative. Good eye contact. Appropriate mood and affect. SKIN: Warm, dry, normal turgor, no rashes or lesions noted, normal capillary refill. Laboratory Results - last 24 hr 02/08/18 02/08/18 02/08/18 21:04 21:04 21:04 WBC 8.0 RBC 4.66 Hgb 15.1 Hct 42.6 MCV 91.4 MCH 32.4 MCHC 35.5 RDW 14.3 Plt Count 213 MPV 7.0 L Absolute Neuts (auto) 6.0 Neutrophils % 75.5 D Lymphocytes % 15.8 Monocytes % 7.0 Eosinophils % 1.3 D Basophils % 0.4 Nucleated RBC % 0 Sodium 140 Potassium 4.1 Chloride 108 H Carbon Dioxide 24 Anion Gap 8 BUN 20 H Creatinine 1.1 Creat Clearance w eGFR > 60 Random Glucose 121 H Calcium 8.7 Total Bilirubin 0.9 AST 16 ALT 23 Alkaline Phosphatase 133 H Total Protein 7.6 Albumin 4.2 Urine Color Yellow Urine Appearance Clear Urine pH 5.0 Ur Specific [place] 1.031 Urine Protein Negative Urine Glucose (UA) Negative Urine Ketones Trace H Urine Blood 2+ H Urine Nitrite Negative Urine Bilirubin Negative Urine Urobilinogen Negative Ur Leukocyte Esterase Negative Urine WBC (Auto) 3 Urine RBC (Auto) 145 Urine Mucus Few ASSESSMENT/PLAN: #67yo man with recurrent renal stones, left UVJ and urethra renal stones both 5 and 4 mm, visualized at outside hospital. Renal parameters wnl, RBC visible in UA. -observation -IV fluid hydration -morphine PO slow release with 2mg IV for breakthrough pain -zofran IV prn if nausea or vomiting -renal u/s for now since patient does not wish repeat abd/pelvis CT -urology evaluation -2g Na diet for now Visit type - Emergency Visit Emergency Visit: Yes ED Registration Date: 02/09/18 Care time: The patient presented to the Emergency Department on the above date and was hospitalized for further evaluation of their emergent condition. - New Patient This patient is new to me today: Yes Date on this admission: 02/09/18 - Critical Care Critical Care patient: No
[2018-02-09] MEDS: morphine SO4 SUSTAINED ACTING 15 MG TABLET.SA PO SCH ×2 (04:25→10:07)
[2018-02-09 08:27] LABS: HEMATOCRIT 41.7 % (35.4-49); HEMOGLOBIN 13.8 GM/dL (11.7-16.9); MCH 30.7 pg (25.7-33.7); MCHC 33.1 g/dl (32.0-35.9); MEAN CELL VOLUME 92.7 fl (80-96); MEAN PLT VOLUME 7.3 fl (7.5-11.1); PLATELET COUNT 173 K/MM3 (134-434); RDW 14.6 % (11.9-15.9); WHITE BLOOD COUNT 8.2 K/mm3 (4.0-10.0)
[2018-02-09 08:40] LABS: ANION GAP 8 MMOL/L (8-16); BLOOD UREA NITROGEN 18 mg/dL (7-18); CHLORIDE 109 mmol/L (98-107); CO2 23 mmol/L (21-32); CREATININE 1.4 mg/dL (0.55-1.3); GLUCOSE,RANDOM 91 mg/dL (74-106); POTASSIUM 4.5 mmol/L (3.5-5.1); SODIUM 141 mmol/L (136-145)
[2018-02-09] MEDS ORDERED: TAMSULOSIN HCL 0.4 MG CAP PO SCH (10:00)
[2018-02-09] MEDS ORDERED: KETOROLAC TROMETHAMINE 30 MG/1 ML VIAL ONE (10:48)
[2018-02-09] MEDS ORDERED: DEXAMETHASONE SOD PHOSPHATE 4 MG/1 ML VIAL ONE (10:48)
[2018-02-09] MEDS ORDERED: LIDOCAINE HCL/PF 2% SDV 5ML VIAL ONE (10:48)
[2018-02-09] MEDS ORDERED: MIDAZOLAM HCL 2 MG/2 ML SINGLE DOSE VIAL ONE (10:49)
--- NOTE | 2018-02-09 11:37 | CON.GU ---
Consult Consult Specialty:: Reason for Consultation:: L UVJ calculus - History of Present Illness Chief Complaint: L flank pain History of Present Illness: 67yo man with history of HTN, remote hx of nephrolithiasis on right side, c/o severe left sided flank pain which started 12/6 in am seen in ER in [facility] and diagnosed 5 mm stone in left UVJ and 4 mm stone in urethra. D/c with pain meds home. Pain returned and patient came to [facility] for further evaluation. Declined repeat abd/pelvis CT for fear of excessive radiation. Pain is now better controlled. cons req. - History Source History Provided By: Patient, Medical Record - Past Medical History Cardio/Vascular: Yes: HTN (recent diagnosis a month ago after being diagnosed with cholelithiasis) Gastrointestinal: Yes: GERD Hepatobiliary: Yes: Cholelithiasis - Alcohol/Substance Use Hx Alcohol Use: Yes - Smoking History Smoking history: Former smoker Have you smoked in the past 12 months: No If you are a former smoker, when did you quit?: 40 years ago - Social History Usual Living Arrangement: With Spouse (2nd spouse) Home Medications - Allergies Allergies/Adverse Reactions: Allergies Allergy/AdvReac Type Severity Reaction Status Date / Time No Known Allergies Allergy Verified 02/08/18 23:10 - Home Medications Home Medications: Ambulatory Orders Tamsulosin HCl [Flomax] 0.4 mg PO BID 02/08/18 Physical Exam- Vital Signs: Vital Signs Temperature 98.0 F 02/09/18 05:59 Pulse Rate 62 02/09/18 05:59 Respiratory Rate 16 02/09/18 05:59 Blood Pressure 138/87 02/09/18 05:59 O2 Sat by Pulse Oximetry (%) 95 02/09/18 05:59 Gastrointestinal: Yes: Normal Bowel Sounds, Soft Renal/: Yes: CVA Tenderness - Left Kidneys: Yes: Flank Pain Left, Tenderness Testicles: Yes: WNL Scrotum: Yes: WNL Penis: Yes: WNL Prostate Exam: Yes: WNL Labs: CBC, BMP 02/09/18 06:15 02/09/18 06:15 Problem List - Problems (1) Ureteral calculus Assessment/Plan: Tamsulosin, ivfs, analgesia, strain urine, LULL JJ stent insertion Code(s): N20.1 - CALCULUS OF URETER
--- NOTE | 2018-02-09 11:47 | PN ---
"Progress Note, Physician Chief Complaint: NEPHROLITHIASIS History of Present Illness: NAD NPO for OR for Urethral stent HCS history check- no use of opioids in the past: Search Terms: MUSA DE SOUZA, 1950 Search Date: 02/09/2018 11:42:02 AM The Drug Utilization Report below displays all of the controlled substance prescriptions, if any, that your patient has filled in the last twelve months. The information displayed on this report is compiled from pharmacy submissions to the Department, and accurately reflects the information as submitted by the pharmacies. This report was requested by: Ovidio Wiggins | Reference #: [id number] There are no results for the search terms that you entered. - Current Medication List Current Medications: Active Medications Sodium Chloride (Normal Saline -) 1,000 mls @ 83 mls/hr IV ASDIR [facility] Last Admin: 02/09/18 02:00 Dose: 83 mls/hr Morphine Sulfate (Morphine Sulfate) 2 mg IVPUSH Q4H PRN PRN Reason: PAIN LEVEL 6-10 Last Admin: 02/09/18 06:19 Dose: 2 mg Morphine Sulfate (Ms Contin -) 15 mg PO BID [facility] Last Admin: 02/09/18 10:07 Dose: Not Given Ondansetron HCl (Zofran Injection) 4 mg IVPUSH Q4H PRN PRN Reason: NAUSEA AND/OR VOMITING Tamsulosin HCl (Flomax -) 0.4 mg PO BID [facility] Last Admin: 02/09/18 10:07 Dose: 0.4 mg - Objective Vital Signs: Vital Signs Temperature 98.0 F 02/09/18 05:59 Pulse Rate 62 02/09/18 05:59 Respiratory Rate 16 02/09/18 05:59 Blood Pressure 138/87 02/09/18 05:59 O2 Sat by Pulse Oximetry (%) 95 02/09/18 05:59 Constitutional: Yes: Well Nourished, No Distress, Calm Cardiovascular: Yes: Regular Rate and Rhythm Gastrointestinal: Yes: Normal Bowel Sounds, Soft, Abdomen, Obese Labs: CBC, BMP 02/09/18 06:15 02/09/18 06:15 Problem List - Problems (1) JENNIFER (acute kidney injury) Assessment/Plan: -2/2 to uretral obstruction -Nephrology consult -monitor trend Code(s): N17.9 - ACUTE KIDNEY FAILURE, UNSPECIFIED (2) Kidney stones Assessment/Plan: -Seen by Urology -Going for uretral stent today Code(s): N20.0 - CALCULUS OF KIDNEY (3) Renal colic on left side Assessment/Plan: -pain management -Urology on board -Cystoscopy Code(s): N23 - UNSPECIFIED RENAL COLIC Assessment/Plan see problem list self ambulatory"
[2018-02-09] MEDS ORDERED: CLINDAMYCIN PHOSPHATE 600 MG/4 ML VIAL ONE (12:20)
[2018-02-09] MEDS ORDERED: oxyCODONE HCL 5 MG TABLET PO PRN (14:58)
[2018-02-09] MEDS ORDERED: LACTATED RINGERS SOLUTION 1,000 ML IV SCH (15:00)
--- NOTE | 2018-02-09 15:01 | OP ---
Operative Note - Note: Operative Date: 02/09/18 Pre-Operative Diagnosis: L UVJ calculus Operation: L ureteroscopic laser lithotripsy and JJ stent insertion Findings: L UVJ calc Surgeon: Rex Figueroa Anesthesiologist/TABULATING MACHINE MECHANIC: Dami Stovall Anesthesia: General Specimens Removed: L ureteral calculus Estimated Blood Loss (mls): 0 Drains & Tubes with Location: 6 fr 26 cm L JJ Operative Report Dictated: Yes
[2018-02-09] MEDS: TAMSULOSIN HCL 0.4 MG CAP PO SCH (22:40)
--- NOTE | 2018-02-10 09:08 | OP ---
DATE OF OPERATION: 02/09/2018 PREOPERATIVE DIAGNOSIS: Left ureteral calculus. POSTOPERATIVE DIAGNOSIS: Left ureteral calculus. PROCEDURE: Left ureteroscopic laser lithotripsy, left double J stent insertion. SURGEON: Rex Figueroa MD ENVIRONMENTAL CONSERVATION PROFESSOR: None. ANESTHESIA: General via laryngeal mask. ANESTHESIOLOGIST: SPECIMENS: Left ureteral calculus. CULTURES: None. DRAINS: A 6-Kyrgyz 26-cm left double J stent. ESTIMATED BLOOD LOSS: None. COMPLICATIONS: None. DESCRIPTION OF PROCEDURE: The patient was brought into the operating room and placed on the operating room table in supine position. After administration of general anesthesia via laryngeal mask. IV antibiotics were administered. Sequential compression devices were placed. The patient was placed in dorsal lithotomy position. The perineum and genitals were prepped and draped in the usual sterile manner. A 22-Kyrgyz cystoscope was inserted into the bladder under direct vision with a 30-degree telescope. Anterior urethra was normal. The prostatic urethra demonstrated moderate BPH. The bladder was entered and thoroughly inspected. There were no foreign bodies, tumors, stones, inflammation. Both ureteral orifices were in their usual location with diminished efflux in the left ureteral orifice. The left ureteral orifice was cannulated with a 0.038 guidewire, which was advanced to the level of the left renal pelvis under fluoroscopic and direct visual guidance. Now a dual lumen catheter was inserted. Retrograde pyelogram was done and demonstrated the wire to be in good position in the collecting system. There was no hydronephrosis. The bladder was emptied and cystoscope removed. A semirigid ureteroscope was inserted into the bladder. A 2nd wire was passed into the ureteral orifice, and the ureteroscope was now inserted in the left distal ureter where approximately a 4-mm stone was visualized. Using a 365 Micron laser fiber, laser lithotripsy was done. The only large fragment remaining was basketed and removed. The cystoscope was backloaded, and a 6-Kyr[place] 26-cm left double-J stent was inserted over the guidewire under direct visual and fluoroscopic guidance after retrograde pyelogram confirmed no extravasation and no filling defects. The stent was left with 1 coil in the renal pelvis and 1 coil in the bladder. The bladder was emptied and the cystoscope removed. Tolerated the procedure well and was awoken from anesthesia in the operating room and transferred to the recovery room in stable condition. The stent was secured to the penis with a suture and a Tegaderm. Eze [id number]
[2018-02-10] MEDS: TAMSULOSIN HCL 0.4 MG CAP PO SCH ×2 (10:55→22:11)
[2018-02-10 11:27] LABS: ALBUMIN 2.9 g/dl (3.4-5.0); ALK PHOS 103 U/L (45-117); ANION GAP 8 MMOL/L (8-16); BILIRUBIN,TOTAL 1.1 mg/dL (0.2-1); BLOOD UREA NITROGEN 25 mg/dL (7-18); CALCIUM 7.9 mg/dL (8.5-10.1); CHLORIDE 107 mmol/L (98-107); CO2 24 mmol/L (21-32); CREATININE 1.9 mg/dL (0.55-1.3); GLUCOSE,RANDOM 105 mg/dL (74-106); POTASSIUM 3.6 mmol/L (3.5-5.1); SGOT/AST 13 U/L (15-37); SGPT/ALT 19 U/L (13-61); SODIUM 139 mmol/L (136-145); TOT PROT 5.9 g/dl (6.4-8.2)
--- NOTE | 2018-02-10 12:00 | PN ---
Progress Note, Physician - Current Medication List Current Medications: Active Medications Sodium Chloride (Normal Saline -) 1,000 mls @ 83 mls/hr IV ASDIR [facility] Last Admin: 02/09/18 22:47 Dose: 83 mls/hr Morphine Sulfate (Morphine Sulfate) 2 mg IVPUSH Q4H PRN PRN Reason: PAIN LEVEL 6-10 Ondansetron HCl (Zofran Injection) 4 mg IVPUSH Q4H PRN PRN Reason: NAUSEA AND/OR VOMITING Oxycodone HCl (Roxicodone -) 5 mg PO Q4H PRN PRN Reason: PAIN LEVEL 1-5 Stop: 02/10/18 14:57 Last Admin: 02/09/18 22:48 Dose: 5 mg Tamsulosin HCl (Flomax -) 0.4 mg PO BID [facility] Last Admin: 02/10/18 10:55 Dose: 0.4 mg - Objective Vital Signs: Vital Signs Temperature 97.7 F 02/10/18 06:00 Pulse Rate 65 02/10/18 06:00 Respiratory Rate 18 02/10/18 06:00 Blood Pressure 107/60 02/10/18 06:00 O2 Sat by Pulse Oximetry (%) 96 02/10/18 00:40 Cardiovascular: Yes: Regular Rate and Rhythm Respiratory: Yes: Regular, CTA Bilaterally Gastrointestinal: Yes: Normal Bowel Sounds, Soft. No: Tenderness Labs: CBC, BMP 02/09/18 06:15 02/10/18 10:25 Problem List - Problems (1) JENNIFER (acute kidney injury) Assessment/Plan: -IVF -RENAL -MONITOR Code(s): N17.9 - ACUTE KIDNEY FAILURE, UNSPECIFIED (2) Renal colic on left side Assessment/Plan: Operative Date: 02/09/18 Pre-Operative Diagnosis: L UVJ calculus Operation: L ureteroscopic laser lithotripsy and JJ stent insertion Findings: L UVJ calc Surgeon: Rex Figueroa Code(s): N23 - UNSPECIFIED RENAL COLIC (3) HTN (hypertension) Assessment/Plan: Monitor Vital Signs Period Temp Pulse Resp BP Sys/Myers Pulse Ox Last 24 Hr 97.5 F-97.8 F 50-67 12-20 102-1126/49-71 96-99 Code(s): I10 - ESSENTIAL (PRIMARY) HYPERTENSION
--- NOTE | 2018-02-10 12:45 | CONSULT ---
Consult Consult Specialty:: Nephrology ( Leonel/ Arnel) Reason for Consultation:: Abnormal kideny functions - History of Present Illness Chief Complaint: 67yo man with history of HTN, remote hx of nephrolithiasis on right side, admitted with severe left sided flank pain which started 12/6 in am seen in ER in [facility] and diagnosed 5 mm stone in left UVJ and 4 mm stone in urethra. D/c with pain meds home. Pain returned and patient came to [facility] for further evaluation. He had laser stone removal and JJ stent placement Left. The renal functions are worsening slowly. - History Source History Provided By: Patient, Medical Record - Past Medical History Cardio/Vascular: Yes: HTN (recent diagnosis a month ago after being diagnosed with cholelithiasis) Gastrointestinal: Yes: GERD Hepatobiliary: Yes: Cholelithiasis - Alcohol/Substance Use Hx Alcohol Use: Yes - Smoking History Smoking history: Former smoker Have you smoked in the past 12 months: No If you are a former smoker, when did you quit?: 40 years ago - Social History Usual Living Arrangement: With Spouse (2nd spouse) Home Medications - Allergies Allergies/Adverse Reactions: Allergies Allergy/AdvReac Type Severity Reaction Status Date / Time No Known Allergies Allergy Verified 02/08/18 23:10 - Home Medications Home Medications: Ambulatory Orders Tamsulosin HCl [Flomax] 0.4 mg PO BID 02/08/18 Review of Systems - Review of Systems Constitutional: reports: Weakness Cardiovascular: reports: No Symptoms Respiratory: reports: No Symptoms Gastrointestinal: reports: No Symptoms Genitourinary: reports: Flank Pain, Hematuria Breasts: reports: No Symptoms Reported Musculoskeletal: reports: Back Pain Psychiatric: reports: No Symptoms Physical Exam Vital Signs: Vital Signs Temperature 97.7 F 02/10/18 06:00 Pulse Rate 65 02/10/18 06:00 Respiratory Rate 18 02/10/18 06:00 Blood Pressure 107/60 02/10/18 06:00 O2 Sat by Pulse Oximetry (%) 96 02/10/18 00:40 Constitutional: Yes: No Distress, Anxious HENT: Yes: Normocephalic Neck: Yes: Trachea Midline Cardiovascular: Yes: Regular Rate and Rhythm, S1, S2 Respiratory: Yes: CTA Bilaterally Gastrointestinal: Yes: Normal Bowel Sounds Renal/: Yes: CVA Tenderness - Left, Hematuria. No: Johnson Present Musculoskeletal: Yes: Back Pain Edema: No Labs: CBC, BMP 02/09/18 06:15 02/10/18 10:25 Assessment/Plan 67yo man with history of HTN, remote hx of nephrolithiasis on right side, c/o severe left sided flank pain which started 12/6 in am seen in ER in [facility] and diagnosed 5 mm stone in left UVJ and 4 mm stone in urethra. D/c with pain meds home. Pain returned and patient came to [facility] for further evaluation. The patient had laser Lithotripsy and JJ stent placement. Reports that he is not putting out much urine yet. Acute Kidney failure from Obstruction and possibly Hemodynamic changes. IV fluids well tolerated. Will continue the same. The renal functions expected to worsen before starting to improve. Will maintain euvolemia. Will need Stone work up in the future. Thank you. Aliyah Castaneda MD
[2018-02-10] MEDS: MORPHINE SULFATE 2 MG/ML VIAL IVPUSH PRN ×3 (14:10→20:09)
[2018-02-10] MEDS: SODIUM CHLORIDE 1,000 ML IV SCH ×3 (14:11→22:10)
--- NOTE | 2018-02-10 14:38 | PN ---
KIYA Arzola Note Chief Complaint: pt c/o L flank pain History of Present Illness: POD # 1 s/p LULL JJ stent - Objective Vital Signs: Vital Signs Temperature 98.4 F 02/10/18 14:23 Pulse Rate 58 L 02/10/18 14:23 Respiratory Rate 18 02/10/18 14:23 Blood Pressure 131/88 02/10/18 14:23 O2 Sat by Pulse Oximetry (%) 96 02/10/18 00:40 Gastrointestinal: Yes: Soft Genitourinary: No: CVA Tenderness - Left, CVA Tenderness - Right Labs/Additional Data: CBC, BMP 02/09/18 06:15 02/10/18 10:25 Problem List - Problems (1) Ureteral calculus Assessment/Plan: I will remove JJ stent as pt has severe stent related pain Code(s): N20.1 - CALCULUS OF URETER
[2018-02-10] MEDS ORDERED: MORPHINE SULFATE 2 MG/ML VIAL IVPUSH ONE (18:00)
--- NOTE | 2018-02-11 07:20 | PN ---
Progress Note, Physician Chief Complaint: s/p cysto/stent under general anesthesia post op day one History of Present Illness: under general anesthesia - Current Medication List Current Medications: Active Medications Sodium Chloride (Normal Saline -) 1,000 mls @ 83 mls/hr IV ASDIR [facility] Last Admin: 02/10/18 22:10 Dose: 83 mls/hr Morphine Sulfate (Morphine Sulfate) 2 mg IVPUSH Q4H PRN PRN Reason: PAIN LEVEL 6-10 Last Admin: 02/10/18 20:09 Dose: 2 mg Ondansetron HCl (Zofran Injection) 4 mg IVPUSH Q4H PRN PRN Reason: NAUSEA AND/OR VOMITING Tamsulosin HCl (Flomax -) 0.4 mg PO BID [facility] Last Admin: 02/10/18 22:11 Dose: 0.4 mg - Objective Vital Signs: Vital Signs Temperature 99.1 F 02/11/18 06:31 Pulse Rate 75 02/11/18 06:31 Respiratory Rate 20 02/11/18 06:31 Blood Pressure 128/68 02/11/18 06:31 O2 Sat by Pulse Oximetry (%) 96 02/10/18 10:00 Constitutional: Yes: Well Nourished Cardiovascular: Yes: WNL Respiratory: Yes: WNL Gastrointestinal: Yes: WNL Labs: CBC, BMP 02/09/18 06:15 02/10/18 10:25 Assessment/Plan complaining of flank pain relieved by morphine, otherwise no anesthetic complication. dept of anesthesia will sign off at this time
[2018-02-11] MEDS: TAMSULOSIN HCL 0.4 MG CAP PO SCH ×2 (09:00→21:25)
[2018-02-11 09:01] LABS: ALBUMIN 3.2 g/dl (3.4-5.0); ALK PHOS 111 U/L (45-117); ANION GAP 10 MMOL/L (8-16); BILIRUBIN,TOTAL 0.8 mg/dL (0.2-1); BLOOD UREA NITROGEN 26 mg/dL (7-18); CALCIUM 8.1 mg/dL (8.5-10.1); CHLORIDE 109 mmol/L (98-107); CO2 21 mmol/L (21-32); CREATININE 1.7 mg/dL (0.55-1.3); GLUCOSE,RANDOM 83 mg/dL (74-106); POTASSIUM 4.2 mmol/L (3.5-5.1); SGOT/AST 14 U/L (15-37); SGPT/ALT 19 U/L (13-61); SODIUM 140 mmol/L (136-145); TOT PROT 6.6 g/dl (6.4-8.2)
[2018-02-11] MEDS: MORPHINE SULFATE 2 MG/ML VIAL IVPUSH PRN (09:33)
--- NOTE | 2018-02-11 12:03 | PN ---
KIYA Arzola Note Chief Complaint: pt c/o severe L flank pain History of Present Illness: pod 2 s/p LULL JJ, (stent removed 02/10) - Objective Vital Signs: Vital Signs Temperature 99.1 F 02/11/18 06:31 Pulse Rate 75 02/11/18 06:31 Respiratory Rate 20 02/11/18 06:31 Blood Pressure 128/68 02/11/18 06:31 O2 Sat by Pulse Oximetry (%) 96 02/10/18 10:00 Gastrointestinal: Yes: Soft, Tenderness Genitourinary: Yes: CVA Tenderness - Left Labs/Additional Data: CBC, BMP 02/09/18 06:15 02/11/18 07:00 Problem List - Problems (1) Ureteral calculus Code(s): N20.1 - CALCULUS OF URETER (2) Kidney stones Assessment/Plan: CTAP, cont pain meds Code(s): N20.0 - CALCULUS OF KIDNEY (3) Renal colic on left side Code(s): N23 - UNSPECIFIED RENAL COLIC
[2018-02-11] MEDS ORDERED: LACTULOSE 20 GM/30 ML UDC (FOR ORAL USE ONLY) PO PRN (12:10)
[2018-02-11] MEDS ORDERED: MORPHINE SULFATE 2 MG/ML VIAL IVPUSH ONE (12:15)
--- NOTE | 2018-02-11 12:18 | PN ---
Progress Note, Physician Chief Complaint: The patient seen and examined in his room. I severe pain. Urine is clear. Patient tolerating IV fluids well. Reports that he has not moved his bowels in more than 2 days. History of Present Illness: 67yo man with history of HTN, remote hx of nephrolithiasis on right side, c/o severe left sided flank pain. Was seen in ER in [facility] and diagnosed 5 mm stone in left UVJ and 4 mm stone in urethra. D/c with pain meds home. Pain returned and patient came to [facility] for further evaluation. The patient had laser Lithotripsy and JJ stent placement. Yesterday the JJ stent was removed because of the pain. Urine output copious and clear. - Current Medication List Current Medications: Active Medications Sodium Chloride (Normal Saline -) 1,000 mls @ 83 mls/hr IV ASDIR [facility] Last Admin: 02/10/18 22:10 Dose: 83 mls/hr Lactulose (Cephulac (Oral Use)) 20 gm PO TID PRN PRN Reason: CONSTIPATION Ondansetron HCl (Zofran Injection) 4 mg IVPUSH Q4H PRN PRN Reason: NAUSEA AND/OR VOMITING Last Admin: 02/11/18 09:25 Dose: 4 mg Tamsulosin HCl (Flomax -) 0.4 mg PO BID [facility] Last Admin: 02/10/18 22:11 Dose: 0.4 mg - Objective Vital Signs: Vital Signs Temperature 99.1 F 02/11/18 06:31 Pulse Rate 75 02/11/18 06:31 Respiratory Rate 20 02/11/18 06:31 Blood Pressure 128/68 02/11/18 06:31 O2 Sat by Pulse Oximetry (%) 96 02/10/18 10:00 Constitutional: Yes: Well Nourished, Anxious, Severe Distress HENT: Yes: Normocephalic Neck: Yes: Trachea Midline Cardiovascular: Yes: S1, S2 Gastrointestinal: Yes: Normal Bowel Sounds, Soft Genitourinary: Yes: CVA Tenderness - Left. No: Bladder Distention, Johnson Present, Hematuria Edema: No Neurological: Yes: Alert, Oriented Labs: CBC, BMP 02/09/18 06:15 02/11/18 07:00 Assessment/Plan 67yo man with history of HTN, remote hx of nephrolithiasis on right side, c/o severe left sided flank pain seen in ER in [facility] and diagnosed 5 mm stone in left UVJ and 4 mm stone in urethra. D/c with pain meds home. Pain returned and patient came to [facility] for further evaluation. The patient had laser Lithotripsy and JJ stent placement. The JJ stent was removed because of severe pains. The left flank pain persists. Maintains good urine output...Clear. Acute Kidney failure from Obstruction and possibly Hemodynamic changes. Azotemia slowly improving. IV fluids well tolerated. Will continue the same.Will maintain euvolemia. For eval if the pain persists. ? CT scan. Will give Lactulose for constipation. Constipation may be related to analgesics. Will need Stone work up in the future. Thank you. Aliyah Castaneda MD
--- NOTE | 2018-02-11 12:52 | PN ---
Progress Note, Physician - Current Medication List Current Medications: Active Medications Sodium Chloride (Normal Saline -) 1,000 mls @ 83 mls/hr IV ASDIR [facility] Last Admin: 02/10/18 22:10 Dose: 83 mls/hr Lactulose (Cephulac (Oral Use)) 20 gm PO TID PRN PRN Reason: CONSTIPATION Last Admin: 02/11/18 12:21 Dose: 20 gm Morphine Sulfate (Morphine Sulfate) 4 mg IVPUSH Q4H PRN PRN Reason: PAIN SCALE 6-10 Ondansetron HCl (Zofran Injection) 4 mg IVPUSH Q4H PRN PRN Reason: NAUSEA AND/OR VOMITING Last Admin: 02/11/18 09:25 Dose: 4 mg Tamsulosin HCl (Flomax -) 0.4 mg PO BID [facility] Last Admin: 02/11/18 09:00 Dose: Not Given - Objective Vital Signs: Vital Signs Temperature 99.1 F 02/11/18 06:31 Pulse Rate 75 02/11/18 06:31 Respiratory Rate 20 02/11/18 06:31 Blood Pressure 128/68 02/11/18 06:31 O2 Sat by Pulse Oximetry (%) 96 02/10/18 10:00 Cardiovascular: Yes: Regular Rate and Rhythm Respiratory: Yes: Regular, CTA Bilaterally Gastrointestinal: Yes: Normal Bowel Sounds, Soft. No: Tenderness Labs: CBC, BMP 02/11/18 07:00 Problem List - Problems (1) JENNIFER (acute kidney injury) Assessment/Plan: -IVF -RENAL noted -MONITOR Code(s): N17.9 - ACUTE KIDNEY FAILURE, UNSPECIFIED (2) Renal colic on left side Assessment/Plan: Operative Date: 02/09/18 Pre-Operative Diagnosis: L UVJ calculus Operation: L ureteroscopic laser lithotripsy and JJ stent insertion Findings: L UVJ calc Surgeon: Rex Figueroa Stent removed due to pain CT scan now Code(s): N23 - UNSPECIFIED RENAL COLIC (3) HTN (hypertension) Assessment/Plan: Monitor Vital Signs Period Temp Pulse Resp BP Sys/Myers Pulse Ox Last 24 Hr 97.5 F-97.8 F 50-67 12-20 102-1126/49-71 96-99 Code(s): I10 - ESSENTIAL (PRIMARY) HYPERTENSION
[2018-02-11 15:14] LABS: BASO % 0.5 % (0-2.0); EOS % 2.1 % (0-4.5); HEMATOCRIT 40.2 % (35.4-49); HEMOGLOBIN 13.3 GM/dL (11.7-16.9); LYMPH % 16.1 % (8-40); MCH 31.1 pg (25.7-33.7); MCHC 33.1 g/dl (32.0-35.9); MEAN CELL VOLUME 93.8 fl (80-96); MEAN PLT VOLUME 7.7 fl (7.5-11.1); MONO % 10.5 % (3.8-10.2); NEUT % 70.8 % (42.8-82.8); PLATELET COUNT 157 K/MM3 (134-434); RBC 4.29 M/mm3 (4.00-5.60); RDW 14.6 % (11.9-15.9); WHITE BLOOD COUNT 7.9 K/mm3 (4.0-10.0)
[2018-02-11] MEDS: morphine SULFATE 4 MG/ML VIAL IVPUSH PRN ×2 (16:35→21:29)
[2018-02-11] MEDS: SODIUM CHLORIDE 1,000 ML IV SCH (16:35)
[2018-02-12] MEDS: morphine SULFATE 4 MG/ML VIAL IVPUSH PRN (02:51)
[2018-02-12] MEDS ORDERED: ACETAMINOPHEN 325 MG TABLET (FP) PO ONE (05:15)
[2018-02-12 08:55] LABS: ALBUMIN 2.9 g/dl (3.4-5.0); ALK PHOS 111 U/L (45-117); ANION GAP 8 MMOL/L (8-16); BLOOD UREA NITROGEN 15 mg/dL (7-18); CALCIUM 8.2 mg/dL (8.5-10.1); CHLORIDE 103 mmol/L (98-107); CO2 25 mmol/L (21-32); CREATININE 1.5 mg/dL (0.55-1.3); GLUCOSE,RANDOM 96 mg/dL (74-106); POTASSIUM 3.9 mmol/L (3.5-5.1); SGOT/AST 41 U/L (15-37); SGPT/ALT 38 U/L (13-61); SODIUM 136 mmol/L (136-145); TOT PROT 6.4 g/dl (6.4-8.2)
[2018-02-12] MEDS: TAMSULOSIN HCL 0.4 MG CAP PO SCH ×2 (09:44→22:42)
[2018-02-12] MEDS: SODIUM CHLORIDE 1,000 ML IV SCH ×2 (09:48→16:38)
--- NOTE | 2018-02-12 11:32 | PN ---
Progress Note, Physician Chief Complaint: NEPHROLITHIASIS History of Present Illness: NAD NPO for cystoscopy CT abd shows 5 mm obstructing stone in left ureter with mild to moderate hydronephrosis - Current Medication List Current Medications: Active Medications Sodium Chloride (Normal Saline -) 1,000 mls @ 83 mls/hr IV ASDIR [facility] Last Admin: 02/12/18 09:48 Dose: 83 mls/hr Lactulose (Cephulac (Oral Use)) 20 gm PO TID PRN PRN Reason: CONSTIPATION Last Admin: 02/11/18 12:21 Dose: 20 gm Morphine Sulfate (Morphine Sulfate) 4 mg IVPUSH Q4H PRN PRN Reason: PAIN SCALE 6-10 Last Admin: 02/12/18 02:51 Dose: 4 mg Ondansetron HCl (Zofran Injection) 4 mg IVPUSH Q4H PRN PRN Reason: NAUSEA AND/OR VOMITING Last Admin: 02/11/18 09:25 Dose: 4 mg Tamsulosin HCl (Flomax -) 0.4 mg PO BID [facility] Last Admin: 02/12/18 09:44 Dose: Not Given - Objective Vital Signs: Vital Signs Temperature 98.3 F 02/12/18 10:00 Pulse Rate 74 02/12/18 10:00 Respiratory Rate 20 02/12/18 10:00 Blood Pressure 130/80 02/12/18 10:00 O2 Sat by Pulse Oximetry (%) 96 02/11/18 21:00 Constitutional: Yes: Well Nourished, No Distress, Calm Cardiovascular: Yes: Regular Rate and Rhythm Respiratory: Yes: Regular Gastrointestinal: Yes: Normal Bowel Sounds, Soft Musculoskeletal: Yes: WNL Extremities: Yes: WNL Edema: No Peripheral Pulses WNL: Yes Neurological: Yes: Alert, Oriented Psychiatric: Yes: Alert, Oriented Labs: CBC, BMP 02/11/18 11:55 02/12/18 06:15 Problem List - Problems (1) JENNIFER (acute kidney injury) Assessment/Plan: -2/2 to uretral obstruction -improving -Nephrology consult -monitor trend Code(s): N17.9 - ACUTE KIDNEY FAILURE, UNSPECIFIED (2) Kidney stones Assessment/Plan: -Seen by Urology -Going for cystoscopy today Code(s): N20.0 - CALCULUS OF KIDNEY (3) Renal colic on left side Assessment/Plan: -pain management -Urology on board -Cystoscopy Code(s): N23 - UNSPECIFIED RENAL COLIC Assessment/Plan see problem list Self ambulatory
[2018-02-12] MEDS ORDERED: MIDAZOLAM HCL 2 MG/2 ML SINGLE DOSE VIAL ONE (13:04)
[2018-02-12] MEDS ORDERED: SUCCINYLCHOLINE CHLORIDE 200 MG/10 ML VIAL ONE (13:05)
[2018-02-12] MEDS ORDERED: PROPOFOL 20 ML ONE ×2 (13:05→13:17)
[2018-02-12] MEDS ORDERED: LIDOCAINE HCL/PF 2% SDV 5ML VIAL ONE (13:05)
[2018-02-12] MEDS ORDERED: ceFAZolin SODIUM 1 GM VIAL IVPB ONE (13:15)
[2018-02-12 13:19] LABS: BASO % 0.2 % (0-2.0); EOS % 1.7 % (0-4.5); HEMOGLOBIN 14.1 GM/dL (11.7-16.9); LYMPH % 13.4 % (8-40); MCHC 33.5 g/dl (32.0-35.9); MEAN CELL VOLUME 92.5 fl (80-96); MEAN PLT VOLUME 7.2 fl (7.5-11.1); MONO % 10.6 % (3.8-10.2); NEUT % 74.1 % (42.8-82.8); PLATELET COUNT 162 K/MM3 (134-434); RBC 4.54 M/mm3 (4.00-5.60); RDW 14.2 % (11.9-15.9); WHITE BLOOD COUNT 7.7 K/mm3 (4.0-10.0)
[2018-02-12] MEDS ORDERED: ceFAZolin SODIUM 1 GM VIAL ONE (13:20)
[2018-02-12] MEDS ORDERED: DEXAMETHASONE SOD PHOSPHATE 4 MG/1 ML VIAL ONE (13:26)
[2018-02-12] MEDS ORDERED: KETOROLAC TROMETHAMINE 30 MG/1 ML VIAL ONE (13:26)
--- NOTE | 2018-02-12 14:07 | OP ---
Operative Note - Note: Operative Date: 02/12/18 Pre-Operative Diagnosis: L ureteral calculus Operation: L ureteroscopic laser lithotripsy and JJ stent insertion Findings: 5 mm L proximal ureteral calculus Post-Operative Diagnosis: Same as Pre-op Surgeon: Rex Figueroa Anesthesiologist/ANALYSIS DIRECTOR: Etienne Hernandes Anesthesia: General Estimated Blood Loss (mls): 0 Drains & Tubes with Location: 6 fr 24 cm L JJ Operative Report Dictated: Yes
[2018-02-12] MEDS ORDERED: LACTATED RINGERS SOLUTION 1,000 ML IV SCH (14:15)
[2018-02-12] MEDS ORDERED: HYDROmorphone HCl 2 MG/ML VIAL ONE (15:36)
[2018-02-12] MEDS ORDERED: HYDROmorphone HCl 2 MG/ML VIAL IVPUSH PRN (15:37)
[2018-02-12] MEDS ORDERED: ACETAMINOPHEN 1000 MG/100 ML VIAL (NON FORMULARY) IVPB ONE ×2 (15:37→15:41)
[2018-02-12] MEDS ORDERED: ACETAMINOPHEN INJECTION 100 ML IVPB ONE (15:37)
[2018-02-12] MEDS ORDERED: HYDROmorphone HCl 2 MG/ML VIAL IVPUSH ONE (15:55)
--- NOTE | 2018-02-12 22:16 | OP ---
DATE OF OPERATION: 02/12/2018 PREOPERATIVE DIAGNOSIS: Left ureteral calculus. POSTOPERATIVE DIAGNOSIS: Left ureteral calculus. PROCEDURE: Cystoscopy, left ureteroscopic laser lithotripsy, left double-J stent insertion. SURGEON: eRx Figueroa MD CANCER PROGRAM COORDINATOR: None. ANESTHESIA: General via laryngeal mask. ANESTHESIOLOGIST: Etienne Hernandes MD SPECIMENS: None. CULTURES: None. DRAINS: A 6-Macanese 24-cm left double-J stent. ESTIMATED BLOOD LOSS: Negligible. COMPLICATIONS: None. DESCRIPTION OF PROCEDURE: Patient was brought in the operating room, placed on the operating table in supine position. After administration of general anesthesia via laryngeal mask, intravenous antibiotics were administered, and the patient was placed in the dorsal lithotomy position. The genitals and perineum were prepped and draped in usual sterile manner. A 22-Macanese cystoscope was inserted to the bladder under direct vision. Anterior and posterior urethras were unremarkable. The bladder was entered, and urine was evacuated. A 30-degree telescope was inserted, and cystoscopy was performed. This demonstrated no foreign bodies, tumors, stones, inflammation. Both ureteral orifices were in their usual location with diminished efflux from the left ureteral orifice. Left ureteral orifice was now cannulated with a 0.038 guidewire which was advanced to the level of the left renal pelvis under fluoroscopic and direct visual guidance. Now, the dual-lumen catheter was inserted. Retrograde pyelogram was done, demonstrated 5-mm stone in the left proximal ureter. Second Super Stiff guidewire was now passed, and the dual-lumen catheter was removed. Flexible ureteroscope was inserted in a monorail fashion over the Super Stiff guidewire to the level of the ureteropelvic junction. Super Stiff guidewire was removed. Then, a 210 micron laser fiber was inserted, and an ureteroscopy was done. Stone was visualized at the proximal ureter, 5 mm in size. Laser lithotripsy was done. The stone was fragmented into minute pieces. Basket was inserted. Largest fragment was basketed, attempted to be removed, but the specimen was lost. The entire course of the ureter now was inspected. No additional stones were seen. Retrograde pyelogram was done, demonstrated mild hydronephrosis. No extravasation of contrast and possible additional calculi in the lower pole. Now, the ureteroscope was removed, cystoscope backloaded, and a 6-Macanese 24-cm left double-J stent was inserted over the guidewire under direct visual and fluoroscopic guidance, leaving 1 coil in the renal pelvis and 1 coil in the bladder. Bladder was emptied. Cystoscope removed. The stent was secured to the penis with a suture and a Tegaderm. He tolerated the procedure well, was awoken from anesthesia in the operating room, extubated, transferred to the recovery room in stable condition. Eze [id number] cc: Sheri Morales MD
[2018-02-13] MEDS: morphine SULFATE 4 MG/ML VIAL IVPUSH PRN ×2 (03:55→17:09)
--- NOTE | 2018-02-13 08:22 | PN ---
Progress Note, Physician - Current Medication List Current Medications: Active Medications Fentanyl (Sublimaze Injection -) 50 mcg IVPUSH [id number] PRN PRN Reason: PAIN-PACU ORDER X 4 DOSES ONLY Hydromorphone HCl (Dilaudid Vial -) 1 mg IVPUSH ONCE PRN PRN Reason: PAIN LEVEL 6-10 Last Admin: 02/13/18 08:17 Dose: 1 mg Sodium Chloride (Normal Saline -) 1,000 mls @ 83 mls/hr IV ASDIR [facility] Last Admin: 02/12/18 16:38 Dose: Not Given Lactulose (Cephulac (Oral Use)) 20 gm PO TID PRN PRN Reason: CONSTIPATION Last Admin: 02/11/18 12:21 Dose: 20 gm Morphine Sulfate (Morphine Sulfate) 4 mg IVPUSH Q4H PRN PRN Reason: PAIN SCALE 6-10 Last Admin: 02/13/18 03:55 Dose: 4 mg Ondansetron HCl (Zofran Injection) 4 mg IVPUSH Q4H PRN PRN Reason: NAUSEA AND/OR VOMITING Last Admin: 02/11/18 09:25 Dose: 4 mg Tamsulosin HCl (Flomax -) 0.4 mg PO BID [facility] Last Admin: 02/12/18 22:42 Dose: 0.4 mg - Objective Vital Signs: Vital Signs Temperature 98.3 F 02/13/18 06:00 Pulse Rate 72 02/13/18 06:00 Respiratory Rate 72 H 02/13/18 06:00 Blood Pressure 146/70 02/13/18 06:00 O2 Sat by Pulse Oximetry (%) 97 02/12/18 21:00 Cardiovascular: Yes: Regular Rate and Rhythm Respiratory: Yes: Regular, CTA Bilaterally Gastrointestinal: Yes: Normal Bowel Sounds, Soft Labs: CBC, BMP 02/12/18 12:33 02/12/18 06:15 Problem List - Problems (1) JENNIFER (acute kidney injury) Assessment/Plan: -IVF -RENAL noted -MONITOR Code(s): N17.9 - ACUTE KIDNEY FAILURE, UNSPECIFIED (2) Renal colic on left side Assessment/Plan: Operative Date: 02/09/18 Pre-Operative Diagnosis: L UVJ calculus Operation: L ureteroscopic laser lithotripsy and JJ stent insertion Findings: L UVJ calc Surgeon: Rex Figueroa Stent removed due to pain CT scan NOTED WITH OBSTRUCTIVE STONE Operative Date: 02/12/18 Pre-Operative Diagnosis: L ureteral calculus Operation: L ureteroscopic laser lithotripsy and JJ stent insertion Findings: 5 mm L proximal ureteral calculus Post-Operative Diagnosis: Same as Pre-op Surgeon: Rex Figueroa Code(s): N23 - UNSPECIFIED RENAL COLIC (3) HTN (hypertension) Assessment/Plan: Monitor Vital Signs Period Temp Pulse Resp BP Sys/Myers Pulse Ox Last 24 Hr 97.5 F-97.8 F 50-67 12-20 102-1126/49-71 96-99 Code(s): I10 - ESSENTIAL (PRIMARY) HYPERTENSION
[2018-02-13] MEDS: TAMSULOSIN HCL 0.4 MG CAP PO SCH ×2 (09:56→22:35)
[2018-02-13 09:59] LABS: BASO % 0.1 % (0-2.0); HEMATOCRIT 41.1 % (35.4-49); HEMOGLOBIN 13.7 GM/dL (11.7-16.9); LYMPH % 11.5 % (8-40); MCHC 33.3 g/dl (32.0-35.9); MEAN CELL VOLUME 92.9 fl (80-96); MEAN PLT VOLUME 7.5 fl (7.5-11.1); MONO % 10.5 % (3.8-10.2); NEUT % 76.9 % (42.8-82.8); PLATELET COUNT 158 K/MM3 (134-434); RBC 4.42 M/mm3 (4.00-5.60); RDW 14.1 % (11.9-15.9); WHITE BLOOD COUNT 9.1 K/mm3 (4.0-10.0)
[2018-02-13 10:31] LABS: ALBUMIN 2.9 g/dl (3.4-5.0); ALK PHOS 107 U/L (45-117); ANION GAP 9 MMOL/L (8-16); BLOOD UREA NITROGEN 17 mg/dL (7-18); CALCIUM 8.2 mg/dL (8.5-10.1); CHLORIDE 105 mmol/L (98-107); CO2 24 mmol/L (21-32); CREATININE 1.1 mg/dL (0.55-1.3); GLUCOSE,RANDOM 91 mg/dL (74-106); POTASSIUM 4.3 mmol/L (3.5-5.1); SGOT/AST 23 U/L (15-37); SGPT/ALT 32 U/L (13-61); SODIUM 138 mmol/L (136-145); TOT PROT 6.3 g/dl (6.4-8.2)
--- NOTE | 2018-02-13 13:39 | PN ---
Progress Note (short form) - Note Progress Note: Renal follow up for JENNIFER Pt seen and examined at the bedside awake and alert complains of left groin pain s/p stent placement yesterday Vital Signs Temperature 98.3 F 02/13/18 06:00 Pulse Rate 72 02/13/18 06:00 Respiratory Rate 72 H 02/13/18 06:00 Blood Pressure 146/70 02/13/18 06:00 O2 Sat by Pulse Oximetry (%) 97 02/13/18 09:00 Intake & Output 02/10/18 02/11/18 02/12/18 02/13/18 23:59 23:59 23:59 23:59 Intake Total 2242 1236 2828 0 Output Total 550 3150 2400 850 Balance 1692 -1914 428 -850 NAD no LE edema no bladder distension CBC, BMP 02/13/18 09:10 02/13/18 09:10 Current Medications Fentanyl (Sublimaze Injection -) 50 mcg IVPUSH [id number] PRN PRN Reason: PAIN-PACU ORDER X 4 DOSES ONLY Hydromorphone HCl (Dilaudid Vial -) 1 mg IVPUSH ONCE PRN PRN Reason: PAIN LEVEL 6-10 Last Admin: 02/13/18 08:17 Dose: 1 mg Sodium Chloride (Normal Saline -) 1,000 mls @ 83 mls/hr IV ASDIR [facility] Last Admin: 02/12/18 16:38 Dose: Not Given Lactulose (Cephulac (Oral Use)) 20 gm PO TID PRN PRN Reason: CONSTIPATION Last Admin: 02/11/18 12:21 Dose: 20 gm Morphine Sulfate (Morphine Sulfate) 4 mg IVPUSH Q4H PRN PRN Reason: PAIN SCALE 6-10 Last Admin: 02/13/18 03:55 Dose: 4 mg Ondansetron HCl (Zofran Injection) 4 mg IVPUSH Q4H PRN PRN Reason: NAUSEA AND/OR VOMITING Last Admin: 02/11/18 09:25 Dose: 4 mg Tamsulosin HCl (Flomax -) 0.4 mg PO BID [facility] Last Admin: 02/13/18 09:56 Dose: 0.4 mg 7yo man with history of HTN, remote hx of nephrolithiasis on right side, admitted with severe left sided flank pain which started 12/6 in am seen in ER in [facility] and diagnosed 5 mm stone in left UVJ and 4 mm stone in urethra with JENNIFER. #JENNIFER secondary to urethal stone causing obstruction Renal function now improved to suspected to near baseline continue IVF for now as pt still passing stones pain control would benefit from stone studies as an outpatient if stone is collected should be sent to pathology for analysis. Thank you Jesse Seals DO
[2018-02-13] MEDS: SODIUM CHLORIDE 1,000 ML IV SCH ×2 (13:53→16:25)
[2018-02-13] MEDS ORDERED: ONDANSETRON 4 MG/2 ML VIAL IVPUSH PRN (15:02)
--- NOTE | 2018-02-13 15:03 | PN ---
Progress Note (short form) - Note Progress Note: ANESTHESIA POST-OP CHECK 67M s/p ureteroscopy, laser lithotripsy and stent placement under general anesthesia, POD #1. C/o nausea, no vomiting, poor appetite. Pain controlled / currently. Vital Signs Temperature 98.3 F 02/13/18 06:00 Pulse Rate 72 02/13/18 06:00 Respiratory Rate 72 H 02/13/18 06:00 Blood Pressure 146/70 02/13/18 06:00 O2 Sat by Pulse Oximetry (%) 97 02/13/18 09:00 Active Medications Fentanyl (Sublimaze Injection -) 50 mcg IVPUSH [id number] PRN PRN Reason: PAIN-PACU ORDER X 4 DOSES ONLY Hydromorphone HCl (Dilaudid Vial -) 1 mg IVPUSH ONCE PRN PRN Reason: PAIN LEVEL 6-10 Last Admin: 02/13/18 08:17 Dose: 1 mg Sodium Chloride (Normal Saline -) 1,000 mls @ 83 mls/hr IV ASDIR [facility] Last Admin: 02/13/18 13:53 Dose: 83 mls/hr Lactulose (Cephulac (Oral Use)) 20 gm PO TID PRN PRN Reason: CONSTIPATION Last Admin: 02/11/18 12:21 Dose: 20 gm Morphine Sulfate (Morphine Sulfate) 4 mg IVPUSH Q4H PRN PRN Reason: PAIN SCALE 6-10 Last Admin: 02/13/18 03:55 Dose: 4 mg Ondansetron HCl (Zofran Injection) 4 mg IVPUSH Q4H PRN PRN Reason: NAUSEA AND/OR VOMITING Last Admin: 02/11/18 09:25 Dose: 4 mg Tamsulosin HCl (Flomax -) 0.4 mg PO BID [facility] Last Admin: 02/13/18 09:56 Dose: 0.4 mg Gen: awake, alert Post-op nausea, likely contribution by dilaudid. Zofran ordered and endorsded to nurse. Continue management as per primary team
--- NOTE | 2018-02-13 17:21 | PATH ---
Surgical Pathology Report Patient Name: MUSA DE SOUZA Med. Rec. #: [id number] /Age/Gender: 1950 (Age: 67) / M Account: [id number] Location: [facility] MED/SURG Taken: 02/09/2018 Received: 02/12/2018 Reported: 02/13/2018 Physicians: Eze Gomes M.D. Specimen(s) Received LEFT URETERAL STONE Clinical History Left ureteral stone Final Diagnosis URETERAL STONE, LEFT, STONE BASKETING: URETEROLITHIASIS. MACROSCOPIC DIAGNOSIS. Electronically Signed Arely Pradhan M.D. Gross Description Received fresh, labeled with the patient's name and indicated on the requisition to be a left ureteral stone, is a 0.3 cm in greatest dimension villarreal-brown, irregular calculus which is sent for chemical analysis. /02/12/201802/12/2018
[2018-02-13] MEDS: DOCUSATE SODIUM 100 MG CAPSULE (FP) PO SCH (22:35)
[2018-02-13] MEDS: SENNOSIDES 8.6MG TABLET (FP) PO SCH (22:35)
[2018-02-14] MEDS: SODIUM CHLORIDE 1,000 ML IV SCH (03:21)
[2018-02-14] MEDS: morphine SULFATE 4 MG/ML VIAL IVPUSH PRN (06:30)
[2018-02-14] MEDS ORDERED: oxyCODONE HCL 5 MG TABLET PO PRN ×2 (09:07→19:07)
--- NOTE | 2018-02-14 09:08 | PN ---
Progress Note, Physician - Current Medication List Current Medications: Active Medications Docusate Sodium (Colace -) 100 mg PO BID [facility] Last Admin: 02/13/18 22:35 Dose: 100 mg Fentanyl (Sublimaze Injection -) 50 mcg IVPUSH [id number] PRN PRN Reason: PAIN-PACU ORDER X 4 DOSES ONLY Hydromorphone HCl (Dilaudid Vial -) 1 mg IVPUSH ONCE PRN PRN Reason: PAIN LEVEL 6-10 Last Admin: 02/13/18 08:17 Dose: 1 mg Sodium Chloride (Normal Saline -) 1,000 mls @ 83 mls/hr IV ASDIR [facility] Last Admin: 02/14/18 03:21 Dose: 83 mls/hr Lactulose (Cephulac (Oral Use)) 20 gm PO TID PRN PRN Reason: CONSTIPATION Last Admin: 02/11/18 12:21 Dose: 20 gm Morphine Sulfate (Morphine Sulfate) 4 mg IVPUSH Q4H PRN PRN Reason: PAIN SCALE 6-10 Last Admin: 02/14/18 06:30 Dose: 4 mg Ondansetron HCl (Zofran Injection) 4 mg IVPUSH Q4H PRN PRN Reason: NAUSEA AND/OR VOMITING Last Admin: 02/11/18 09:25 Dose: 4 mg Ondansetron HCl (Zofran Injection) 4 mg IVPUSH Q4H PRN PRN Reason: NAUSEA AND/OR VOMITING Senna (Senna -) 1 tab PO [facility] Last Admin: 02/13/18 22:35 Dose: 1 tab Tamsulosin HCl (Flomax -) 0.4 mg PO BID [facility] Last Admin: 02/13/18 22:35 Dose: 0.4 mg - Objective Vital Signs: Vital Signs Temperature 98.9 F 02/14/18 06:28 Pulse Rate 82 02/14/18 06:28 Respiratory Rate 20 02/14/18 06:28 Blood Pressure 140/77 02/14/18 06:28 O2 Sat by Pulse Oximetry (%) 97 02/13/18 21:00 Cardiovascular: Yes: Regular Rate and Rhythm Respiratory: Yes: Regular, CTA Bilaterally Gastrointestinal: Yes: Normal Bowel Sounds, Soft Labs: CBC, BMP 02/13/18 09:10 02/13/18 09:10 Problem List - Problems (1) JENNIFER (acute kidney injury) Assessment/Plan: -DC IVF -RENAL noted -MONITOR Code(s): N17.9 - ACUTE KIDNEY FAILURE, UNSPECIFIED (2) Renal colic on left side Assessment/Plan: Operative Date: 02/09/18 Pre-Operative Diagnosis: L UVJ calculus Operation: L ureteroscopic laser lithotripsy and JJ stent insertion Findings: L UVJ calc Surgeon: Rex Figueroa Stent removed due to pain CT scan NOTED WITH OBSTRUCTIVE STONE Operative Date: 02/12/18 Pre-Operative Diagnosis: L ureteral calculus Operation: L ureteroscopic laser lithotripsy and JJ stent insertion Findings: 5 mm L proximal ureteral calculus Post-Operative Diagnosis: Same as Pre-op Surgeon: Rex Figueroa MONITOR ON ORAL MEDS Code(s): N23 - UNSPECIFIED RENAL COLIC (3) HTN (hypertension) Assessment/Plan: Monitor Vital Signs Period Temp Pulse Resp BP Sys/Myers Pulse Ox Last 24 Hr 97.5 F-97.8 F 50-67 12-20 102-1126/49-71 96-99 Code(s): I10 - ESSENTIAL (PRIMARY) HYPERTENSION
[2018-02-14] MEDS: DOCUSATE SODIUM 100 MG CAPSULE (FP) PO SCH ×2 (11:33→21:03)
[2018-02-14] MEDS: TAMSULOSIN HCL 0.4 MG CAP PO SCH ×2 (11:33→21:03)
--- NOTE | 2018-02-14 11:49 | PN ---
Progres Note Chief Complaint: pt c/o L flank pain w voiding, otherwise pain free History of Present Illness: POD # 2 s/p LULL and JJ stent insertion - Objective Vital Signs: Vital Signs Temperature 98.9 F 02/14/18 06:28 Pulse Rate 82 02/14/18 06:28 Respiratory Rate 20 02/14/18 06:28 Blood Pressure 140/77 02/14/18 06:28 O2 Sat by Pulse Oximetry (%) 97 02/13/18 21:00 Constitutional: Yes: Well Nourished, No Distress, Calm Gastrointestinal: Yes: WNL, Normal Bowel Sounds, Soft Genitourinary: Yes: WNL Kidneys: Yes: WNL Pelvis: Yes: WNL Testicles: Yes: WNL Scrotum: Yes: WNL Penis: Yes: WNL Labs/Additional Data: CBC, BMP 02/13/18 09:10 02/13/18 09:10 Problem List - Problems (1) Ureteral calculus Assessment/Plan: OK for disch form standpoint w rx for bactrim ds 1 bid x 1 week and percocet prn pain. F/U in my office Monday 02/19 for stent removal Code(s): N20.1 - CALCULUS OF URETER (2) Kidney stones Code(s): N20.0 - CALCULUS OF KIDNEY (3) Renal colic on left side Code(s): N23 - UNSPECIFIED RENAL COLIC
[2018-02-14] MEDS ORDERED: ACETAMINOPHEN 325 MG TABLET (FP) PO PRN ×2 (19:05)
[2018-02-14] MEDS: oxyCODONE HCL 5 MG TABLET PO PRN ×2 (20:43→23:45)
[2018-02-14] MEDS: SENNOSIDES 8.6MG TABLET (FP) PO SCH (21:03)
--- NOTE | 2018-02-15 08:19 | DS ---
Physical Examination Vital Signs: Vital Signs Temperature 97.6 F 02/15/18 05:00 Pulse Rate 60 02/15/18 05:00 Respiratory Rate 20 02/15/18 05:00 Blood Pressure 145/89 02/15/18 05:00 O2 Sat by Pulse Oximetry (%) 97 02/14/18 20:50 Cardiovascular: Yes: Regular Rate and Rhythm Respiratory: Yes: Regular, CTA Bilaterally Gastrointestinal: Yes: Normal Bowel Sounds, Soft. No: Tenderness Labs: CBC, BMP 02/13/18 09:10 02/13/18 09:10 Discharge Summary Reason For Visit: RENAL COLIC ON LEFT SIDE Current Active Problems JENNIFER (acute kidney injury) (Acute) Kidney stones (Acute) Renal colic on left side (Acute) Ureteral calculus (Acute) Hospital Course: - Problems (1) JENNIFER (acute kidney injury) Assessment/Plan: -DC IVF -RENAL noted -MONITOR Code(s): N17.9 - ACUTE KIDNEY FAILURE, UNSPECIFIED (2) Renal colic on left side Assessment/Plan: Operative Date: 02/09/18 Pre-Operative Diagnosis: L UVJ calculus Operation: L ureteroscopic laser lithotripsy and JJ stent insertion Findings: L UVJ calc Surgeon: Rex Figueroa Stent removed due to pain CT scan NOTED WITH OBSTRUCTIVE STONE Operative Date: 02/12/18 Pre-Operative Diagnosis: L ureteral calculus Operation: L ureteroscopic laser lithotripsy and JJ stent insertion Findings: 5 mm L proximal ureteral calculus Post-Operative Diagnosis: Same as Pre-op Surgeon: Rex Figueroa MONITOR ON ORAL MEDS Code(s): N23 - UNSPECIFIED RENAL COLIC (3) HTN (hypertension) Assessment/Plan: Monitor Vital Signs Period Temp Pulse Resp BP Sys/Myers Pulse Ox Last 24 Hr 97.5 F-97.8 F 50-67 12-20 102-1126/49-71 96-99 Code(s): I10 - ESSENTIAL (PRIMARY) HYPERTENSION Condition: Improved - Instructions Referrals: Sheri Morales MD [Staff Physician] - Rex Figueroa MD [Staff Physician] - Disposition: HOME - Home Medications Comprehensive Discharge Medication List: Ambulatory Orders Tamsulosin HCl [Flomax] 0.4 mg PO BID 02/08/18 Docusate Sodium [Colace -] 100 mg PO BID capsule 02/15/18 Sennosides [Senna -] 1 tab PO HS tablet 02/15/18 oxyCODONE HCL [Roxicodone -] 10 mg PO Q4H PRN #30 tablet MDD 6 02/15/18
[2018-02-15] MEDS: TAMSULOSIN HCL 0.4 MG CAP PO SCH (09:30)
[2018-02-15] MEDS: DOCUSATE SODIUM 100 MG CAPSULE (FP) PO SCH (09:30)
[2018-02-15] MEDS: oxyCODONE HCL 5 MG TABLET PO PRN (09:35)
--- NOTE | 2018-02-15 11:23 | PN ---
Progress Note (short form) - Note Progress Note: ANESTHESIOLOGY POST-OP CHECK 67M s/p anterior/posterior cervical spine surgery under general anesthesia, POD #1. No acute complaints. Pain 5/10 and tolerable. Denies N/V, tolerating PO, ambulating. Vital Signs Temperature 97.6 F 02/15/18 05:00 Pulse Rate 60 02/15/18 05:00 Respiratory Rate 20 02/15/18 05:00 Blood Pressure 145/89 02/15/18 05:00 O2 Sat by Pulse Oximetry (%) 97 02/14/18 20:50 Active Medications Acetaminophen (Tylenol -) 325 mg PO Q4H PRN PRN Reason: FEVER Last Admin: 02/14/18 20:43 Dose: 325 mg Acetaminophen (Tylenol -) 650 mg PO Q4H PRN PRN Reason: PAIN LEVEL 1 - 3 Last Admin: 02/15/18 09:36 Dose: 650 mg Docusate Sodium (Colace -) 100 mg PO BID [facility] Last Admin: 02/15/18 09:30 Dose: 100 mg Hydromorphone HCl (Dilaudid Vial -) 1 mg IVPUSH ONCE PRN PRN Reason: PAIN LEVEL 6-10 Last Admin: 02/13/18 08:17 Dose: 1 mg Lactulose (Cephulac (Oral Use)) 20 gm PO TID PRN PRN Reason: CONSTIPATION Last Admin: 02/11/18 12:21 Dose: 20 gm Ondansetron HCl (Zofran Injection) 4 mg IVPUSH Q4H PRN PRN Reason: NAUSEA AND/OR VOMITING Last Admin: 02/11/18 09:25 Dose: 4 mg Ondansetron HCl (Zofran Injection) 4 mg IVPUSH Q4H PRN PRN Reason: NAUSEA AND/OR VOMITING Oxycodone HCl (Roxicodone -) 5 mg PO Q4H PRN PRN Reason: PAIN LEVEL 4 - 6 Oxycodone HCl (Roxicodone -) 10 mg PO Q4H PRN PRN Reason: PAIN LEVEL 7 - 10 Last Admin: 02/15/18 09:35 Dose: 10 mg Senna (Senna -) 1 tab PO HS [facility] Last Admin: 02/14/18 21:03 Dose: 1 tab Tamsulosin HCl (Flomax -) 0.4 mg PO BID [facility] Last Admin: 02/15/18 09:30 Dose: 0.4 mg Gen: awake, alert, NAD, sitting in chair. No apparent anesthesia complications, pain well controlled with dilaudid [employer]ALTH EDUCATION ASSISTANT. Tolerating PO diet. - Start PO pain meds as per primary team - D/C HEALTH EDUCATION ASSISTANT - Continue management as per primary team.
[2018-02-15 14:01] VITALS: BP 140/82; PULSE 78; TEMP 98.2
--- NOTE | 2018-02-15 16:35 | PN ---
Progress Note (short form) - Note Progress Note: Renal follow up for JENNIFER Pt seen and examined at the bedside has mild abd pain when he urinates no cp, sob, N/V making urine Vital Signs Temperature 98.2 F 02/15/18 09:00 Pulse Rate 78 02/15/18 09:00 Respiratory Rate 20 02/15/18 09:00 Blood Pressure 140/82 02/15/18 09:00 O2 Sat by Pulse Oximetry (%) 97 02/14/18 20:50 NAD soft NT/ND Abd no LE edema CBC, BMP 02/13/18 09:10 02/13/18 09:10 7yo man with history of HTN, remote hx of nephrolithiasis on right side, admitted with severe left sided flank pain which started 12/6 in am seen in ER in [facility] and diagnosed 5 mm stone in left UVJ and 4 mm stone in urethra with JENNIFER. #JENNIFER secondary to urethal stone causing obstruction Renal function improved to baseline Advised pt that he would increase and maintain his oral water intake ~2L daily continue flomax and follow up with urology next week pain control as needed Thank you Jesse Seals DO
[2018-02-20 13:20] LABS: CA OXALATE MONOHYDR. 70 % (.); CALCIUM PHOSPHATE 20 % (.); SIZE 3x3x2 mm (.); WEIGHT 14.4 mg (.)
== END 2018-02-15 14:37 | disposition home or self-care (01) | DRG 661 ==
LOC: JER 20:40 → JERBED 02-09 00:44 → J8W 02-09 05:19 → OBSVTOIN 02-10 13:44
PROVIDERS: ADMIT Internal Medicine; ATTEND Family Medicine
PROC: 0T778DZ Dilation of Left Ureter with Intraluminal Device, Via Natural or Artificial Opening Endoscopic (ICD-10-PCS; 2018-02-09)
PROC: BT1BZZZ Fluoroscopy of Bladder and Urethra (ICD-10-PCS; 2018-02-09)
PROC: 0TC78ZZ Extirpation of Matter from Left Ureter, Via Natural or Artificial Opening Endoscopic (ICD-10-PCS; principal; 2018-02-09 14:00)
DX: N13.2 Hydronephrosis with renal and ureteral calculous obstruction (principal); N17.9 Acute kidney failure, unspecified; N40.0 Benign prostatic hyperplasia without lower urinary tract symptoms; I10 Essential (primary) hypertension; K21.9 Gastro-esophageal reflux disease without esophagitis; Z87.891 Personal history of nicotine dependence
CPT/HCPCS: 36415; 74176-TC; 76000-TC-FY; 80048; 80053; 81003; 81015; 82360; 85025; 85027; 87086; 88300-TC; 94760; 99284-25; G0378; J0131; J7030

== ENCOUNTER 2018-07-02 23:00 | Emergency (ER) | payer BC, OTHER ==
[2018-07-02 23:12] VITALS: BP 145/79; TEMP 98; BMI 27.3
--- NOTE | 2018-07-03 00:36 | PDOC ---
History of Present Illness - General Chief Complaint: Chest Pain Stated Complaint: CHEST PAIN Time Seen by Provider: 07/03/18 00:36 - History of Present Illness Initial Comments: 07/03/18 01:25 The patient is a 67 year old male with a history of HTN, Kidney stones who presents for evaluation of abdominal pain. The patient reports that he was eating lunch at work when he experience sharp epigastric abdominal pain with radiation to his back. He noted that the patient improved throughout the day, but has remained persistent prompting his presentation to the ED for further evaluation. He notes that he had similar pain in the past prior to his cholecystectomy when he had gallstones. He otherwise denies fevers, chills, SOB , chest pain, nausea, vomiting, or changes with urination or bowel movements. Past History - Past Medical History Allergies/Adverse Reactions: Allergies Allergy/AdvReac Type Severity Reaction Status Date / Time No Known Allergies Allergy Verified 07/02/18 23:12 Home Medications: Ambulatory Orders Famotidine [Pepcid] 20 mg PO DAILY #14 tablet 07/03/18 Tamsulosin HCl [Flomax] 0.4 mg PO DAILY 07/03/18 Anemia: No Asthma: Yes Cancer: No Cardiac Disorders: Yes CVA: No COPD: No CHF: No Dementia: No Diabetes: No GI Disorders: Yes (GALL BLADDER DISEASE,GERD) Disorders: No HTN: No Hypercholesterolemia: No Liver Disease: No Seizures: No Thyroid Disease: No - Surgical History Abdominal Surgery: No Cardiac Surgery: No Cholecystectomy: Yes Lung Surgery: No Neurologic Surgery: No Orthopedic Surgery: No - Suicide/Smoking/Psychosocial Hx Smoking History: Former smoker Have you smoked in the past 12 months: No If you are a former smoker, when did you quit?: 40 years ago Information on smoking cessation initiated: No Hx Alcohol Use: No Drug/Substance Use Hx: No Substance Use Type: None Hx Substance Use Treatment: No Review of Systems - Review of Systems Comments:: 07/03/18 01:27 Constitutional: No fevers, chills, fatigue, malaise HEENT: No Rhinorrhea, nasal congestion, visual changes Cardiovascular: No chest pain, syncope, palpitations, lightheadedness Respiratory: No Cough, SOB, Hemoptysis, Gastrointestinal: Abdominal pain, No Nausea, Vomiting, Constipation, Diarrhea, Melena Genitourinary: No Dysuria, Frequency, Urgency, Hesitancy, Hematuria, Flank pain Musculoskeletal: No Myalgia, arthralgia Skin: No rashes, itching, bruising, pallor Neurologic: No Headache, Dizziness, Numbness, Weakness, or Tingling Psychiatric: No Hallucinations. No SI or HI *Physical Exam - Vital Signs Last Vital Signs Temp Pulse Resp BP Pulse Ox 98.0 F 54 L 17 145/79 100 07/02/18 23:08 07/02/18 23:08 07/02/18 23:08 07/02/18 23:08 07/02/18 23:08 - Physical Exam Comments: 07/03/18 01:27 General Appearance: Nourished. No Apparent Distress HEENT: No Pharyngeal Erythema, Tonsillar Exudate, Tonsillar Erythema Neck: No Cervical Lymphadenopathy Respiratory/Chest: Lungs Clear, Normal Breath Sounds. No Crackles, Rales, Rhonchi, Wheezing Cardiovascular: Regular Rhythm, Regular Rate. No Murmur, Gallops, Rubs Gastrointestinal/Abdominal: Normal Bowel Sounds, Soft. Mild RUQ discomfort with palpation on exam. No Guarding, Rebound, Musculoskeletal: No CVA Tenderness Extremity: Normal Capillary Refill Integumentary: Normal Color, Dry, Warm Neurologic: Fully Oriented, Alert, Normal Mood/Affect, Normal Response, ED Treatment Course - LABORATORY CBC & Chemistry Diagram: 07/03/18 01:05 07/03/18 01:05 Medical Decision Making - Medical Decision Making 07/03/18 01:28 The patient is a 67 year old male with a history of HTN, Kidney stones who presents for evaluation of abdominal pain. Differential includes but is not limited to: ACS, Gastritis, Retained gallstone, Infectious, Metabolic Derangement. Given the patient's history and physical exam, we will obtain a cbc, cmp, troponin, lipase, chest plain film, ekg, gallbladder us to evaluate further. We will treat with pepcid and continue to monitor and reassess while here in the ED. 07/03/18 05:05 CBC, cmp, troponin, lipase were unremarkable. Chest plain film was unremarkable. Gallbladder US demonstrated no acute pathology as preliminarily read by our collection manager radiologist. Repeat troponin is unremarkable and repeat EKG is unchanged. The patient was reassessed and reports improvement in their symptoms. We are comfortable discharging the patient home in stable condition. Patient and family made aware of impression and plan, return precautions discussed including but not limited to worsening pain or symptoms, fevers, or signs of infection, chest pain, respiratory distress, inability to tolerate oral intake, dehydration, syncope, or neurologic changes. The patient is to follow up with PMD and as recommended within 1 week, follow up information provided and the patient will call for an appointment. The patient is to take medications as instructed for duration of time and continue with supportive care , avoid triggers and precipitants. Patient is safe for outpatient follow-up. *DC/Admit/Observation/Transfer Diagnosis at time of Disposition: Abdominal pain Qualifiers: Abdominal location: unspecified location Qualified Code(s): R10.9 - Unspecified abdominal pain - Discharge Dispostion Disposition: HOME Condition at time of disposition: Stable Decision to Admit order: No - Prescriptions Prescriptions: Famotidine [Pepcid] 20 mg PO DAILY #14 tablet - Referrals Referrals: Sheri Morales MD [Primary Care Provider] - - Patient Instructions Printed Discharge Instructions: DI for Abdominal Pain-Adult Additional Instructions: 1) Please follow-up with your primary care doctor in the next 2-3 days. Please call tomorrow to schedule a follow up appointment. If you cannot follow up with your doctor within 1 week please return to the Emergency Department for any urgent issues. 2) Your laboratory / imaging results were normal here in the ER. 3) If you have any worsening of symptoms or any other concerns please return to the ER immediately. Return if worsening symptoms including fevers, headache, vomiting, visual or hearing disturbances, abdominal pain, chest pain, shortness of breath, syncope, dehydration, inability to take things by mouth/vomiting, altered mental status, or worsening concerning symptoms. 4) Please continue taking your home medications as directed. Your discharge medications include Pepcid. - Post Discharge Activity
[2018-07-03 01:18] LABS: BASO % 0.5 % (0-2.0); EOS % 2.3 % (0-4.5); HEMATOCRIT 44.1 % (35.4-49); HEMOGLOBIN 15.1 GM/dL (11.7-16.9); LYMPH % 23.3 % (8-40); MCH 30.9 pg (25.7-33.7); MCHC 34.3 g/dl (32.0-35.9); MEAN CELL VOLUME 90.1 fl (80-96); MEAN PLT VOLUME 7.3 fl (7.5-11.1); MONO % 8.6 % (3.8-10.2); NEUT % 65.3 % (42.8-82.8); PLATELET COUNT 223 K/MM3 (134-434); RBC 4.89 M/mm3 (4.00-5.60); RDW 13.7 % (11.9-15.9); WHITE BLOOD COUNT 8.3 K/mm3 (4.0-10.0)
[2018-07-03] MEDS ORDERED: FAMOTIDINE 20 MG/50 ML IVPB 20 MG/50 ML MG IVPB ONE (01:29)
[2018-07-03 01:48] LABS: ALBUMIN 3.6 g/dl (3.4-5.0); ALK PHOS 144 U/L (45-117); ANION GAP 5 MMOL/L (8-16); BILIRUBIN,TOTAL 0.5 mg/dL (0.2-1); BLOOD UREA NITROGEN 19 mg/dL (7-18); CALCIUM 9.2 mg/dL (8.5-10.1); CHLORIDE 104 mmol/L (98-107); CO2 28 mmol/L (21-32); GLUCOSE,RANDOM 101 mg/dL (74-106); LIPASE 209 U/L (73-393); POTASSIUM 4.3 mmol/L (3.5-5.1); SGOT/AST 16 U/L (15-37); SGPT/ALT 27 U/L (13-61); SODIUM 137 mmol/L (136-145); TOT PROT 7.8 g/dl (6.4-8.2)
[2018-07-03 05:03] VITALS: PULSE 50
--- NOTE | 2018-07-03 08:34 | EKG ---
Test Reason : Blood Pressure : / mmHG Vent. Rate : 048 BPM Atrial Rate : 048 BPM P-R Int : 130 ms QRS Dur : 126 ms QT Int : 482 ms P-R-T Axes : 033 263 061 degrees QTc Int : 430 ms SINUS BRADYCARDIA INDETERMINATE AXIS RIGHT BUNDLE BRANCH BLOCK ABNORMAL ECG Confirmed by MD ANGELES, AKANKSHA ([id number]) on 07/03/2018 8:33:53 AM Referred By: Confirmed By:AKANKSHA REYNOSO MD
--- NOTE | 2018-07-03 17:16 | EKG ---
Test Reason : Blood Pressure : / mmHG Vent. Rate : 053 BPM Atrial Rate : 053 BPM P-R Int : 122 ms QRS Dur : 128 ms QT Int : 466 ms P-R-T Axes : 030 -04 028 degrees QTc Int : 437 ms SINUS BRADYCARDIA RIGHT BUNDLE BRANCH BLOCK ABNORMAL ECG WHEN COMPARED WITH ECG OF 02-JUN-2016 20:05, T WAVE INVERSION NOW EVIDENT IN ANTERIOR LEADS Confirmed by MD Carroll, Mitchel ([id number]) on 07/03/2018 5:15:42 PM Referred By: Confirmed By:Mitchel Hodges MD
== END 2018-07-03 05:07 | disposition home or self-care (01) ==
LOC: JER 23:00
DX: R10.9 Unspecified abdominal pain (principal)
CPT/HCPCS: 36415; 71045-TC-FY; 74177-TC; 76705-TC; 80053; 82550; 83690; 84484; 85025; 93005; 93010; 99283-25